=== PATIENT | male | born 1965 | race Caucasian/White ===

== ENCOUNTER 2017-03-03 14:12 | Emergency (ER) | payer OTHER, MEDICAID ==
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
[2017-03-03 14:23] VITALS: O2SAT 94
[2017-03-03 15:09] VITALS: BP 113/72; PULSE 71; RESP 20; TEMP 97.9
== END 2017-03-03 15:09 | disposition home or self-care (01) ==
LOC: EDUNIT#
DX: S29.9XXA Unspecified injury of thorax, initial encounter (principal); E11.9 Type 2 diabetes mellitus without complications; Z87.891 Personal history of nicotine dependence; V43.62XA Car passenger injured in collision with other type car in traffic accident, initial encounter; Y92.410 Unspecified street and highway as the place of occurrence of the external cause; Y99.8 Other external cause status

== ENCOUNTER 2017-04-28 11:49 | Emergency (ER) | payer OTHER, MEDICAID ==
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
[2017-04-28 14:33] VITALS: BP 100/75; PULSE 75; RESP 14; TEMP 97.9; O2SAT 90
== END 2017-04-28 14:25 | disposition home or self-care (01) ==
DX: S29.9XXA Unspecified injury of thorax, initial encounter (principal); E11.9 Type 2 diabetes mellitus without complications; Z87.891 Personal history of nicotine dependence; W22.8XXA Striking against or struck by other objects, initial encounter

== ENCOUNTER → 2017-06-22 | Outpatient (CLI) | payer OTHER, MEDICAID | DX: R13.10 Dysphagia, unspecified (principal); J18.9 Pneumonia, unspecified organism | CPT/HCPCS: 74230; 92611; G8996; G8997; G8998 ==

== ENCOUNTER 2017-08-08 12:32 | Inpatient (IN) | payer OTHER, MEDICAID ==
[2017-08-08] MEDS ORDERED: NS 500 ML IV ONE (13:00)
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
[2017-08-08 13:10] LABS: % IMMATURE GRANULYOCYTES 0.4 % (0.0-1.1); ABSOLUTE IMMATURE GRANULOCYTES 0.06 10^3/uL (0.00-0.10); ADD DIFF? NO; ADD MORPH? NO; ADD SCAN? NO; ATYPICAL LYMPHOCYTE FLAG 0 (0-99); FRAGMENT RBC FLAG 0 (0-99); HEMATOCRIT 42.7 % (40.0-51.0); LEFT SHIFT FLG 20 (0-99); LIPEMIA HEMOLYSIS FLAG 80 (0-99); MEAN CELL HEMOGLOBIN 32.9 pg (27.9-34.1); MEAN CELL HEMOGLOBIN CONCENTR. 32.8 g/dL (32.4-36.7); MEAN CELL VOLUME 100.5 fL (81.5-99.8); PLATELET CLUMPS FLAG 0 (0-99); PLATELET COUNT 88 10^3/uL (150-400); RED BLOOD CELL COUNT 4.25 10^6/uL (4.40-6.38); RED CELL DISTRIBUTION WIDTH 13.8 % (11.5-15.2)
[2017-08-08 13:23] LABS: ANION GAP 7 mEq/L (8-16); CALCIUM 9.3 mg/dL (8.5-10.4); CARBON DIOXIDE 37 mEq/l (22-31); CHLORIDE 101 mEq/L (97-110); CREATININE 0.8 mg/dL (0.7-1.3); GLOMERULAR FILTRATION RATE > 60; GLUCOSE 113 mg/dL (70-100); SODIUM 145 mEq/L (134-144)
[2017-08-08] MEDS ORDERED: ONDANSETRON 4 MG/2 ML VIAL IVP PRN (15:34)
[2017-08-08] MEDS ORDERED: ONDANSETRON DISINTEGRATING 4 MG TAB PO PRN (15:34)
[2017-08-08] MEDS ORDERED: D5W 1/2 NS 1,000 ML IV SCH (15:45)
[2017-08-08] MEDS: AMPICILLIN/SULBACTAM 3 GM in NS 100 ML IV SCH ×3 (17:01→23:20)
[2017-08-08] MEDS: methylPREDNISolone SOD SUCC 125 MG/2 ML VIAL IVP SCH ×3 (17:15→23:21)
[2017-08-08] MEDS: IPRATROPIUM/ALBUTEROL 3 ML DEYVIAL IH SCH ×3 (17:19→23:30)
[2017-08-08] MEDS ORDERED: FUROSEMIDE 40 MG/4 ML VIAL IVP ONE (17:45)
[2017-08-08] MEDS ORDERED: SULFAMETHOX/TMP 800/160 MG 1 TAB PO ONE (17:47)
[2017-08-08] MEDS ORDERED: IOPAMIDOL (ISOVUE 370) 100 ML BTL IV ONE (17:59)
--- NOTE | 2017-08-08 18:01 | PDGENHP ---
History and Physical - Chief Complaint Acute coughing - History of Present Illness 52-year-old male presenting with acute cough characterized as nonproductive, with associated shortness of breath, subjective fever, disorientation with onset of symptoms on the date of presentation and duration persistent thereafter. The patient reports he had otherwise been feeling well prior to his onset of symptoms and had been completing his normal activities of daily living. His caregiver reports that his diet was recently adjusted from thick liquids to thin liquids, but without any apparent aspiration. His shortness of breath is reportedly exacerbated by attempts at physical activity and movement, slightly alleviated by rest. History Information - Allergies/Home Medication List Allergies/Adverse Reactions: No Known Allergies Allergy (Verified 04/28/17 11:50) Home Medications: Albuterol [Proventil Neb] 3 ml IH BID 08/08/17 [Last Taken 08/08/17] Divalproex ER [Depakote ER 500 MG (*)] 1,000 mg PO HS 08/08/17 [Last Taken 08/07] Divalproex ER [Depakote ER 500 MG (*)] 500 mg PO DAILY 08/08/17 [Last Taken ] carBAMazepine [TEGretol (*)] 200 mg PO TID 08/08/17 [Last Taken 08/08/17] I have personally reviewed and updated: family history, medical history, social history, surgical history - Past Medical History Additional medical history: Cerebral palsy with resultant developmental delay, history of 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 PTSD. Seizure disorder. Aspiration pneumonia. Interstitial lung disease with chronic hypoxic respiratory failure, normally on 2 L nasal cannula. Hemorrhoids. Urinary incontinence. Major depressive disorder - Surgical History Reports: no pertinent surgical hx - Family History Additional family history: No venous thromboembolism, no congestive heart failure, a staff member at [facility] recently had the flu and several housemates have also recently been ill - Social History Smoking Status: Former smoker Alcohol Use: None Drug Use: None Additional social history: Lives at [facility], has caretakers, resides in wheelchair most of the time Review of Systems Review of Systems: ROS: 10pt was reviewed & negative except for what was stated in HPI & below Constitutional: Reports: chills, fever, weakness Respiratory: Reports: cough, shortness of breath Neurological: Reports: other (Disorientation) Physical Exam Physical Exam: Temp Pulse Resp BP Pulse Ox 37.5 C 70 21 H 120/73 93 08/08/17 16:35 08/08/17 17:23 08/08/17 16:35 08/08/17 16:35 08/08/17 17:23 O2 (L/minute) 2 Constitutional: not in pain, chronically ill appearing, uncomfortable (With visible tachypnea), other (Sweaty appearing) Eyes: PERRL, anicteric sclera, EOMI Ears, Nose, Mouth, Throat: moist mucous membranes, hearing normal, ears appear normal, no oral mucosal ulcers Cardiovascular: edema (1+ bilateral lower extremities), No systolic murmur, No irregularly irregular, No tachycardia Respiratory: reduced air movement (On expiration bilaterally), expiratory wheeze , inspiratory crackles, respiratory distress (Visible tachypnea and difficulty completing full sentences), No bronchial breath sounds Gastrointestinal: normoactive bowel sounds, soft, non-tender abdomen, no palpable masses, No distension Genitourinary: no bladder fullness, no bladder tenderness Neurologic: AAOx3, sensation intact bilaterally, weakness (4/5 motor strength left lower extremity) Psychiatric: interacting appropriately, not anxious, not encephalopathic, thought process linear, other (Concentration 2/7) Lab Data & Imaging Review 08/08/17 13:00 08/08/17 13:00 WBC 14.36 10^3/uL (3.80-9.50) H 08/08/17 13:00 RBC 4.25 10^6/uL (4.40-6.38) L 08/08/17 13:00 Hgb 14.0 g/dL (13.7-17.5) 08/08/17 13:00 Hct 42.7 % (40.0-51.0) 08/08/17 13:00 MCV 100.5 fL (81.5-99.8) H 08/08/17 13:00 MCH 32.9 pg (27.9-34.1) 08/08/17 13:00 MCHC 32.8 g/dL (32.4-36.7) 08/08/17 13:00 RDW 13.8 % (11.5-15.2) 08/08/17 13:00 Plt Count 88 10^3/uL (150-400) L 08/08/17 13:00 MPV 13.0 fL (8.7-11.7) H 08/08/17 13:00 Neut % (Auto) 74.3 % (39.3-74.2) H 08/08/17 13:00 Lymph % (Auto) 11.6 % (15.0-45.0) L 08/08/17 13:00 Gonzales % (Auto) 13.2 % (4.5-13.0) H 08/08/17 13:00 Eos % (Auto) 0.3 % (0.6-7.6) L 08/08/17 13:00 Baso % (Auto) 0.2 % (0.3-1.7) L 08/08/17 13:00 Nucleat RBC Rel Count 0.0 % (0.0-0.2) 08/08/17 13:00 Absolute Neuts (auto) 10.67 10^3/uL (1.70-6.50) H 08/08/17 13:00 Absolute Lymphs (auto) 1.66 10^3/uL (1.00-3.00) 08/08/17 13:00 Absolute Monos (auto) 1.89 10^3/uL (0.30-0.80) H 08/08/17 13:00 Absolute Eos (auto) 0.05 10^3/uL (0.03-0.40) 08/08/17 13:00 Absolute Basos (auto) 0.03 10^3/uL (0.02-0.10) 08/08/17 13:00 Absolute Nucleated RBC 0.00 10^3/uL (0-0.01) 08/08/17 13:00 Immature Gran % 0.4 % (0.0-1.1) 08/08/17 13:00 Immature Gran # 0.06 10^3/uL (0.00-0.10) 08/08/17 13:00 Sodium 145 mEq/L (134-144) H 08/08/17 13:00 Potassium 4.0 mEq/L (3.5-5.2) 08/08/17 13:00 Chloride 101 mEq/L (97-110) 08/08/17 13:00 Carbon Dioxide 37 mEq/l (22-31) H 08/08/17 13:00 Anion Gap 7 mEq/L (8-16) L 08/08/17 13:00 BUN 17 mg/dL (7-23) 08/08/17 13:00 Creatinine 0.8 mg/dL (0.7-1.3) 08/08/17 13:00 Estimated GFR > 60 08/08/17 13:00 Glucose 113 mg/dL (70-100) H 08/08/17 13:00 Calcium 9.3 mg/dL (8.5-10.4) 08/08/17 13:00 NT-Pro-B Natriuret Pep 1080 pg/mL (0-125) H 08/08/17 13:00 Procalcitonin 0.12 ng/mL (0.02-0.10) H 08/08/17 13:45 TSH 2.080 uIU/mL (0.465-4.680) 08/08/17 13:00 Visualized and Interpreted Chest x-ray results: Yes Chest X-Ray results: other (Diffuse interstitial markings, difficult to determine whether there is a focal infiltrate) Assessment & Plan Assessment: 52-year-old male presents with acute reactive airway exacerbation in the setting of suspected pneumonia and new onset lower extremity edema Plan: 1. Acute reactive airway exacerbation. New problem, further workup indicated. Evidenced by diffuse expiratory wheezes with reduced expiratory air movement and visible tachypnea, requiring up titration of supplemental oxygen to 4 L nasal cannula -unclear whether the patient has had viral precipitant, bacterial pneumonia, pulmonary embolism, CHF -will get CT angiogram to evaluate further -respiratory viral panel unremarkable -get sputum culture -placed on scheduled duo nebs, scheduled IV steroids, antibiotics -currently does not require ABG or BiPAP, but monitor respiratory status closely tonight 2. Suspected pneumonia. Acute, reviewed outside records including 06/03/2017 CBC demonstrating a normal white blood cell count 4900, currently has a white blood cell count of 14,400 with mild left shift as well as symptomatic cough and subjective fever -recent adjustment in liquids from thick to thin, get CHILD PSYCHIATRIST eval for further recommendations -getting advanced CT imaging of chest, if he does have a focal pneumonia, continue bacterial pneumonia coverage and strongly consider this to be an aspiration pneumonia -continue to monitor white blood cell count -placed on Unasyn 3 g q.6 hours -reviewed outside records including 02/12/[address] Marquita Wyatt, she reports the patient had aspiration pneumonia, required intubation, grew out bacteria requiring Bactrim, was discharged on 3 L nasal cannula at discharge -given patient's severity of illness, will give him empirically 1 dose of Bactrim, monitor culture resulting forward 3. Chronic hypoxic respiratory failure. Secondary to interstitial lung disease , getting advanced chest imaging as above, continue supplemental oxygen and monitor for signs of acute on chronic hypoxic respiratory failure if oxygen needs increase and the patient requires greater than his regular supplemental oxygen flow to maintain a sat greater than 90% 4. Lower extremity edema. Unclear whether the patient has a component of congestive heart failure exacerbation, BNP is elevated, his website programmer reports that his lower extremity edema is the for she has seen -get echocardiogram in a.m. -increase from home dosage of Lasix to IV, give 1 dose of 40 at this time, then continue 20 mg IV daily supplemental potassium 5. Cerebral palsy. Chronic, continue on all home medications for seizure and depression Diet. Regular with CHILD PSYCHIATRIST mahnaz in a.m. Prophylaxis. High risk patient, Lovenox 40 Code. Full, his uncle GM is his medical contact, telephone [phone] or [phone] Disposition. Anticipated discharge uncertain this time, anticipated length stay is greater than 48 hours for reasonable medical necessity including acute reactive airway exacerbation and high severity of illness for conditions outlined above. Discussed patient's presentation Dr. Luis Eduardo Pope, we both agree the patient should be monitored closely from a respiratory standpoint.
[2017-08-08] MEDS ORDERED: ALBUTEROL 3 ML DEYVIAL IH PRN (18:30)
--- NOTE | 2017-08-08 19:18 | PDMN ---
Medical Necessity Medical necessity: C/M review: est. > 2 MN LOS for eval and TX of acute reactive airway exacerbation, suspected pneumonia, new onset lower extremity edema requiring planned echocardiogram, ongoing IV Unasyn, Duonebs, IV Lasix, IV steroids, pulse oximetry, supplemental O2 up to 4L/min., acute inpt PT/OT/ST , comorbid chronic hypoxic respiratory failure secondary to interstitial lung disease with baseline chronic o2 2L/min., cerebral palsy with resultant developmental delay, hx traumatic brain injury with resultant left sided hemiparesis with dysphagia, PTSD, seizure disorder, urinary incontinence, major depressive disorder, hx aspiration pneumonia per H/P.
[2017-08-08] MEDS: SENNOSIDES 1 TAB PO SCH (21:01)
[2017-08-08] MEDS: GABAPENTIN 300 MG CAP PO SCH (21:01)
[2017-08-08] MEDS: guaiFENesin 600 MG TAB.ER PO SCH (21:01)
[2017-08-08] MEDS: TAMSULOSIN HCL 0.4 MG CAP PO SCH (21:01)
[2017-08-08] MEDS: carBAMazepine 200 MG TAB PO SCH (21:01)
[2017-08-08] MEDS: ALOE VERA TP SCH (21:02)
[2017-08-08] MEDS: CALCIUM CITRATE PO SCH (21:02)
[2017-08-08] MEDS: VIT D PO SCH (21:02)
[2017-08-08] MEDS: DIVALPROEX ER 500 MG TAB PO SCH (21:02)
[2017-08-08] MEDS: TROLAMINE SALICYLATE TP SCH (21:02)
[2017-08-08] MEDS ORDERED: CARBAMAZEPINE 100 MG CHEWABLE TAB PO SCH (22:00)
[2017-08-09 04:37] LABS: % IMMATURE GRANULYOCYTES 0.5 % (0.0-1.1); ABSOLUTE IMMATURE GRANULOCYTES 0.05 10^3/uL (0.00-0.10); ADD DIFF? NO; ADD MORPH? NO; ADD SCAN? NO; ATYPICAL LYMPHOCYTE FLAG 0 (0-99); FRAGMENT RBC FLAG 0 (0-99); HEMATOCRIT 38.6 % (40.0-51.0); HEMOGLOBIN 12.6 g/dL (13.7-17.5); LEFT SHIFT FLG 0 (0-99); LIPEMIA HEMOLYSIS FLAG 80 (0-99); MEAN CELL HEMOGLOBIN 32.6 pg (27.9-34.1); MEAN CELL HEMOGLOBIN CONCENTR. 32.6 g/dL (32.4-36.7); MEAN PLATELET VOLUME 12.3 fL (8.7-11.7); PLATELET CLUMPS FLAG 0 (0-99); PLATELET COUNT 73 10^3/uL (150-400); RED BLOOD CELL COUNT 3.86 10^6/uL (4.40-6.38); RED CELL DISTRIBUTION WIDTH 13.5 % (11.5-15.2)
[2017-08-09 04:51] LABS: ALANINE AMINOTRANSFERASE 24 IU/L (21-72); ALKALINE PHOSPHATASE 49 IU/L (38-126); ANION GAP 6 mEq/L (8-16); ASPARTATE AMINOTRANSFERASE 14 IU/L (17-59); BILIRUBIN,TOTAL 0.4 mg/dL (0.1-1.4); CALCIUM 8.6 mg/dL (8.5-10.4); CARBON DIOXIDE 40 mEq/l (22-31); CHLORIDE 98 mEq/L (97-110); CREATININE 0.6 mg/dL (0.7-1.3); GLOMERULAR FILTRATION RATE > 60; GLUCOSE 138 mg/dL (70-100); MAGNESIUM 1.8 mg/dL (1.6-2.3); POTASSIUM 4.1 mEq/L (3.5-5.2); SODIUM 144 mEq/L (134-144)
[2017-08-09] MEDS: AMPICILLIN/SULBACTAM 3 GM in NS 100 ML IV SCH ×2 (05:27→12:33)
[2017-08-09] MEDS: methylPREDNISolone SOD SUCC 125 MG/2 ML VIAL IVP SCH ×4 (06:09→23:03)
[2017-08-09] MEDS: GABAPENTIN 300 MG CAP PO SCH ×4 (06:09→20:07)
[2017-08-09] MEDS: IPRATROPIUM/ALBUTEROL 3 ML DEYVIAL IH SCH ×4 (06:11→22:50)
[2017-08-09] MEDS ORDERED: NON-FORMULARY NEW DRUG (Citalopram Hydrobromide [Celexa] 40 MG) PO SCH (09:00)
--- NOTE | 2017-08-09 09:59 | ECHO ---
[email or web address] [address] [address] Main: [phone] Fax: Transthoracic Echocardiogram Name: JODI DONAHUE MR#: [id number] Study Date: 08/09/2017 Study Time: 09:08 AM Date of : 1965 Age: 52 year(s) Height: 182.9 cm (72 in.) Weight: 91.17 kg (201 lb.) BSA: 2.13 m2 Gender: Male Examination: Echo Indication: Possibly new CHF Image Quality: Contrast: Requested by: Navarro Brown BP: 112 mmHg/66 mmHg Heart Rate: Rhythm: Indication: Possibly new CHF Procedure Staff City Maintenance Manager: Sun Menjivar Reading Physician: Kana Coon Requesting Provider: Conclusions: Normal global systolic LV function. The ejection fraction is estimated to be 60-65 %. Mild tricuspid regurgitation is present. Mild pulmonic valve regurgitation is noted. Measurements: Chambers Valvular Assessment AV/MV Valvular Assessment TV/PV Normal Normal Normal Name Value Range Name Value Range Name Value Range Ao Alyson (MM): 3.4 cm (2.2 cm-3.7 AV meanP mmHg ( - ) cm) MV E Vmax: 0.65 m/s ( - ) IVSd (2D): 0.7 cm (0.6 cm-1.1 MV A Vmax: 0.57 m/s ( - ) cm) MV E/A: 1.14 ( - ) LVDd (2D): 4.6 cm (4.2 cm-5.9 cm) LVDs (2D): 2.6 cm (2.1 cm-4 cm) LVPWd (2D): 0.6 cm (0.6 cm-1 cm) LVEF (2D): 75 (>=54 %) EF Range: 60-65 % Continued Measurements: Chambers Valvular Assessment AV/MV Name Value Name Value LADs: 3.3 cm MV E' Septal: 0.07 m/s MV E/E' Septal: 9.10 MV E/E' Lateral: 5.50 Patient: JODI DONAHUE Study Date: 08/09/2017 Page 1 of 2 09:08 AM Findings: Left Ventricle: Normal size left ventricle. No LV hypertrophy. Normal global systolic LV function. The ejection fraction is estimated to be 60-65 %. No regional wall motion abnormality. Right Ventricle: Normal size right ventricle. Left Atrium: The left atrium is normal in size. Right Atrium: The right atrium is normal in size. Mitral Valve: The mitral valve is normal in appearance and function. Aortic Valve: The aortic valve is normal in appearance and function. Tricuspid Valve: The tricuspid valve is normal in appearance and function. Mild tricuspid regurgitation is present. Pulmonic Valve: The pulmonic valve is normal in appearance and function. Mild pulmonic valve regurgitation is noted. Aorta: The aorta is normal. Pericardium: No pericardial effusion. There is pericardial fat. (No Signature Object) Patient: JODI DONAHUE Study Date: 08/09/2017 Page 2 of 2 09:08 AM [id number]
[2017-08-09] MEDS: POTASSIUM CL 20 MEQ TAB PO SCH (10:28)
[2017-08-09] MEDS: guaiFENesin 600 MG TAB.ER PO SCH ×2 (10:28→20:08)
[2017-08-09] MEDS: carBAMazepine 200 MG TAB PO SCH ×3 (10:28→23:03)
[2017-08-09] MEDS: DIVALPROEX ER 500 MG TAB PO SCH ×2 (10:29→20:08)
[2017-08-09] MEDS: SENNOSIDES 1 TAB PO SCH ×2 (10:29→20:08)
[2017-08-09] MEDS: FUROSEMIDE 20 MG/2 ML VIAL IVP SCH (10:30)
[2017-08-09] MEDS: CITALOPRAM 20 MG TAB PO SCH (10:30)
[2017-08-09] MEDS: ENOXAPARIN 40 MG/0.4 ML SYR SC SCH (10:31)
[2017-08-09] MEDS: CALCIUM CITRATE PO SCH (10:41)
[2017-08-09] MEDS: ALOE VERA TP SCH ×2 (10:41→20:08)
[2017-08-09] MEDS: VIT D PO SCH (10:41)
[2017-08-09] MEDS: TROLAMINE SALICYLATE TP SCH ×2 (10:41→20:08)
--- NOTE | 2017-08-09 12:15 | HOSPPROG ---
Hospitalist Progress Note Assessment/Plan: 52-year-old male presents with acute reactive airway exacerbation in the setting of suspected pneumonia and new onset lower extremity edema. First encounter, chart reviewed. Plan: 1. Acute reactive airway exacerbation. -likely the patient has had viral precipitant -CT angiogram no PE, RAD -respiratory viral panel unremarkable -sputum culture pending -placed on scheduled duo nebs, scheduled IV steroids, antibiotics -change abx to azithro 2. Suspected pneumonia. -not likely given CTA -hx of aspiration -procalcitonin .12 -recent adjustment in liquids from thick to thin, get DREDGE PIPEMAN eval for further recommendations -continue to monitor white blood cell count, improved -placed on Unasyn 3 g q.6 hours, will DC. CTA no signs of PNA -follow closely 3. Chronic hypoxic respiratory failure. Secondary to interstitial lung disease, continue supplemental oxygen 4. Lower extremity edema. better BNP is 1080 echocardiogram stable, no signs CHF gave one dose Lasix to IV, give 1 dose of 40 at this time, then continue 20 mg IV daily supplemental potassium 5. Cerebral palsy. Chronic, continue on all home medications for seizure and depression Diet. Regular with DREDGE PIPEMAN eval in a.m. Prophylaxis. High risk patient, Lovenox 40 Code. Full, his uncle GM is his medical contact, telephone [phone] or [phone] Disposition. Anticipated discharge uncertain this time, anticipated length stay is greater than 48 hours for reasonable medical necessity including acute reactive airway exacerbation and high severity of illness for conditions outlined above. Subjective: Feeling better then yesterday. Still coughing. No pain. Objective: Vital Signs Temp Pulse Resp BP Pulse Ox 36.2 C 62 20 112/66 93 08/09/17 08:00 08/09/17 08:00 08/09/17 08:00 08/09/17 08:00 08/09/17 08:00 Laboratory Results 08/09/17 04:25 08/09/17 04:25 08/08/17 08/09/17 08/10/17 05:59 05:59 05:59 Output Total 350 Balance -350 - Physical Exam Constitutional: appears nourished, not in pain, chronically ill appearing Eyes: PERRL, anicteric sclera, EOMI Ears, Nose, Mouth, Throat: moist mucous membranes, hearing normal, ears appear normal Cardiovascular: regular rate and rhythym, edema, No JVD Respiratory: no respiratory distress, no rales or rhonchi, reduced air movement Gastrointestinal: normoactive bowel sounds, No tenderness, No ascites Skin: warm, normal color, No mottled Musculoskeletal: normal joint ROM, no joint effusions, generalized weakness Psychiatric: not anxious, not encephalopathic, poor judgement, poor memory ICD10 Worksheet Patient Problems: Problems Problem Status Onset Acute and chronic respiratory failure with hypoxia Acute Hypoxemia Acute Cough Acute
--- NOTE | 2017-08-09 14:54 | ASMTCMCOM ---
CM Note CM Note Notes: Chart reviewed. Patient here with hypoxia and exacerbation of reactive airway disease. [facility] has caregivers [facility]. CXR stable. Needs TBD at this time.CM to follow. Date Signed: 08/09/2017 02:54 PM Electronically Signed By:Ebony Marquis RN
[2017-08-09] MEDS: CALCIUM CARB W/VIT D 500 MG TAB PO SCH (20:07)
[2017-08-09] MEDS: TAMSULOSIN HCL 0.4 MG CAP PO SCH (20:08)
[2017-08-10] MEDS: methylPREDNISolone SOD SUCC 125 MG/2 ML VIAL IVP SCH (05:21)
[2017-08-10] MEDS: GABAPENTIN 300 MG CAP PO SCH ×4 (05:21→21:29)
[2017-08-10] MEDS: IPRATROPIUM/ALBUTEROL 3 ML DEYVIAL IH SCH ×3 (05:24→16:40)
--- NOTE | 2017-08-10 09:02 | HOSPPROG ---
Hospitalist Progress Note Assessment/Plan: 52-year-old male presents with acute reactive airway exacerbation in the setting of suspected pneumonia and new onset lower extremity edema. First encounter, chart reviewed. * acute reactive airway disease exacerbation -CTA shows no pulmonary emboli -respiratory viral panel negative -on IV steroids as well as azithromycin -will discontinue IV steroids and start him on prednisone * questionable pneumonia -has a history of aspiration, speech therapy to see -procalcitonin level is 0.12 -initially treated with Unasyn -patient states he was febrile on admission * chronic hypoxemic respiratory failure -secondary to interstitial lung disease -has seen pulmonology in the past -CTA shows pulmonary artery hypertension -at baseline patient is on 2 L of oxygen, is currently on 4 L * lower extremity edema -echocardiogram shows an EF of 60-65% with no regional wall abnormalities -on IV lasix/will dc after this morning's dose * thrombocytopenia -will follow * macrocytosis * cerebral palsy -patient lives at [facility] * DVT Prophylaxis. Lovenox was initiated but will hold due to low platelet count -nursing staff to place athrombic pumps Code. Full, his uncle AMOS is his medical contact, telephone [phone] or Subjective: Jason is feeling better today. Says everyone has been sick at [facility]. Objective: Vital Signs Temp Pulse Resp BP Pulse Ox 36.5 C 58 L 12 101/57 L 96 08/10/17 07:37 08/10/17 07:37 08/10/17 07:37 08/10/17 07:37 08/10/17 07:37 Laboratory Results 08/09/17 04:25 08/09/17 04:25 08/09/17 08/10/17 08/11/17 05:59 05:59 05:59 Intake Total 454 Output Total 350 975 Balance -350 -521 - Physical Exam Constitutional: not in pain, chronically ill appearing Eyes: PERRL Ears, Nose, Mouth, Throat: hearing normal Cardiovascular: regular rate and rhythym, edema (1+ bilateral lower ext) Respiratory: no respiratory distress, reduced air movement (mainly in left lower lobe) Gastrointestinal: normoactive bowel sounds Skin: warm Musculoskeletal: generalized weakness Neurologic: other (alert and oriented to person, place/ at times difficult to understand) Psychiatric: interacting appropriately, not anxious ICD10 Worksheet Patient Problems: Problems Problem Status Onset Cough Acute Hypoxemia Acute Acute and chronic respiratory failure with hypoxia Acute
[2017-08-10] MEDS: ENOXAPARIN 40 MG/0.4 ML SYR SC SCH (09:16)
[2017-08-10] MEDS: TROLAMINE SALICYLATE TP SCH ×2 (09:17→21:34)
[2017-08-10] MEDS: ALOE VERA TP SCH ×2 (09:17→21:34)
[2017-08-10] MEDS: CALCIUM CARB W/VIT D 500 MG TAB PO SCH ×2 (09:33→21:29)
[2017-08-10] MEDS: AZITHROMYCIN 250 MG TAB PO SCH (09:34)
[2017-08-10] MEDS: guaiFENesin 600 MG TAB.ER PO SCH ×2 (09:34→21:29)
[2017-08-10] MEDS: CITALOPRAM 20 MG TAB PO SCH (09:35)
[2017-08-10] MEDS: SENNOSIDES 1 TAB PO SCH ×2 (09:35→21:29)
[2017-08-10] MEDS: POTASSIUM CL 20 MEQ TAB PO SCH ×2 (09:35→09:43)
[2017-08-10] MEDS: carBAMazepine 200 MG TAB PO SCH ×3 (09:36→21:29)
[2017-08-10] MEDS: DIVALPROEX ER 500 MG TAB PO SCH ×2 (09:36→21:29)
[2017-08-10] MEDS: predniSONE 20 MG TAB PO SCH (09:39)
[2017-08-10] MEDS: FUROSEMIDE 20 MG/2 ML VIAL IVP SCH (09:43)
[2017-08-10] MEDS ORDERED: FLU VACC QS 2017-18 (3YR+)/PF 0.5 ML SYR (FLUARIX QUAD) IM ONE (09:46)
--- NOTE | 2017-08-10 14:02 | ASMTCMCOM ---
CM Note CM Note Notes: Met with patient who is improving. He lives in [facility] with caretakers. Patient most likely will be able to d/c back to [facility]. He already has O2 at home. CM available if d/c needs arise. Date Signed: 08/10/2017 02:01 PM Electronically Signed By:Macey Soler LCSW
[2017-08-10] MEDS: TAMSULOSIN HCL 0.4 MG CAP PO SCH (21:29)
[2017-08-11] MEDS: IPRATROPIUM/ALBUTEROL 3 ML DEYVIAL IH SCH ×5 (00:03→22:45)
[2017-08-11] MEDS: ACETAMINOPHEN 325 MG TAB PO PRN ×2 (00:15→05:17)
[2017-08-11] MEDS: GABAPENTIN 300 MG CAP PO SCH ×4 (05:17→22:41)
[2017-08-11 05:51] LABS: % IMMATURE GRANULYOCYTES 0.6 % (0.0-1.1); ABSOLUTE IMMATURE GRANULOCYTES 0.05 10^3/uL (0.00-0.10); ADD DIFF? NO; ADD MORPH? NO; ADD SCAN? NO; ATYPICAL LYMPHOCYTE FLAG 20 (0-99); FRAGMENT RBC FLAG 0 (0-99); HEMATOCRIT 37.3 % (40.0-51.0); HEMOGLOBIN 12.1 g/dL (13.7-17.5); LEFT SHIFT FLG 0 (0-99); LIPEMIA HEMOLYSIS FLAG 80 (0-99); MEAN CELL HEMOGLOBIN 32.1 pg (27.9-34.1); MEAN CELL HEMOGLOBIN CONCENTR. 32.4 g/dL (32.4-36.7); MEAN CELL VOLUME 98.9 fL (81.5-99.8); MEAN PLATELET VOLUME 12.8 fL (8.7-11.7); PLATELET CLUMPS FLAG 0 (0-99); PLATELET COUNT 93 10^3/uL (150-400); RED BLOOD CELL COUNT 3.77 10^6/uL (4.40-6.38); RED CELL DISTRIBUTION WIDTH 13.8 % (11.5-15.2)
[2017-08-11] MEDS: DIVALPROEX ER 500 MG TAB PO SCH ×2 (10:02→22:40)
[2017-08-11] MEDS: CITALOPRAM 20 MG TAB PO SCH (10:02)
[2017-08-11] MEDS: SENNOSIDES 1 TAB PO SCH ×2 (10:03→22:41)
[2017-08-11] MEDS: carBAMazepine 200 MG TAB PO SCH ×3 (10:03→22:41)
[2017-08-11] MEDS: predniSONE 20 MG TAB PO SCH (10:03)
[2017-08-11] MEDS: CALCIUM CARB W/VIT D 500 MG TAB PO SCH ×2 (10:03→22:40)
[2017-08-11] MEDS: AZITHROMYCIN 250 MG TAB PO SCH (10:03)
[2017-08-11] MEDS: guaiFENesin 600 MG TAB.ER PO SCH ×2 (10:03→22:41)
--- NOTE | 2017-08-11 10:03 | HOSPPROG ---
Hospitalist Progress Note Assessment/Plan: 52-year-old male presents with acute reactive airway exacerbation in the setting of suspected pneumonia and new onset lower extremity edema. * acute reactive airway disease exacerbation -CTA shows no pulmonary emboli -respiratory viral panel negative -oral steroids and azithro * questionable pneumonia -has a history of aspiration, speech therapy to see -procalcitonin level is 0.12 -initially treated with Unasyn -patient states he was febrile on admission * chronic hypoxemic respiratory failure -secondary to interstitial lung disease -has seen pulmonology in the past -CTA shows pulmonary artery hypertension -he is at his baseline -suspect he is aspirating frequently/ spoke w ST who recommended a video * lower extremity edema -echocardiogram shows an EF of 60-65% with no regional wall abnormalities -was treated w iv lasix * thrombocytopenia -platelet count 93 * macrocytosis * cerebral palsy -patient lives at [facility] * DVT Prophylaxis. Lovenox was initiated but will hold due to low platelet count -nursing staff to place athrombic pumps Code. Full, his uncle AMOS is his medical contact, telephone [phone] or *Plan: will get video today. If stable, he could return to [facility]. Subjective: Jason is feeling better today. Eating and drinking well. Objective: Vital Signs Temp Pulse Resp BP Pulse Ox 37.0 C 63 14 95/60 L 92 08/11/17 07:23 08/11/17 07:23 08/11/17 07:23 08/11/17 07:23 08/11/17 07:23 Laboratory Results 08/11/17 04:56 08/09/17 04:25 08/10/17 08/11/17 08/12/17 05:59 05:59 05:59 Intake Total 454 772 Output Total 975 300 Balance -521 472 - Physical Exam Constitutional: no apparent distress, chronically ill appearing Eyes: PERRL Ears, Nose, Mouth, Throat: hearing normal Respiratory: no respiratory distress Skin: warm Musculoskeletal: generalized weakness Neurologic: AAOx3 Psychiatric: interacting appropriately, not anxious, not encephalopathic ICD10 Worksheet Patient Problems: Problems Problem Status Onset Cough Acute Hypoxemia Acute Acute and chronic respiratory failure with hypoxia Acute
[2017-08-11] MEDS: ALOE VERA TP SCH ×2 (10:12→22:42)
[2017-08-11] MEDS: TROLAMINE SALICYLATE TP SCH ×2 (10:12→22:42)
--- NOTE | 2017-08-11 16:15 | ASMTCMCOM ---
CM Note CM Note Notes: Nayana from [facility] called for an update. Patient had a swallow eval today and has been placed on a Dysphagia 2 diet. Faxed the information to Nayana with [facility] at [phone]. Deb Alcala NP plans to d/c patient tomorrow 08/11/2017 after 10:00 AM. Kalpana states they can send their van to transport patient back home. CM will need to call her tomorrow to agree upon a time and the d/c packet needs to be faxed to [phone]. (they do not have [employer]) CM will follow. Date Signed: 08/11/2017 04:15 PM Electronically Signed By:Macey Soler LCSW
[2017-08-11] MEDS: TAMSULOSIN HCL 0.4 MG CAP PO SCH (22:40)
[2017-08-12] MEDS: IPRATROPIUM/ALBUTEROL 3 ML DEYVIAL IH SCH (05:33)
[2017-08-12] MEDS: GABAPENTIN 300 MG CAP PO SCH (05:37)
[2017-08-12] MEDS: CITALOPRAM 20 MG TAB PO SCH (08:49)
[2017-08-12] MEDS: guaiFENesin 600 MG TAB.ER PO SCH (08:49)
[2017-08-12] MEDS: AZITHROMYCIN 250 MG TAB PO SCH (08:49)
[2017-08-12] MEDS: predniSONE 20 MG TAB PO SCH (08:50)
[2017-08-12] MEDS: CALCIUM CARB W/VIT D 500 MG TAB PO SCH (08:50)
[2017-08-12] MEDS: DIVALPROEX ER 500 MG TAB PO SCH (08:50)
[2017-08-12] MEDS: carBAMazepine 200 MG TAB PO SCH (08:50)
[2017-08-12] MEDS: SENNOSIDES 1 TAB PO SCH (08:50)
[2017-08-12] MEDS: TROLAMINE SALICYLATE TP SCH (08:51)
[2017-08-12] MEDS: ALOE VERA TP SCH (08:51)
--- NOTE | 2017-08-12 08:53 | HOSPPROG ---
Hospitalist Progress Note Assessment/Plan: 52-year-old male presents with acute reactive airway exacerbation in the setting of suspected pneumonia and new onset lower extremity edema. * acute reactive airway disease exacerbation -CTA shows no pulmonary emboli -respiratory viral panel negative -oral steroids and azithro -much improved * questionable pneumonia -video study doesn't show overt aspiration -procalcitonin level is 0.12 -initially treated with Unasyn -patient states he was febrile on admission * chronic hypoxemic respiratory failure -secondary to interstitial lung disease -has seen pulmonology in the past -CTA shows pulmonary artery hypertension -he is at his baseline * lower extremity edema -echocardiogram shows an EF of 60-65% with no regional wall abnormalities -was treated w iv lasix -better today * thrombocytopenia -platelet count 93 * macrocytosis * cerebral palsy -patient lives at [facility] * DVT Prophylaxis. Lovenox was initiated but will hold due to low platelet count -nursing staff to place athrombic pumps Code. Full, his uncle GM is his medical contact, telephone [phone] or *Plan: dc today Subjective: Jason has no complaints/ sleepy this morning. Objective: Vital Signs Temp Pulse Resp BP Pulse Ox 36.9 C 63 16 101/63 92 08/11/17 23:29 08/11/17 23:29 08/11/17 23:29 08/11/17 23:29 08/11/17 23:29 Laboratory Results 08/11/17 04:56 08/09/17 04:25 08/11/17 08/12/17 08/13/17 05:59 05:59 05:59 Intake Total 772 200 Output Total 300 600 Balance 472 -400 - Physical Exam Constitutional: no apparent distress, not in pain Ears, Nose, Mouth, Throat: hearing normal Cardiovascular: regular rate and rhythym Respiratory: no respiratory distress Skin: warm Musculoskeletal: generalized weakness Neurologic: AAOx3 Psychiatric: interacting appropriately ICD10 Worksheet Patient Problems: Problems Problem Status Onset Cough Acute Hypoxemia Acute Acute and chronic respiratory failure with hypoxia Acute
--- NOTE | 2017-08-12 08:58 | PDIAF ---
- Diagnosis Diagnosis: acute reactive airway disease Code Status: Full Code - Medication Management Discharge Medications: Medications to Continue on Transfer Tamsulosin HCl [Flomax 0.4 MG (*)] 0.4 mg PO HS #0 cap 02/12/15 [Last Taken ] Calcium Citrate W/Vit D [Citracal + D] 2 each PO BID #60 tab 03/06/15 [Last Taken 08/08/17] Citalopram Hydrobromide [Celexa] 40 mg PO DAILY #30 tablet 03/06/15 [Last Taken 08/08/17] Furosemide [Lasix 20 MG (*)] 10 mg PO DAILY #14 tab 03/06/15 [Last Taken ] Gabapentin [Neurontin 300 MG (*)] 300 mg PO QID #120 cap 03/06/15 [Last Taken ] Sennosides [Senokot] 1 tab PO BID #60 tab 03/06/15 [Last Taken 08/08/17] Trolamine Salicylate/Aloe Vera [Aspercreme 10% Cream] 1 anil TP BID #30 cream.gm. 03/06/15 [Last Taken 08/08/17] guaiFENesin [Mucinex 600 MG (*)] 600 mg PO BID #60 tab.er 03/06/15 [Last Taken 08/08/17] Albuterol [Proventil Neb] 3 ml IH BID 08/08/17 [Last Taken 08/08/17] Divalproex ER [Depakote ER 500 MG (*)] 1,000 mg PO HS 08/08/17 [Last Taken 08/07] Divalproex ER [Depakote ER 500 MG (*)] 500 mg PO DAILY 08/08/17 [Last Taken ] carBAMazepine [TEGretol (*)] 200 mg PO TID 08/08/17 [Last Taken 08/08/17] predniSONE 20 mg PO DAILY #6 tablet 08/12/17 [Last Taken Unknown] Discharge Medications: Refer to the Discharge Home Medication list for PRN reason. - Orders Services needed: Home Care, Speech Language Pathologist Home Care Face to Face: I certify that this patient was under my care and that I had the required [id number] encounter meeting the encounter requirements on the discharge day. My findings support the fact that the patient is homebound as defined in Home Care Face to Face Continued: CMS Chapter 7 Medicare Benefits Manual 30.1.1 , The condition of the patient is such that there exists a normal inability to leave home and consequently, leaving home would require a considerable and taxing effort. Isolation Type: None Diet Recommendation: no restrictions on diet Diet Texture: Dysphagia 2 - Mechanically Altered - Chopped, Ground, Thin Liquids , Meds Whole w/Liquids Additional: PREDNSIONE 20 MG X 3 DAYS, THEN 10 MG X 3 DAYS, the stop. Take w food in the morning. - Follow Up Care Current Providers and Referrals: TAMMY WEINER [Other] - As per Instructions
[2017-08-12 09:06] VITALS: BP 131/68; PULSE 69; RESP 18; TEMP 97.9; O2SAT 89
--- NOTE | 2017-08-12 09:29 | GDS ---
[f rep st] DISCHARGE SUMMARY DISCHARGE DIAGNOSES: 1. Acute reactive airway disease exacerbation. 2. Concern for pneumonia on admission. 3. Chronic hypoxemic respiratory failure. 4. Lower extremity edema. 5. Thrombocytopenia. 6. Macrocytosis. 7. Cerebral palsy. HISTORY: Briefly, the patient is a 52-year-old male who presented with acute reactive airway disease exacerbation. There was concern that he had pneumonia and new onset lower extremity edema. During his stay, he had a CTA that was performed that showed no visible pulmonary embolus. It shows that he has grossly stable interstitial lung disease with probable superimposed airway disease. He had pulmonary artery hypertension. An echocardiogram was performed. This showed an EF of 60% to 65%, without any regional wall abnormalities. He was treated with IV Lasix for his lower extremity swelling. This improved. Also, there was concern that he was aspirating. He had a video esophagram swallow study performed, which showed no aspiration observed. He had trace penetration that was intermittently seen with thin liquids. He will be discharged home on a detailed diet, instructions per Speech Therapy. HOSPITAL COURSE: 1. Acute reactive airway disease exacerbation. His respiratory viral panel is negative. He was treated with oral steroids and azithromycin. He is much improved. Will continue a few more days of the prednisone. 2. Questionable pneumonia. There is a concern he might be aspirating. The video study did not show this. He also had a low procalcitonin level at 0.12. 3. Chronic hypoxemic respiratory failure. He is at his baseline. 4. Lower extremity edema. He is on low-dose Lasix chronically. This improved with a few doses of IV Lasix. 5. Thrombocytopenia. Further followup with his PCP. 6. Macrocytosis. Further followup with PCP through palsy. He lives at [facility] and gets good care there. DISCHARGE CONDITION: Stable. Blood pressure is 101/63. Heart rate is 63. Respiratory rate is 16. O2 saturation on 2 L is 92%. Temperature is 36.9 Celsius. DISCHARGE MEDICATIONS: Please see the EMR. DISCHARGE INSTRUCTIONS: 1. To continue recommendations per Speech Therapy. 2. If he develops a fever, chills, chest pain, or shortness of breath, return to the ER. Greater than 30 minutes discharging and coordinating patient's care. /[id number]/MODL MTDD
--- NOTE | 2017-08-12 15:57 | ASDISCHSUM ---
Discharge Information Plan Status:Intermediate Medically Cleared to Leave:08/11/2017 Discharge Date:08/12/2017 12:31 PM CM D/C Disposition: ADT D/C Disposition:Long-Term Facility Projected Discharge Date:08/12/2017 12:00 AM Transportation at D/C: Discharge Delay Reason: Follow-Up Date:08/12/2017 12:00 AM Discharge Slot: Final Diagnosis: Placement Information Patient Contact Information Contact Name:ENZO Relationship: Address: City: [facility] Phone: State/Zip Code: Email: Financial Information Financial Class: Primary Plan Desc:MEDICARE INPATIENT Primary Plan Number:[id number] Secondary Plan Desc:MED[place] Secondary Plan Number:[id number] Assessment Information LACE LACE Acuity / Level of Care Answers: Was the patient admitted to hospital via the emergency department? Yes: Comorbidities - select Answers: Chronic pulmonary disease all that apply Emergency dept visits in Answers: 1 last 6 months Score: 6 Date Signed: 08/09/2017 02:52 PM Electronically Signed By:Ebony Marquis RN [facility] Progress Note CM Note CM Note Notes: Chart reviewed. Patient here with hypoxia and exacerbation of reactive airway disease. He has caregivers and lives in a fdc. CXR stable. Needs TBD at this time.CM to follow. Date Signed: 08/09/2017 02:54 PM Electronically Signed By:Ebony Marquis RN [facility] Progress Note CM Note CM Note Notes: Met with patient who is improving. He lives in [facility] with caretakers. Patient most likely will be able to d/c back to [facility]. He already has O2 at home. CM available if d/c needs arise. Date Signed: 08/10/2017 02:01 PM Electronically Signed By:Macey Soler LCSW [facility] Progress Note CM Note CM Note Notes: Nayana from [facility] called for an update. Patient had a swallow eval today and has been placed on a Dysphagia 2 diet. Faxed the information to Nayana with [facility] at [phone]. Deb Alcala NP plans to d/c patient tomorrow 08/11/2017 after 10:00 AM. Kalpana states they can send their van to transport patient back home. CM will need to call her tomorrow to agree upon a time and the d/c packet needs to be faxed to [phone]. (they do not have [employer]) CM will follow. Date Signed: 08/11/2017 04:15 PM Electronically Signed By:Macey Soler LCSW Intervention Information Intervention Type:*GARCIA-Signed Date of Service:08/12/2017 09:53 AM Patient Type:Inpatient Staff Member:Rosangela Flynn Hours: Discipline: Severity: Comment:
== END 2017-08-12 12:31 | DRG 202 ==
LOC: F3E 16:18 → OBSVTOIN 18:11
PROVIDERS: ADMIT Internal Medicine; ATTEND Internal Medicine
DX: J45.901 Unspecified asthma with (acute) exacerbation (principal); J84.10 Pulmonary fibrosis, unspecified; J96.11 Chronic respiratory failure with hypoxia; I27.21 Secondary pulmonary arterial hypertension; D69.6 Thrombocytopenia, unspecified; D75.89 Other specified diseases of blood and blood-forming organs; G80.9 Cerebral palsy, unspecified; F81.9 Developmental disorder of scholastic skills, unspecified; G40.909 Epilepsy, unspecified, not intractable, without status epilepticus; Z87.820 Personal history of traumatic brain injury; G81.94 Hemiplegia, unspecified affecting left nondominant side; F32.9 Major depressive disorder, single episode, unspecified; Z23 Encounter for immunization
CPT/HCPCS: 92526-GN; 92610-GN; 92611-GN; 97162-GP; 97166-GO; 97530-GP; 97535-GO; G0008; G8978-GP-CL; G8979-GP-CK; G8987-GO-CL; G8988-GO-CL; G8996-GN-CJ; G8997-GN-CI; G8998-GN-CI; J0295; J1650; J1940; J2930; Q9967

== ENCOUNTER 2018-01-18 11:00 | Emergency (ER) | payer OTHER, MEDICAID ==
[2018-01-18] MEDS ORDERED: IPRATROPIUM/ALBUTEROL 3 ML DEYVIAL ONE (12:17)
[2018-01-18] MEDS ORDERED: IPRATROPIUM/ALBUTEROL 3 ML DEYVIAL IH ONE (12:17)
--- NOTE | 2018-01-18 12:17 | EDPHY ---
H & P Stated Complaint: Cough for several days, low oxygen at home. Time Seen by Provider: 01/18/18 11:55 HPI/ROS: CHIEF COMPLAINT: Acute cough HISTORY OF PRESENT ILLNESS: The patient presents to the ED with a 1 day history of acute cough and reported hypoxemia. The patient has a history of chronic interstitial lung disease. He is typically on 2-3 L a minute of oxygen. The patient receives a nebulizer twice a day. The patient is wheelchair-bound. The patient has not been recently hospitalized. No recent antibiotics according to caregiver. The patient denies fever. He denies any acute painful complaints. REVIEW OF SYSTEMS: A comprehensive 10 point review of systems is otherwise negative aside from elements mentioned in the history of present illness. Source: Patient - Personal History Current Tetanus Diphtheria and Acellular Pertussis (TDAP): Yes Tetanus Vaccine Date: 2008 - Medical/Surgical History Hx Asthma: No Hx Chronic Respiratory Disease: Yes Hx Diabetes: Yes Hx Cardiac Disease: No Hx Renal Disease: No Hx Cirrhosis: No Hx Alcoholism: No Hx HIV/AIDS: No Hx Splenectomy or Spleen Trauma: No Other PMH: CP, DYSPHAGIA, FATIGUE, SZ, HEMOROIDS, ARDS, PULMONARY FIBROSIS, INTERSTITIAL LUNG DX, DEPRESSION,Mental Retardation, PTSTD, brain injury - Social History Smoking Status: Former smoker - Physical Exam Exam: General Appearance: Alert, no distress Eyes: Pupils equal and round no pallor or injection ENT, Mouth: Mucous membranes moist Respiratory: Crackles bilaterally Cardiovascular: Regular rate and rhythm Gastrointestinal: Abdomen is soft and nontender, no masses, bowel sounds normal Neurological: Lower extremity weakness secondary to chronic neurologic disease Skin: Warm and dry, no rashes Musculoskeletal: Neck is supple nontender Extremities: symmetrical, full range of motion Constitutional: Initial Vital Signs Temperature (C) 37.1 C 01/18/18 11:03 Heart Rate 74 01/18/18 11:03 Respiratory Rate 20 01/18/18 11:03 Blood Pressure 107/64 01/18/18 11:03 O2 Sat (%) 96 01/18/18 11:03 O2 Delivery Mode Nasal Cannula O2 (L/minute) 3 Allergies/Adverse Reactions: No Known Allergies Allergy (Verified 04/28/17 11:50) Home Medications: Medication Instructions Recorded Tamsulosin HCl [Flomax 0.4 MG (*)] 0.4 mg PO HS #0 cap 02/12/15 Calcium Citrate W/Vit D [Citracal 2 each PO BID #60 tab 03/06/15 + D] Citalopram Hydrobromide [Celexa] 40 mg PO DAILY #30 tablet 03/06/15 Furosemide [Lasix 20 MG (*)] 10 mg PO DAILY #14 tab 03/06/15 Gabapentin [Neurontin 300 MG (*)] 300 mg PO QID #120 cap 03/06/15 Sennosides [Senokot] 1 tab PO BID #60 tab 03/06/15 Trolamine Salicylate/Aloe Vera 1 anil TP BID #30 cream.gm. 03/06/15 [Aspercreme 10% Cream] guaiFENesin [Mucinex 600 MG (*)] 600 mg PO BID #60 tab.er 03/06/15 Albuterol [Proventil Neb] 3 ml IH BID 08/08/17 Divalproex ER [Depakote ER 500 MG 1,000 mg PO HS 08/08/17 (*)] Divalproex ER [Depakote ER 500 MG 500 mg PO DAILY 08/08/17 (*)] carBAMazepine [TEGretol (*)] 200 mg PO TID 08/08/17 predniSONE 20 mg PO DAILY #6 tablet 08/12/17 Medical Decision Making - Diagnostics Imaging Results: Imaging Impressions Chest X-Ray 01/18/18 11:55 Impression: Suspect recurrent aspiration in the right mid lung superimposed on underlying interstitial lung disease. ED Course/Re-evaluation: The patient presents to the ED with complaints of an acute cough. The patient was noted to be at his baseline oxygen saturation. The patient did have some rhonchorous breath sounds. The patient was taken for a chest x-ray which suggested the possibility of a recurrent aspiration. The patient is afebrile. He has no hypotension or tachycardia. The patient was given a DuoNeb treatment in the emergency department. The patient will be treated with antibiotics for possible aspiration. Differential Diagnosis: Differential diagnosis considered includes asthma, bronchitis, pneumonia, heart failure - Data Points Medications Given: Discontinued Medications Albuterol/Ipratropium (Duoneb) 3 ml IH EDNOW ONE Stop: 01/18/18 12:18 Last Admin: 01/18/18 12:18 Dose: 3 ml Departure - Departure Disposition: Home, Routine, Self-Care Clinical Impression: Acute and chronic respiratory failure with hypoxia Condition: Good Instructions: Chronic Cough (ED) Additional Instructions: 1. Take antibiotics as prescribed for next 10 days. 2. Return to the ED for markedly worsening symptoms or other concerns. 3. Please continue to use albuterol up to every 6 hr as needed for cough. Referrals: ROBERT COLVIN [Other] - As per Instructions
[2018-01-18 13:10] VITALS: BP 111/71
== END 2018-01-18 13:24 | disposition home or self-care (01) ==
DX: J96.20 Acute and chronic respiratory failure, unspecified whether with hypoxia or hypercapnia (principal); E11.9 Type 2 diabetes mellitus without complications; Z87.891 Personal history of nicotine dependence

== ENCOUNTER 2018-01-18 22:52 | Inpatient (IN) | payer OTHER, MEDICAID ==
[2018-01-18] MEDS ORDERED: ALBUTEROL 3 ML DEYVIAL IH ONE ×2 (22:58→23:12)
[2018-01-18] MEDS ORDERED: MAGNESIUM SULF 2 GM/WATER 50 ML IV ONE ×2 (22:58)
[2018-01-18] MEDS ORDERED: methylPREDNISolone SOD SUCC 40 MG/ML VIAL ONE (22:59)
[2018-01-18] MEDS ORDERED: MAGNESIUM SULF 2 GM/WATER 50 ML BAG IV ONE (22:59)
--- NOTE | 2018-01-18 23:04 | CPEKG ---
Heart Rate: 99 RR Interval: 606 P-R Interval: 144 QRSD Interval: 84 QT Interval: 336 QTC Interval: 432 P Denton: 80 QRS [place]enton: 96 T Wave Denton: 55 EKG Severity - OTHERWISE NORMAL ECG - EKG Impression: SINUS RHYTHM EKG Impression: BORDERLINE RIGHT AXIS DEVIATION Electronically Signed By: Zaira Quevedo 19-Jan-2018 22:43:23
[2018-01-18] MEDS: methylPREDNISolone SOD SUCC 125 MG/2 ML VIAL IVP ONE ×2 (23:05→23:06)
[2018-01-18] MEDS ORDERED: PIPERACILLIN/TAZO 3.375 GM/DEX 50 ML IV ONE (23:07)
[2018-01-18] MEDS ORDERED: IPRATROPIUM/ALBUTEROL 3 ML DEYVIAL IH ONE (23:12)
[2018-01-18 23:29] LABS: PLATELET COUNT 103 10^3/uL (150-400)
[2018-01-19] MEDS ORDERED: ONDANSETRON 4 MG/2 ML VIAL IVP PRN (00:56)
[2018-01-19] MEDS ORDERED: ONDANSETRON DISINTEGRATING 4 MG TAB PO PRN (00:56)
[2018-01-19] MEDS ORDERED: ALBUTEROL 3 ML DEYVIAL IH PRN ×2 (00:56→10:14)
[2018-01-19] MEDS ORDERED: ACETAMINOPHEN 325 MG TAB PO PRN (00:56)
--- NOTE | 2018-01-19 03:51 | PDGENHP ---
History and Physical - Chief Complaint SOB - History of Present Illness 52 yo M w/ hx of CP, ILD, CHRF, and prior aspiration pneumonia presents with shortness of breath. Patient seen in ED earlier today with cough and hypoxemia. CXR showed possible aspiration but patient was on stable O2 and afebrile so he was discharged with oral antibiotics. Upon returning to his facility, however, he continued to worsen and display increasing respiratory distress. He returned to ED in severe respiratory distress initially requiring BIPAP. By the time of my evaluation patient is stable on 6 L/min O2. He is very fatigued on my evaluation and not providing additional history. History Information - Allergies/Home Medication List Allergies/Adverse Reactions: No Known Allergies Allergy (Verified 01/18/18 23:21) Home Medications: Albuterol [Proventil Neb] 3 ml IH BID 08/08/17 [Last Taken 08/08/17] Divalproex ER [Depakote ER 500 MG (*)] 1,000 mg PO HS 08/08/17 [Last Taken 08/07] Divalproex ER [Depakote ER 500 MG (*)] 500 mg PO DAILY 08/08/17 [Last Taken ] carBAMazepine [TEGretol (*)] 200 mg PO TID 08/08/17 [Last Taken 08/08/17] I have personally reviewed and updated: family history, medical history - Past Medical History Additional medical history: Cerebral palsy with resultant developmental delay, history of 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 PTSD. Seizure disorder. Aspiration pneumonia. Interstitial lung disease with chronic hypoxic respiratory failure, normally on 2 L nasal cannula. Hemorrhoids. Urinary incontinence. Major depressive disorder - Surgical History Reports: no pertinent surgical hx - Family History Additional family history: No venous thromboembolism, no congestive heart failure, a staff member at [facility] recently had the flu and several housemates have also recently been ill - Social History Smoking Status: Former smoker Additional social history: Lives at [facility], has caretakers, resides in wheelchair most of the time Review of Systems Review of Systems: ROS: 10pt was reviewed & negative except for what was stated in HPI & below Physical Exam Physical Exam: Temp Pulse Resp BP Pulse Ox 37.3 C 94 32 H 130/93 H 95 01/19/18 01:31 01/19/18 01:31 01/19/18 01:31 01/19/18 01:31 01/19/18 01:31 O2 (L/minute) 6 Constitutional: uncomfortable, other (Fatigued) Ears, Nose, Mouth, Throat: moist mucous membranes, no oral mucosal ulcers Cardiovascular: regular rate and rhythym, no murmur, rub, or gallop Respiratory: respiratory distress (Mild to moderate), rhonchi (Diffuse) Gastrointestinal: normoactive bowel sounds, soft, non-tender abdomen Skin: warm, normal color Musculoskeletal: other (L sided weakness, contractures) Neurologic: sensation intact bilaterally, weakness (L side) Psychiatric: other (Fatigued, decreased interaction) Lab Data & Imaging Review 01/18/18 20:15 01/18/18 20:15 WBC 13.31 10^3/uL (3.80-9.50) H 01/18/18 20:15 RBC 4.71 10^6/uL (4.40-6.38) 01/18/18 20:15 Hgb 14.9 g/dL (13.7-17.5) 01/18/18 20:15 POC Hgb 16.0 gm/dL (13.7-17.5) 01/18/18 23:08 Hct 47.4 % (40.0-51.0) 01/18/18 20:15 POC Hct 47 % (40-51) 01/18/18 23:08 MCV 100.6 fL (81.5-99.8) H 01/18/18 20:15 MCH 31.6 pg (27.9-34.1) 01/18/18 20:15 MCHC 31.4 g/dL (32.4-36.7) L 01/18/18 20:15 RDW 13.6 % (11.5-15.2) 01/18/18 20:15 Plt Count 103 10^3/uL (150-400) L 01/18/18 20:15 MPV 12.4 fL (8.7-11.7) H 01/18/18 20:15 Neut % (Auto) Not Reported 01/18/18 20:15 Lymph % (Auto) Not Reported 01/18/18 20:15 [place] % (Auto) Not Reported 01/18/18 20:15 Eos % (Auto) Not Reported 01/18/18 20:15 Baso % (Auto) Not Reported 01/18/18 20:15 Nucleat RBC Rel Count Not Reported 01/18/18 20:15 Absolute Neuts (auto) Not Reported 01/18/18 20:15 Absolute Lymphs (auto) Not Reported 01/18/18 20:15 Absolute Monos (auto) Not Reported 01/18/18 20:15 Absolute Eos (auto) Not Reported 01/18/18 20:15 Absolute Basos (auto) Not Reported 01/18/18 20:15 Absolute Nucleated RBC Not Reported 01/18/18 20:15 Immature Gran % Not Reported 01/18/18 20:15 Seg Neutrophils % 66.0 % 01/18/18 20:15 Band Neutrophils % 0 % 01/18/18 20:15 Lymphocytes % 21.0 % 01/18/18 20:15 Monocytes % 13.0 % 01/18/18 20:15 Eosinophils % 0 % 01/18/18 20:15 Basophils % 0 % 01/18/18 20:15 Metamyelocytes % 0 % 01/18/18 20:15 Myelocytes % 0 % 01/18/18 20:15 Promyelocytes % 0 % 01/18/18 20:15 Blast Cells % 0 % 01/18/18 20:15 Immature Gran # Not Reported 01/18/18 20:15 Absolute Seg Neuts 8.78 10^/uL (1.70-6.50) H 01/18/18 20:15 Absolute Band Neuts 0.00 10^3/uL (0.00-0.70) 01/18/18 20:15 Absolute Lymphocytes 2.80 10^3/uL (1.00-3.00) 01/18/18 20:15 Absolute Monocytes 1.73 10^3/uL (0.30-0.80) H 01/18/18 20:15 Absolute Eosinophils 0.00 10^3/uL (0.03-0.40) L 01/18/18 20:15 Absolute Basophils 0.00 10^3/uL (0.02-0.10) L 01/18/18 20:15 Absolute Metamyelocyte 0.00 10^3/mL (0.00-0.00) 01/18/18 20:15 Absolute Myelocytes 0.00 10^3/mL (0.00-0.00) 01/18/18 20:15 Absolute Promyelocytes 0.00 10^3/uL (0.00-0.00) 01/18/18 20:15 Absolute Plasma Cells 0.00 10^3/uL (0.00-0.00) 01/18/18 20:15 Absolute Blast Cells 0.00 10^3/uL (0.00-0.00) 01/18/18 20:15 Plasma Cells % 0 % 01/18/18 20:15 Platelet Estimate DECREASED (ADEQ) L 01/18/18 20:15 Basophilic Stippling 1+ H 01/18/18 20:15 Oval Macrocytes 2+ H 01/18/18 20:15 D-Dimer 0.65 ug/mLFEU (0.00-0.50) H 01/18/18 20:15 Puncture Site NONE GIVEN 01/18/18 23:05 Patient Temperature 37.0 DEGREES 01/18/18 23:05 pCO2 70 mmHg (34-38) H 01/18/18 23:05 pO2 209 mmHg (65-75) H 01/18/18 23:05 Total CO2 36 mEq/L (23-27) H 01/18/18 23:05 ABG pH 7.31 (7.35-7.45) L 01/18/18 23:05 ABG HCO3 34 mEq/L (22-26) H 01/18/18 23:05 ABG O2 Saturation 99 % (92-95) H 01/18/18 23:05 ABG Base Excess 5.2 mEq/L (-2.5-2.5) H 01/18/18 23:05 ABG Lactic Acid 0.7 mmol/L (0.5-1.6) 01/18/18 23:05 VBG Lactic Acid 1.3 mmol/L (0.7-2.1) 01/18/18 23:05 POC Sodium 145 mEq/L (135-145) 01/18/18 23:08 Sodium 145 mEq/L (135-145) 01/18/18 20:15 POC Potassium 4.2 mEq/L (3.3-5.0) 01/18/18 23:08 Potassium 4.3 mEq/L (3.5-5.2) 05/07/18 20:15 POC Chloride 99 mEq/L (97-110) 01/18/18 23:08 Chloride 98 mEq/L (97-110) 01/18/18 20:15 Carbon Dioxide 40 mEq/l (22-31) H 01/18/18 20:15 Anion Gap 7 mEq/L (8-16) L 01/18/18 20:15 POC BUN 20 mg/dL (7-23) 01/18/18 23:08 BUN 21 mg/dL (7-23) 01/18/18 20:15 Creatinine 0.7 mg/dL (0.7-1.3) 01/18/18 20:15 POC Creatinine 0.9 mg/dL (0.7-1.3) 01/18/18 23:08 Estimated GFR > 60 01/18/18 20:15 Glucose 103 mg/dL (70-100) H 01/18/18 20:15 POC Glucose 110 mg/dL (70-100) H 01/18/18 23:08 Calcium 9.3 mg/dL (8.5-10.4) 01/18/18 20:15 Troponin I 0.017 ng/mL (0.000-0.034) 01/18/18 20:15 Imaging Review: Imaging Impressions Chest X-Ray 01/18/18 22:55 Impression: 1. Lines/tubes: None 2. Stable right mid and upper lung consolidation suggesting aspiration. 3. Stable severe interstitial lung disease. 4. Cardiomediastinal silhouette, bones and soft tissues are not significantly changed. Visualized and Interpreted EKG results: Yes EKG Interpretation: Positive for: normal sinsus rhythm, other (Tachycardia) Assessment & Plan Assessment: 52 yo M w/ CP, ILD, CHRF, and chronic aspiration p/w aspiration pneumonia. Plan: 1. Sepsis 2/2 aspiration pneumonia - 4/4 SIRS criteria present on admission; source likely aspiration PNA seen on CXR. Patient failed outpatient treatment and returned with severe respiratory distress. - Admit to SDU for close monitoring - Maintain NPO, COMPUTER NETWORKING INSTRUCTOR eval in the morning - Unasyn for aspiration pneumonia, blood cultures obtained 2. Acute on chronic HRF - Required BIPAP in the ED, now stable on 6 L/min O2 via face mask. Chronically on 2-3 L/min O2 due to ILD. - Acute infectious treatment as above - Methylprednisone 60 mg q6h + scheduled albuterol QID until respiratory status improves noting significant baseline respiratory disease 3. ILD, reactive airway disease - Severe, stable ILD seen on admission CXR. Will treat aggressively initially noting minimal reserve. 4. Hx CP, TBI, seizure d/o - Wheelchair bound with L-sided deficits. Continue home medications. Diet - NPO pending COMPUTER NETWORKING INSTRUCTOR eval Code - Full Ppx - LMWH Dispo - Admit to SDU under inpatient status noting sepsis and severe respiratory distress
[2018-01-19] MEDS: AMPICILLIN/SULBACTAM 3 GM in NS 100 ML IV SCH ×3 (05:02→17:45)
[2018-01-19] MEDS: methylPREDNISolone SOD SUCC 125 MG/2 ML VIAL IVP SCH ×3 (05:05→17:46)
[2018-01-19] MEDS ORDERED: ALBUTEROL 3 ML DEYVIAL IH SCH (06:00)
--- NOTE | 2018-01-19 07:21 | EDPHY ---
H & P Stated Complaint: resp distress Time Seen by Provider: 01/18/18 23:10 HPI/ROS: HPI The patient presents with shortness of breath and hypoxia, he is brought in by ambulance from his assisted living facility. He was seen earlier today and diagnosed with aspiration pneumonia, started on antibiotics and r was discharged and was not in any respiratory distress. Since he has been home he has been more tachypneic than usual. He wears 2 L of nasal cannula at baseline, however when paramedics found him his oxygenation was about 60%. He was started on CPAP and brought in for evaluation. He has been coughing significantly though has not had a fever. REVIEW OF SYSTEMS Constitutional: No fever, no chills. Eyes: No discharge. ENT: No sore throat. Cardiovascular: No chest pain, no palpitations. Respiratory: See HPI Gastrointestinal: No abdominal pain, no vomiting. Genitourinary: No hematuria. Musculoskeletal: No back pain. Skin: No rashes. Neurological: No headache. 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 PHYSICAL General Appearance: Alert, in obvious respiratory distress Eyes: Pupils equal and round no pallor or injection ENT, Mouth: Mucous membranes moist Respiratory: There is tachypnea, retractions, patient currently on CPAP, decreased breath sounds on the right Cardiovascular: Regular rate and rhythm Gastrointestinal: Abdomen is soft and non-tender, no masses, bowel sounds normal Neurological: A&O, moves all extremities Skin: Warm and dry, no rashes Musculoskeletal: Neck is supple non tender Extremities: symmetrical, full range of motion Psychiatric: Patient is oriented X 3, there is no agitation Source: Patient, EMS Exam Limitations: Clinical condition - Personal History Current Tetanus/Diphtheria Vaccine: Yes Tetanus Vaccine Date: 2008 - Medical/Surgical History Hx Asthma: No Hx Chronic Respiratory Disease: Yes Hx Diabetes: Yes Hx Cardiac Disease: No Hx Renal Disease: No Hx Cirrhosis: No Hx Alcoholism: No Hx HIV/AIDS: No Hx Splenectomy or Spleen Trauma: No Other PMH: CP, DYSPHAGIA, FATIGUE, SZ, HEMOROIDS, ARDS, PULMONARY FIBROSIS, INTERSTITIAL LUNG DX, DEPRESSION,Mental Retardation, PTSTD, brain injury - Social History Smoking Status: Former smoker Constitutional: Initial Vital Signs Temperature (C) 38.3 C 01/18/18 23:10 Heart Rate 104 H 01/18/18 23:10 Respiratory Rate 38 H 01/18/18 23:10 Blood Pressure 110/83 H 01/18/18 23:10 O2 Sat (%) 104 H 01/18/18 23:10 O2 Delivery Mode Oxymask O2 (L/minute) 6 Allergies/Adverse Reactions: No Known Allergies Allergy (Verified 01/18/18 23:21) Home Medications: Medication Instructions Recorded Tamsulosin HCl [Flomax 0.4 MG (*)] 0.4 mg PO HS #0 cap 02/12/15 Calcium Citrate W/Vit D [Citracal 2 each PO BID #60 tab 03/06/15 + D] Citalopram Hydrobromide [Celexa] 40 mg PO DAILY #30 tablet 03/06/15 Furosemide [Lasix 20 MG (*)] 10 mg PO DAILY #14 tab 03/06/15 Gabapentin [Neurontin 300 MG (*)] 300 mg PO QID #120 cap 03/06/15 Trolamine Salicylate/Aloe Vera 1 anil TP BID #30 cream.gm. 03/06/15 [Aspercreme 10% Cream] guaiFENesin [Mucinex 600 MG (*)] 600 mg PO BID #60 tab.er 03/06/15 Albuterol [Proventil Neb] 3 ml IH BID 08/08/17 Divalproex ER [Depakote ER 500 MG 1,000 mg PO HS 08/08/17 (*)] Divalproex ER [Depakote ER 500 MG 500 mg PO DAILY 08/08/17 (*)] carBAMazepine [TEGretol (*)] 200 mg PO TID 08/08/17 Amoxicillin/Clavulanate Pot 875 mg PO BID #20 tab 01/18/18 [Augmentin 875 mg tablet] Herbals/Supplements -Info Only 1 ea PO DAILY 01/19/18 Medical Decision Making - Diagnostics EKG Interpretation: EKG: Complete interpretation has been separately recorded in the [facility] archive. Summary impression: Normal sinus rhythm Imaging Results: Chest x-ray single view demonstrates persistent right upper and middle lobe infiltrates with interstitial lung disease, discussed with the radiologist Dr. Ross. Imaging: Discussed imaging studies w/ call or contact centre manager Radiologist, I viewed and interpreted images myself Differential Diagnosis: 52-year-old man brought in by ambulance from assisted living in respiratory distress. Seen earlier today in the emergency department and diagnosed with an aspiration pneumonia, started on antibiotics. Has declined since he has been at home. Initial sats in the 60s according to EMS, started on CPAP with improvement in his symptoms. Here, he is satting in the 80s on CPAP. I met the paramedics at the bedside and obtained their report. The patient was continued on CPAP and started with nebulized albuterol in-line. IV line was established, patient was given Solu-Medrol, magnesium. Basic labs were obtained. Chest x-ray demonstrated right-sided likely aspiration pneumonia. He was given Zosyn. After several hours we were able to transfer him to a face mask. He still is slightly tachypneic though seems to have improved. We plan to admit him to the hospitalist. I have discussed the case with Dr. Corrigan. D-dimer was slightly elevated, however just mildly. Given his x-ray results and current presentation, I feel his symptoms are likely related to his aspiration pneumonia. However, if he does not improve within the next few days , CT scan of the chest could be obtained. Critical Care Time: CRITICAL CARE Critical care time spent by me, Dr. Quevedo, exclusively with this patient was 45 minutes, exclusive of PA time and exclusive of procedures. The organ system at risk was respiratory and I gave BiPAP, continuous nebs, steroids, transfer the patient to the step-down unit to prevent worsening of the patients condition. - Data Points Laboratory Results: Laboratory Results 01/18/18 20:15 01/18/18 20:15 Medications Given: Albuterol (Proventil Neb) 3 ml IH QID KELLEY Stop: 07/18/18 11:59 Last Admin: 01/20/18 05:14 Dose: 3 ml Calcium/Vitamin D (Calcium Carb W/Vit D) 1,000 mg PO BID KELLEY Stop: 07/18/18 20:59 Last Admin: 01/19/18 21:49 Dose: 1,000 mg Carbamazepine (Tegretol) 200 mg PO TID KELLEY Stop: 07/18/18 08:59 Last Admin: 01/19/18 21:50 Dose: 200 mg Divalproex Sodium (Depakote Er) 500 mg PO DAILY KELLEY Stop: 07/18/18 08:59 Last Admin: 01/19/18 09:59 Dose: 500 mg Divalproex Sodium (Depakote Er) 1,000 mg PO HS KELLEY Stop: 07/18/18 20:59 Last Admin: 01/19/18 21:50 Dose: 1,000 mg Enoxaparin Sodium (Lovenox) 40 mg SC DAILY KELLEY Stop: 07/18/18 08:59 Last Admin: 01/19/18 10:00 Dose: 40 mg Gabapentin (Neurontin) 300 mg PO QID KELLEY Stop: 07/18/18 11:59 Last Admin: 01/20/18 06:08 Dose: 300 mg Guaifenesin (Mucinex) 1,200 mg PO BID KELLEY Stop: 07/18/18 08:59 Last Admin: 01/19/18 21:50 Dose: 1,200 mg Ampicillin Sodium/Sulbactam (Sodium 3 gm/ Sodium Chloride) 100 mls @ 200 mls/ hr IV Q6HRS KELLEY PRN Reason: Protocol Stop: 02/18/18 05:59 Last Admin: 01/20/18 06:05 Dose: 100 mls Dextrose/Sodium Chloride (D5w 1/2 Ns) 1,000 mls @ 100 mls/hr IV CONT KELLEY Stop: 07/18/18 11:14 Last Admin: 01/20/18 06:15 Dose: 1,000 mls Methylprednisolone Sodium Succinate (Solu-Medrol) 60 mg IVP Q6HRS KELLEY Stop: 07/18/18 05:59 Last Admin: 01/20/18 06:08 Dose: 60 mg Senna (Senokot) 1 tab PO BID KELLEY Stop: 07/18/18 08:59 Last Admin: 01/19/18 21:49 Dose: 1 tab Tamsulosin HCl (Flomax) 0.4 mg PO HS KELLEY Stop: 07/18/18 20:59 Last Admin: 01/19/18 21:49 Dose: 0.4 mg Trolamine Salicylate (Aspercreme) 1 anil TP BID KELLEY Stop: 07/18/18 20:59 Last Admin: 01/19/18 21:50 Dose: 1 anil Discontinued Medications Albuterol (Proventil Neb) 10 ml IH CONT ONE Stop: 01/18/18 22:59 Last Admin: 01/18/18 23:26 Dose: 10 ml Albuterol (Proventil Neb) 15 ml IH EDNOW ONE Stop: 01/18/18 23:13 Last Admin: 01/18/18 23:23 Dose: 15 ml Albuterol (Proventil Neb) 3 ml IH QID KELLEY Stop: 07/18/18 05:59 Last Admin: 01/19/18 05:48 Dose: 3 ml Albuterol/Ipratropium (Duoneb) 3 ml IH EDNOW ONE Stop: 01/18/18 23:13 Last Admin: 01/18/18 23:26 Dose: 3 ml Magnesium Sulfate (Magnesium Sulf 2 Gm (Premix)) 50 mls @ 50 mls/hr IV EDNOW ONE Stop: 01/18/18 23:57 Last Admin: 01/18/18 23:04 Dose: 50 mls Magnesium Sulfate (Magnesium Sulf 2 Gm (Premix)) 50 mls @ 50 mls/hr IV EDNOW ONE Stop: 01/18/18 23:57 Last Admin: 01/18/18 23:50 Dose: Not Given Piperacillin/Tazobactam/Dextrose (Zosyn 3.375 Gm (Premix)) 50 mls @ 100 mls/hr IV EDNOW ONE PRN Reason: Protocol Stop: 01/18/18 23:36 Last Admin: 01/18/18 23:50 Dose: 50 mls Methylprednisolone Sodium Succinate (Solu-Medrol) 125 mg IVP EDNOW ONE Stop: 01/18/18 22:59 Last Admin: 01/18/18 23:06 Dose: 125 mg Departure - Departure Disposition: [facility] Clinical Impression: Hypoxemia, Cough, Interstitial lung disease Aspiration pneumonia Qualifiers: Aspiration pneumonia type: unspecified Laterality: right Lung location: unspecified part of lung Qualified Code(s): J69.0 - Pneumonitis due to inhalation of food and vomit Condition: Critical
[2018-01-19 07:42] LABS: PLATELET COUNT 88 10^3/uL (150-400)
[2018-01-19] MEDS ORDERED: TROLAMINE SALICYLATE TP SCH (09:00)
[2018-01-19] MEDS ORDERED: NON-FORMULARY NEW DRUG (Citalopram Hydrobromide [Celexa] 40 MG) PO SCH (09:00)
[2018-01-19] MEDS ORDERED: CALCIUM CITRATE PO SCH (09:00)
[2018-01-19] MEDS ORDERED: VIT D PO SCH (09:00)
[2018-01-19] MEDS ORDERED: ALOE VERA TP SCH (09:00)
--- NOTE | 2018-01-19 09:04 | GCON ---
[f rep st] CONSULTATION PLAN EXAMINER CONSULTATION REASON FOR ADMISSION: Acute hypercarbic respiratory failure. HISTORY: The patient is a 52-year-old white male with extensive past medical history including cereb ral palsy, traumatic brain injury, seizure disorder, aspiration pneumonia, with interstiti al lung disease. He is on chronic supplemental oxygen. He presents to the emergency room with cough and decreased oxygen levels. He was initially seen in the emergency room and then subsequently disc harged. He returned in severe respiratory distress, this requiring BiPAP, and he was subsequently ad mitted to the step-down unit. Currently, patient is somewhat somnolent, but appears to be resting co mfortably on CPAP. All history is gleaned from the medical record. PAST MEDICAL HISTORY: Again, significant for cerebral palsy, depression, urinary incontinence, hemor rhoids, traumatic brain injury, left-sided hemiparesis, PTSD, seizure disorder, aspiration, pneumonia , interstitial lung disease, and chronic respiratory failure. ALLERGIES: No known allergies to medications. FAMILY HISTORY: Noncontributory. SOCIAL HISTORY: Former smoker. He currently resides at the [facility]. REVIEW OF SYSTEMS: A 10-point review of systems was performed, was negative except for what is state d in the HPI. PHYSICAL EXAM: VITAL SIGNS: Blood pressure is 113/66, pulse 75, respirations 22, temperature is 36. 9, oxygen saturation 92% on 40% BiPAP. GENERAL: He is a well-developed 52-year-old male, who is elana nolent on BiPAP. HEENT: Eyes are PERRLA, EOMI. Throat exam is deferred. NECK: Supple. No cervic al adenopathy. He has a scar from previous tracheostomy. HEART: Regular rate and rhythm with a 2/6 systolic murmur at the left sternal border without radiation. LUNGS: Diminished breath sounds. A few bibasilar crackles, right greater the left. ABDOMEN: Soft, nontender. Bowel sounds are present . EXTREMITIES: No clubbing, cyanosis, or edema. LABORATORIES: White count is 9.8, hemoglobin 12, hematocrit 41, platelet count is 88. Sodium 148, p otassium 4.5, chloride 102, CO2 is 37, BUN 21, creatinine 0.6, glucose is 146. Arterial blood gas, p H 7.32, pCO2 is 72, PO2 of 61, bicarb 30, oxygen saturation is 88%. Chest x-ray shows severe initial lung disease. There is some evidence of increased consolidation on the right. IMPRESSION: 1. Probable aspiration pneumonia. 2. Hypercarbic respiratory failure. 3. History of chronic respiratory failure. 4. Cerebral palsy. 5. Post-traumatic stress disorder. 6. Depression. RECOMMENDATIONS: 1. Agree with BiPAP. 2. Recheck ABG to assess efficacy. 3. Agree with current antibiotic coverage. 4. Agree with current steroids consisting of Solu-Medrol 60 mg q.6 hours. 5. DVT and PE prophylaxis. 6. Stress ulcer prophylaxis. 7. Physical Therapy and Occupational Therapy. /[id number]/MODL
--- NOTE | 2018-01-19 09:38 | ASMTCMCOM ---
CM Note CM Note Notes: 52yr old male admitted for Respiratory distress-sepsis; Hypoxia, PNA. He has a Hx of Interstitial lung dis, CP-DD, ILD, CHRF, TBI-L sided weakness, Dysphasia, Sz diso, urinary incontinence, PTSD, Major Depressive Diso. Patient has [employer] caregivers, primarily wheelchair bound. His uncle Govind is his medical decision maker, . CM to follow for discharge needs. Date Signed: 01/19/2018 09:38 AM Electronically Signed By:Leigh Ann Aguilar LCSW
[2018-01-19] MEDS: guaiFENesin 600 MG TAB.ER PO SCH ×2 (09:59→21:50)
[2018-01-19] MEDS: DIVALPROEX ER 500 MG TAB PO SCH ×2 (09:59→21:50)
[2018-01-19] MEDS: SENNOSIDES 1 TAB PO SCH ×2 (09:59→21:49)
[2018-01-19] MEDS: ENOXAPARIN 40 MG/0.4 ML SYR SC SCH (10:00)
[2018-01-19] MEDS: CARBAMAZEPINE 100 MG CHEWABLE TAB PO SCH ×3 (10:00→21:50)
[2018-01-19] MEDS: D5W 1/2 NS 1,000 ML IV SCH (11:29)
[2018-01-19] MEDS: ALBUTEROL 3 ML DEYVIAL IH SCH ×3 (11:37→21:33)
[2018-01-19] MEDS: GABAPENTIN 300 MG CAP PO SCH ×3 (12:44→21:50)
[2018-01-19] MEDS ORDERED: guaiFENesin/CODEINE PHOS 10 ML UDCUP PO PRN (18:54)
[2018-01-19] MEDS ORDERED: BENZONATATE 100 MG CAP PO PRN (18:54)
--- NOTE | 2018-01-19 18:54 | HOSPPROG ---
Hospitalist Progress Note Assessment/Plan: 35 min of critical care time spent with this patient at bedside, coordinating with Dr. Shelby on team rounds, specifically addressing his acute on chronic hypercapnic respiratory failure secondary to acute recurrent aspiration pneumonia and acute reactive airway exacerbation, rendering him critically ill with high risk of worsening morbidity and/or mortality, addressing the following issues: -acute on chronic hypercapnic respiratory failure as evidenced by PaO2 of 72 with notable respiratory acidosis and pH 7.31 with objective tachypnea and respiratory rate greater than 30, visible respiratory distress, most likely secondary to aspiration pneumonia and acute reactive airway exacerbation in the setting of underlying interstitial lung disease which chronically requires 2-3 L nasal cannula, and he required BiPAP therapy this morning -patient has been weaned from BiPAP therapy and is currently on high-flow face mask oxygen -his acute reactive airway exacerbation as evidenced by bilateral bronchial breath sounds with faint expiratory wheeze, patient has no smoking history or history of COPD, likely triggered by aspiration pneumonia, continue scheduled IV steroids, continue scheduled albuterol nebulizers q.6 hours, discussed with respiratory therapy -sepsis evidenced by autonomic dysregulation in the setting of infection and end -organ failure notably respiratory failure, status post IV fluids and empiric IV antibiotics, continue to monitor white blood cell count, fever curve, respiratory failure -acute aspiration pneumonia present on admission, evidenced by right middle lobe and right upper lobe airspace disease on chest x-ray, personally interpreted with fever and leukocytosis, requiring ongoing use in therapy -physical exam demonstrates inspiratory crackles bilaterally with more pronounced inspiratory rhonchi on the right, expiratory bronchial breath sounds bilaterally with faint expiratory wheeze, alert awake oriented x3, with regular heart rhythm, somewhat diaphoretic appearance, no lower extremity edema -adjusted IV fluids to D5 half normal saline, continue while speech works to optimize his oral intake -continue Unasyn, continue scheduled steroids, continue scheduled nebs -engaged in goals of care discussions and discussed the patient's recurrent aspiration with him and encouraged him to engage in palliative conversations -palliative consultation ordered, patient has informed me that he would want to continue being hospitalized for this recurrent issue, but he does demonstrate evidence of limited understanding and cognitive capacity secondary to his cerebral palsy and previous traumatic brain injury, recommend our palliative services work with the patient and his support network so that he is better able to understand his anticipated trajectory which is recurrent aspiration events -speech therapy will continue working with the patient to optimize his dietary recommendations Objective: Vital Signs Temp Pulse Resp BP Pulse Ox 36.7 C 78 24 H 116/75 96 01/19/18 11:37 01/19/18 15:33 01/19/18 15:33 01/19/18 15:33 01/19/18 15:33 Laboratory Results 01/19/18 05:35 01/19/18 05:35 01/18/18 01/19/18 01/20/18 05:59 05:59 05:59 Intake Total 125 812 Output Total 225 Balance 125 587 ICD10 Worksheet Patient Problems: Problems Problem Status Onset Hypoxemia Acute Cough Acute Aspiration pneumonia Acute Interstitial lung disease Acute
[2018-01-19] MEDS: TAMSULOSIN HCL 0.4 MG CAP PO SCH (21:49)
[2018-01-19] MEDS: CALCIUM CARB W/VIT D 500 MG TAB PO SCH (21:49)
[2018-01-19] MEDS: TROLAMINE SALICYLATE 85 GM CRTUBE TP SCH (21:50)
[2018-01-20] MEDS: AMPICILLIN/SULBACTAM 3 GM in NS 100 ML IV SCH ×5 (01:00→23:12)
[2018-01-20] MEDS: methylPREDNISolone SOD SUCC 125 MG/2 ML VIAL IVP SCH ×5 (01:00→23:11)
[2018-01-20] MEDS: ALBUTEROL 3 ML DEYVIAL IH SCH ×4 (05:14→21:28)
[2018-01-20] MEDS: GABAPENTIN 300 MG CAP PO SCH ×4 (06:08→20:44)
[2018-01-20] MEDS: D5W 1/2 NS 1,000 ML IV SCH ×2 (06:15→15:59)
--- NOTE | 2018-01-20 08:58 | PDINTPN ---
Transcription Coordinator Progress Note Assessment/Plan: Assessment/plan: * Acute respiratory failure-on BiPAP last night but off this morning. Markedly improved this morning -will wean FiO2 as tolerated * Aspiration pneumonia- -will continue current antibiotics * Cerebral palsy * History of traumatic brain injury * Severe interstitial lung disease-unclear etiology. Apparently no workup has been performed. * Seizure disorder-stable * Left-sided asad paresis * Nutrition-adequate * PT/OT * Stress ulcer prophylaxis * VTE prophylaxis * Disposition-may be stable for the floor soon Subjective: Resting comfortably in bed. Feels better this morning. Breathing easier. Objective: Vital Signs Temp Pulse Resp BP Pulse Ox 36.8 C 61 16 119/61 98 01/20/18 04:00 01/20/18 05:14 01/20/18 05:14 01/20/18 04:00 01/20/18 05:14 Laboratory Results 01/20/18 08:05 01/20/18 06:00 01/19/18 01/20/18 01/21/18 05:59 05:59 05:59 Intake Total 125 2019.8 Output Total 425 Balance 125 1594.8 - Time Spent With Patient Time Spent With Patient: 35 min of time spent with patient, over 1/2 involved with coordination of care or counseling. Physical Exam - Physical Exam General Appearance: alert, no apparent distress EENT: PERRL/EOMI, normal ENT inspection Respiratory: crackles (Bibasilar), rhonchi (Scattered), No respiratory distress , No accessory muscle use Cardiac/Chest: normal peripheral pulses, regular rate, rhythm Peripheral Pulses: 2+: carotid (R), carotid (L), femoral (R), femoral (L), dorsalis-pedis (R), dorsalis-pedis (L) Abdomen: normal bowel sounds, non-tender, soft Male Genitalia: deferred Rectal: deferred Skin: normal color, warm/dry Extremities: other (Left asad paresis) Neuro/Psych: alert, No oriented x 3 ICD10 Worksheet Patient Problems: Problems Problem Status Onset Aspiration pneumonia Acute Cough Acute Hypoxemia Acute Interstitial lung disease Acute
[2018-01-20] MEDS ORDERED: Herbals/Supplements -Info Only PO SCH (09:00)
[2018-01-20] MEDS: CARBAMAZEPINE 100 MG CHEWABLE TAB PO SCH ×3 (09:28→21:09)
[2018-01-20] MEDS: CITALOPRAM 20 MG TAB PO SCH (09:28)
[2018-01-20] MEDS: DIVALPROEX ER 500 MG TAB PO SCH ×2 (09:29→20:42)
[2018-01-20] MEDS: SENNOSIDES 1 TAB PO SCH ×2 (09:29→20:44)
[2018-01-20] MEDS: CALCIUM CARB W/VIT D 500 MG TAB PO SCH ×2 (09:29→20:38)
[2018-01-20] MEDS: guaiFENesin 600 MG TAB.ER PO SCH ×2 (09:29→20:43)
--- NOTE | 2018-01-20 09:31 | HOSPPROG ---
Hospitalist Progress Note Assessment/Plan: Acute on chronic hypoxic and hypercapnic respiratory failure - H/O ILD, on 2-3 LPM baseline. PaO2 of 72-->65. Initially required bipap, now on 4 LPM. Acute component secondary to aspiration pneumonia and acute RAD exacerbation. -cont IV steroids, nebs, atbx -cont to wean O2 as able -speech eval Sepsis 2/2 aspiration pna -cont Unasyn -send sputum Cx, BCx's pending -follow Cx data Hypernatremia - change to D5 1/2 NS, follow Thrombocytopenia - possibly 2/2 sepsis Cerebral palsy with DD H/O TBI with left hemiparesis and dysphagia -speech / swallow eval, on modified diet Seizure disorder - cont depakote, tegretol -check levels Dispo - cont inpt, palliative care consult planned Subjective: Pt feels a bit better this am, breathing is improved. Still wheezing a bit. Denies CP. No fevers. Weak cough. Taking dysphagia diet. Objective: Vital Signs Temp Pulse Resp BP Pulse Ox 36.9 C 62 22 H 115/73 98 01/20/18 08:00 01/20/18 08:00 01/20/18 08:00 01/20/18 08:00 01/20/18 08:00 Laboratory Results 01/20/18 08:05 01/20/18 06:00 01/19/18 01/20/18 01/21/18 05:59 05:59 05:59 Intake Total 125 2019.8 Output Total 425 Balance 125 1594.8 - Physical Exam Constitutional: no apparent distress Eyes: PERRL Ears, Nose, Mouth, Throat: moist mucous membranes Cardiovascular: regular rate and rhythym Respiratory: no respiratory distress, reduced air movement, expiratory wheeze, bronchial breath sounds Gastrointestinal: normoactive bowel sounds, soft, non-tender abdomen Skin: warm Musculoskeletal: full muscle strength Neurologic: AAOx3 Psychiatric: interacting appropriately ICD10 Worksheet Patient Problems: Problems Problem Status Onset Aspiration pneumonia Acute Cough Acute Hypoxemia Acute Interstitial lung disease Acute
[2018-01-20] MEDS: TROLAMINE SALICYLATE 85 GM CRTUBE TP SCH ×2 (10:45→20:44)
[2018-01-20] MEDS ORDERED: LORazepam 2 MG/ML INJ IVP PRN ×2 (11:00→11:03)
--- NOTE | 2018-01-20 12:17 | PDMN ---
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
[2018-01-20] MEDS: TAMSULOSIN HCL 0.4 MG CAP PO SCH (20:43)
[2018-01-21] MEDS: ALBUTEROL 3 ML DEYVIAL IH SCH ×4 (05:04→21:02)
[2018-01-21] MEDS: AMPICILLIN/SULBACTAM 3 GM in NS 100 ML IV SCH ×3 (05:06→17:54)
[2018-01-21] MEDS: methylPREDNISolone SOD SUCC 125 MG/2 ML VIAL IVP SCH ×3 (05:06→17:54)
[2018-01-21] MEDS: GABAPENTIN 300 MG CAP PO SCH ×4 (05:07→21:38)
[2018-01-21] MEDS: D5W 1/2 NS 1,000 ML IV SCH (06:47)
--- NOTE | 2018-01-21 08:52 | PDINTPN ---
Pack Train Driver Progress Note Assessment/Plan: Assessment/plan: * Acute respiratory failure-markedly improved. Now on 3 L. -will wean FiO2 as tolerated * Aspiration pneumonia- -will continue current antibiotics * Cerebral palsy * History of traumatic brain injury * Severe interstitial lung disease-unclear etiology. Apparently no workup has been performed. * Seizure disorder-stable * Left-sided asad paresis * Hypernatremia-mild * Nutrition-adequate * PT/OT * Stress ulcer prophylaxis * VTE prophylaxis * Disposition-transfer to medical surgical floor today Subjective: Sitting up in working with physical therapy. Breathing easily. No current complaints. Objective: Vital Signs Temp Pulse Resp BP Pulse Ox 36.9 C 64 22 H 96/51 L 94 01/21/18 08:00 01/21/18 08:00 01/21/18 08:00 01/21/18 08:00 01/21/18 08:00 Microbiology 01/21/18 05:15 - Final Sputum, Expectorated Sputum Culture - Final Laboratory Results 01/21/18 05:50 01/21/18 05:50 01/20/18 01/21/18 01/22/18 05:59 05:59 05:59 Intake Total 2019.8 2343 Output Total 425 530 Balance 1594.8 1813 - Time Spent With Patient Time Spent With Patient: 25 min of time spent with patient, over 1/2 involved with coordination of care or counseling Physical Exam - Physical Exam General Appearance: alert, no apparent distress EENT: PERRL/EOMI Neck: non-tender, full range of motion, supple, normal inspection Respiratory: crackles (Bibasilar), No respiratory distress, No wheezing Cardiac/Chest: normal peripheral pulses, regular rate, rhythm, systolic murmur Peripheral Pulses: 2+: carotid (R), carotid (L), femoral (R), femoral (L), dorsalis-pedis (R), dorsalis-pedis (L) Abdomen: normal bowel sounds, non-tender, soft Male Genitalia: deferred Rectal: deferred Skin: normal color, warm/dry Extremities: normal range of motion, non-tender, normal inspection, normal capillary refill Neuro/Psych: no motor/sensory deficits, alert, normal mood/affect, oriented x 3 ICD10 Worksheet Patient Problems: Problems Problem Status Onset Aspiration pneumonia Acute Cough Acute Hypoxemia Acute Interstitial lung disease Acute
--- NOTE | 2018-01-21 09:07 | GCON ---
[f rep st] CONSULTATION NEUROLOGIC CONSULTATION HISTORY: The patient is a 52-year-old gentleman who I am asked to see in neurologic consultation by Dr. Karis Pineda for history of seizure disorder. He came to the emergency department 2 days ago. He was presenting with a complaint of shortness of breath and came in from assisted living by ambulan susi. He was diagnosed with aspiration pneumonia and put on antibiotics and was discharged in not any acute distress but then got acutely worse and came back and was put on CPAP. No clinical seizures we re being described at that point. He was admitted to the ICU and was seen by Dr. Shelby 2 days ago f or initial consultation. He was noted to be somnolent at that point and was comfortable on CPAP. He was noted to have hypercarbic respiratory failure on top of chronic respiratory failure and was bein g treated with BiPAP. He was seen yesterday by Dr. Karis Pineda for hospitalist followup. There have been questions of wh ether he might have had a partial seizure phenomenon, but no generalized convulsion. The patient is followed by Dr. Luis Del Angel in our clinic and has a known focal seizure disorder, on anticonvulsant th era and generally stable. His last office visit with Dr. Del Angel was August 03. At that point, he w as on Depakote 500 and 1000 mg daily with carbamazepine 200 mg 3 times a day and gabapentin 300 mg 4 times daily. It was decided not to push anticonvulsant therapy at that point any higher because thes e are partial seizures without altered awareness that mainly involve stiffening of his left arm. 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 FAMILY HISTORY: Noncontributory. SOCIAL HISTORY: Former smoker. He resides with [facility] and has caregivers and is usually in his whe elchair. MEDICATIONS: He is on antibiotic now, albuterol, Tegretol 200 mg 3 times a day, Celexa 40 mg daily, valproic acid extended release a total of 1500 mg per day, gabapentin 300 mg 4 times a day. ALLERGIES: No known drug allergies. PHYSICAL EXAM: VITAL SIGNS: Blood pressure is 96/51, pulse 64, respirations 22 on a face mask, temp erature 36.9. GENERAL: He is well developed, lying in the bed in no acute distress. EYES: Clear. NECK: Supple with no bruits or masses. CARDIAC: Regular rate and rhythm. NEUROLOGIC: He is leth argic, but arousable and opens his eyes and can answer basic questions, is not fully oriented and vazquez s not know all the details of exactly what happened, but says he does not have any pain. No awarenes s of new numbness or weakness. He has a spastic left hemiparesis with mild dysarthria. Reflexes hyp eractive. LABORATORY STUDIES: Currently, white count 9000. His blood levels of anticonvulsant: Valproic acid 68.7, carbamazepine 7.1. Electrolytes: He has elevated bicarbonate consistent with his known chron ic hypercarbic respiratory insufficiency. His most recent blood gas on the was pH 7.35, CO2 of 6 5, bicarbonate 35. IMPRESSION: The total unit time of 50 minutes, with greater than 50% counseling and coordination of care. This gentleman has no evidence of ongoing seizure activity currently. He has a history of sim ple partial seizure phenomena, which occur intermittently and would not warrant any change in medicin e at this time. He seems to be getting back to his baseline as he is recovering from this respirator y infection. I would continue the current dosing of medicine, and he should follow up with Dr. Bean allen his usual schedule after he is discharged from the hospital. /[id number]/MODL
[2018-01-21] MEDS: CARBAMAZEPINE 100 MG CHEWABLE TAB PO SCH ×3 (09:18→21:37)
[2018-01-21] MEDS: DIVALPROEX ER 500 MG TAB PO SCH ×2 (09:19→21:38)
[2018-01-21] MEDS: CALCIUM CARB W/VIT D 500 MG TAB PO SCH ×2 (09:19→21:38)
[2018-01-21] MEDS: SENNOSIDES 1 TAB PO SCH ×2 (09:19→21:39)
[2018-01-21] MEDS: CITALOPRAM 20 MG TAB PO SCH (09:19)
[2018-01-21] MEDS: guaiFENesin 600 MG TAB.ER PO SCH ×2 (09:19→21:37)
[2018-01-21] MEDS: TROLAMINE SALICYLATE 85 GM CRTUBE TP SCH ×2 (09:20→21:00)
--- NOTE | 2018-01-21 09:32 | HOSPPROG ---
Hospitalist Progress Note Assessment/Plan: Acute on chronic hypoxic and hypercapnic respiratory failure - H/O ILD, on 2-3 LPM baseline. PaO2 of 72-->65. Initially required bipap, now on 4 LPM. Acute component secondary to aspiration pneumonia and acute RAD exacerbation. -cont IV steroids, nebs, atbx -cont to wean O2 as able -cont speech eval -send resp viral panel Sepsis 10/16 aspiration pna -cont Unasyn -send sputum Cx, BCx's pending -follow Cx data Hypernatremia - Na still elevated on 09/15 NS, he is developing a free water deficit, unable to take thin liquids -change to D5W at 100/hr and repeat BMP this afternoon Thrombocytopenia - chronic, stable, follow Cerebral palsy with DD H/O TBI with left hemiparesis and dysphagia -speech / swallow eval, on modified diet Seizure disorder - had small focal seizure yesterday. Discussed with neurology -cont depakote, tegretol -prn ativan for seizure Dispo - cont inpt, transfer to med/surg palliative care consult planned Subjective: Pt doing ok, still a bit SOB, coughing and wheezing. No fevers. No CP. Unable to take thin liquids due to aspiration risk. Objective: Vital Signs Temp Pulse Resp BP Pulse Ox 36.9 C 64 22 H 96/51 L 94 01/21/18 08:00 01/21/18 08:00 01/21/18 08:00 01/21/18 08:00 01/21/18 08:00 Microbiology 01/21/18 05:15 - Final Sputum, Expectorated Sputum Culture - Final Laboratory Results 01/21/18 05:50 01/21/18 05:50 01/20/18 01/21/18 01/22/18 05:59 05:59 05:59 Intake Total 2019.8 2343 Output Total 425 530 Balance 1594.8 1813 - Physical Exam Constitutional: no apparent distress Eyes: PERRL Ears, Nose, Mouth, Throat: moist mucous membranes Cardiovascular: regular rate and rhythym Respiratory: no respiratory distress, reduced air movement, expiratory wheeze Gastrointestinal: normoactive bowel sounds, soft, non-tender abdomen Skin: warm Musculoskeletal: full muscle strength Neurologic: AAOx3 Psychiatric: interacting appropriately ICD10 Worksheet Patient Problems: Problems Problem Status Onset Aspiration pneumonia Acute Cough Acute Hypoxemia Acute Interstitial lung disease Acute
[2018-01-21] MEDS: D5W 1,000 ML IV SCH ×2 (09:51→23:00)
--- NOTE | 2018-01-21 12:52 | ASMTCMCOM ---
CM Note CM Note Notes: Spoke with Roland regarding the Palliative Care consult he had with patient and family. Patient's MDPOA, Uncle Govind has been managing patient's care for some time. Roland states patient expressed he is happy with his life and wants to have all measures taken to preserve it. Patient will most likely return to [facility]. Nestor will manage the palliative care coordination.CM will continue to follow for any other needs that may arise. Date Signed: 01/21/2018 12:52 PM Electronically Signed By:Macey Soler LCSW
[2018-01-21] MEDS: TAMSULOSIN HCL 0.4 MG CAP PO SCH (21:38)
[2018-01-22] MEDS: methylPREDNISolone SOD SUCC 125 MG/2 ML VIAL IVP SCH ×4 (05:08→20:59)
[2018-01-22] MEDS: AMPICILLIN/SULBACTAM 3 GM in NS 100 ML IV SCH ×5 (05:09→23:16)
[2018-01-22] MEDS: ALBUTEROL 3 ML DEYVIAL IH SCH ×4 (05:15→20:39)
[2018-01-22] MEDS: GABAPENTIN 300 MG CAP PO SCH ×4 (07:14→20:59)
[2018-01-22] MEDS: CALCIUM CARB W/VIT D 500 MG TAB PO SCH ×2 (08:28→20:59)
[2018-01-22] MEDS: CARBAMAZEPINE 100 MG CHEWABLE TAB PO SCH ×3 (08:28→21:00)
[2018-01-22] MEDS: guaiFENesin 600 MG TAB.ER PO SCH ×2 (08:28→20:59)
[2018-01-22] MEDS: SENNOSIDES 1 TAB PO SCH ×2 (08:28→20:59)
[2018-01-22] MEDS: DIVALPROEX ER 500 MG TAB PO SCH ×2 (08:28→21:00)
[2018-01-22] MEDS: CITALOPRAM 20 MG TAB PO SCH (08:28)
[2018-01-22] MEDS: TROLAMINE SALICYLATE 85 GM CRTUBE TP SCH ×2 (08:29→21:00)
--- NOTE | 2018-01-22 09:07 | HOSPPROG ---
Hospitalist Progress Note Assessment/Plan: Acute on chronic hypoxic and hypercapnic respiratory failure - H/O ILD, on 2-3 LPM baseline. PaO2 of 72-->65. Initially required bipap, now on 4 LPM. Acute component secondary to aspiration pneumonia, viral URI (+rhinovirus) and acute RAD exacerbation. -repeat ABG now, assess pCO2 given decreased mentation -cont steroids, nebs, atbx -cont to wean O2 as able Sepsis 2/2 aspiration pna - sputum Cx, BCx's ngtd. Concern for ongoing aspiration -cont Unasyn, likely transition to Unasyn at d/c -cont speech / swallow eval Acute encephalopathy - query if related to CO2 retention -check ABG H/O TBI with left hemiparesis and dysphagia -speech / swallow eval, on modified diet, no thin liquids which makes hydration a challenge Hypernatremia - Na normalized with replacing FWD with D5W -change to 1/2 NS Thrombocytopenia - chronic, stable, follow Cerebral palsy with DD Seizure disorder - had small focal seizure yesterday. Discussed with neurology -cont depakote, tegretol -prn ativan for seizure Dispo - cont inpt, palliative care consult for ongoing consideration of care goals Subjective: PT doing ok. He has a wet cough. Still SOB. No CP. No fevers. He is tolerating modified diet, but can't drink thin liquids due to aspiration risk. Says he feels "crummy" Objective: Vital Signs Temp Pulse Resp BP Pulse Ox 36.8 C 61 19 109/54 L 94 01/22/18 08:00 01/22/18 08:00 01/22/18 08:00 01/22/18 08:00 01/22/18 08:00 Microbiology 01/21/18 13:50 Respiratory Panel (PCR) - Final Nasal, Sinus - Swab Human Rhinovirus/Enterovirus 01/21/18 05:15 - Final Sputum, Expectorated Sputum Culture - Final Laboratory Results 01/22/18 05:23 01/22/18 05:23 01/21/18 01/22/18 01/23/18 05:59 05:59 05:59 Intake Total 2416 7272 Output Total 530 375 Balance 1813 2417 - Physical Exam Constitutional: no apparent distress Eyes: PERRL Ears, Nose, Mouth, Throat: moist mucous membranes Cardiovascular: regular rate and rhythym Respiratory: no respiratory distress, expiratory wheeze, inspiratory crackles, bronchial breath sounds Gastrointestinal: normoactive bowel sounds, soft, non-tender abdomen Skin: warm Musculoskeletal: full muscle strength Neurologic: AAOx3 Psychiatric: interacting appropriately ICD10 Worksheet Patient Problems: Problems Problem Status Onset Aspiration pneumonia Acute Cough Acute Hypoxemia Acute Interstitial lung disease Acute
--- NOTE | 2018-01-22 12:39 | ASMTCMCOM ---
ASHLEY Note CM Note Notes: Received call from [facility], she needs a referral for palliative consult. ASHLEY faxed referral. Date Signed: 01/22/2018 12:38 PM Electronically Signed By:Emelia Lacy RN
[2018-01-22] MEDS: 1/2 NS 1,000 ML IV SCH (16:39)
[2018-01-22] MEDS: TAMSULOSIN HCL 0.4 MG CAP PO SCH (20:59)
[2018-01-23] MEDS: ALBUTEROL 3 ML DEYVIAL IH SCH ×4 (05:16→20:52)
[2018-01-23] MEDS: GABAPENTIN 300 MG CAP PO SCH ×4 (05:40→21:24)
[2018-01-23] MEDS: AMPICILLIN/SULBACTAM 3 GM in NS 100 ML IV SCH ×3 (05:40→18:02)
[2018-01-23] MEDS: guaiFENesin 600 MG TAB.ER PO SCH ×2 (09:22→21:25)
[2018-01-23] MEDS: CARBAMAZEPINE 100 MG CHEWABLE TAB PO SCH ×3 (09:23→21:25)
[2018-01-23] MEDS: CITALOPRAM 20 MG TAB PO SCH (09:24)
[2018-01-23] MEDS: DIVALPROEX ER 500 MG TAB PO SCH ×2 (09:26→21:24)
[2018-01-23] MEDS: CALCIUM CARB W/VIT D 500 MG TAB PO SCH ×2 (09:27→21:24)
[2018-01-23] MEDS: methylPREDNISolone SOD SUCC 125 MG/2 ML VIAL IVP SCH ×2 (09:28→21:51)
[2018-01-23] MEDS: SENNOSIDES 1 TAB PO SCH ×2 (09:31→21:25)
[2018-01-23] MEDS: ENOXAPARIN 40 MG/0.4 ML SYR SC SCH (09:31)
[2018-01-23] MEDS: TROLAMINE SALICYLATE 85 GM CRTUBE TP SCH ×2 (09:33→22:17)
[2018-01-23] MEDS: 1/2 NS 1,000 ML IV SCH (14:26)
--- NOTE | 2018-01-23 15:41 | HOSPPROG ---
Hospitalist Progress Note Assessment/Plan: Acute on chronic hypoxic and hypercapnic respiratory failure - H/O ILD, on 2-3 LPM baseline. PaO2 of 72 --> 65 --> 76. Initially required bipap, now on 3 LPM. Acute component secondary to aspiration pneumonia, viral URI (+rhinovirus ) and acute RAD exacerbation. -repeat ABG now, assess pCO2 given decreased mentation, if pCO2 on the rise, will transfer to SDU for bipap (unable to do bipap on med/surg) -cont steroids, nebs, atbx (day 5/) -cont to wean O2 as able Sepsis 2/2 aspiration pna - sputum Cx, BCx's ngtd. Concern for ongoing aspiration -cont Unasyn, likely transition to Unasyn at d/c -cont speech / swallow eval Acute encephalopathy - query worsening CO2 retention -check ABG to trend pCO2, may need bipap H/O TBI with left hemiparesis and dysphagia -speech / swallow eval, on modified diet, no thin liquids which makes hydration a challenge Hypernatremia - Na normalized with replacing FWD with D5W -cont 1/2 NS until taking better po Thrombocytopenia - chronic, stable, follow Cerebral palsy with DD Seizure disorder - has had a few small, very brief, breakthrough focal seizures. Discussed with neurology. -cont depakote, tegretol -prn ativan for tonic/clonic seizure activity Dispo - cont inpt, palliative care consult for ongoing consideration of care goals Subjective: Pt received 2 mg IV ativan last night, somnolent all day today. No reported tonic clonic seizure activity. He awakens to verbal stimuli, but quickly drifts back to sleep. He is protecting his airway. No fevers. Still coughing a bit. Objective: Vital Signs Temp Pulse Resp BP Pulse Ox 36.9 C 62 20 122/77 H 96 01/23/18 11:23 01/23/18 12:25 01/23/18 12:25 01/23/18 11:23 01/23/18 12:25 Laboratory Results 01/22/18 05:23 01/23/18 05:05 01/22/18 01/23/18 01/24/18 05:59 05:59 05:59 Intake Total 2792 Output Total 375 Balance 2417 - Physical Exam Constitutional: no apparent distress Eyes: PERRL Ears, Nose, Mouth, Throat: moist mucous membranes Cardiovascular: regular rate and rhythym Respiratory: no respiratory distress, reduced air movement, expiratory wheeze Gastrointestinal: normoactive bowel sounds, soft, non-tender abdomen Skin: warm Musculoskeletal: full muscle strength Neurologic: AAOx3 Psychiatric: encephalopathic ICD10 Worksheet Patient Problems: Problems Problem Status Onset Aspiration pneumonia Acute Cough Acute Hypoxemia Acute Interstitial lung disease Acute
[2018-01-23] MEDS: TAMSULOSIN HCL 0.4 MG CAP PO SCH (21:25)
[2018-01-24] MEDS: AMPICILLIN/SULBACTAM 3 GM in NS 100 ML IV SCH ×4 (00:26→17:46)
[2018-01-24] MEDS: 1/2 NS 1,000 ML IV SCH ×2 (02:52→16:00)
[2018-01-24] MEDS: ALBUTEROL 3 ML DEYVIAL IH SCH ×4 (05:08→21:19)
[2018-01-24] MEDS: GABAPENTIN 300 MG CAP PO SCH ×4 (05:55→22:51)
--- NOTE | 2018-01-24 08:44 | HOSPPROG ---
Hospitalist Progress Note Assessment/Plan: Acute on chronic hypoxic and hypercapneic respiratory failure - H/O ILD, on 2-3 LPM baseline. Suspect chronic aspiration. PaO2 of 72 --> 65 --> 76. Acute component secondary to aspiration pneumonia, viral URI (+rhinovirus) and acute RAD exacerbation. -pCO2 chronically elevated, did not respond to bipap overnight -readdressed goals of care with uncle / medical proxy, see below -cont steroids, nebs, atbx (day 6/7 of Unasyn) -cont to wean O2 as able Sepsis 2/2 aspiration pna - sputum Cx, BCx's ngtd. Concern for ongoing aspiration. -cont Unasyn as above -cont speech / swallow eval Acute encephalopathy - query hypercarbia playing a role H/O TBI with left hemiparesis and dysphagia -speech / swallow eval, on modified diet, no thin liquids which makes hydration a challenge Hypernatremia - Na normalized with replacing FWD with D5W -cont 1/2 NS until taking better po Thrombocytopenia - chronic, stable, platelets now >100 Cerebral palsy with DD Seizure disorder - has had a few small, very brief, breakthrough focal seizures. Discussed with neurology, no change to medications. -cont depakote, tegretol -prn ativan for tonic/clonic seizure activity DVT PPLX - resume lovenox as plts now >100 Dispo - cont inpt, [facility] palliative is involved and will follow pt as outpt. He lives at [facility]. Discussed goals of care with Govind Pollard, pt's uncle / medical proxy. He believes that Jason would not want to be intubated and he believes that we should change him to DNR/DNI. I agree and have made this change today. Transfer back to med/surg Subjective: Pt a bit more alert this am. No fevers/chills. Coughing a bit. Denies CP or SOB. Objective: Vital Signs Temp Pulse Resp BP Pulse Ox 36.7 C 56 L 17 115/61 94 01/24/18 07:40 01/24/18 07:40 01/24/18 07:40 01/24/18 07:40 01/24/18 07:40 Laboratory Results 01/24/18 03:45 01/24/18 03:45 01/23/18 01/24/18 01/25/18 05:59 05:59 05:59 Intake Total 900 Output Total 400 Balance 500 - Physical Exam Constitutional: no apparent distress Eyes: PERRL Ears, Nose, Mouth, Throat: moist mucous membranes Cardiovascular: regular rate and rhythym Respiratory: no respiratory distress, reduced air movement, inspiratory crackles , bronchial breath sounds Skin: warm Musculoskeletal: full muscle strength Psychiatric: encephalopathic ICD10 Worksheet Patient Problems: Problems Problem Status Onset Aspiration pneumonia Acute Cough Acute Hypoxemia Acute Interstitial lung disease Acute
[2018-01-24] MEDS: CITALOPRAM 20 MG TAB PO SCH (08:46)
[2018-01-24] MEDS: CALCIUM CARB W/VIT D 500 MG TAB PO SCH ×2 (08:46→22:49)
[2018-01-24] MEDS: ENOXAPARIN 40 MG/0.4 ML SYR SC SCH (08:47)
[2018-01-24] MEDS: guaiFENesin 600 MG TAB.ER PO SCH ×2 (08:47→22:49)
[2018-01-24] MEDS: methylPREDNISolone SOD SUCC 125 MG/2 ML VIAL IVP SCH ×2 (08:47→22:51)
[2018-01-24] MEDS: SENNOSIDES 1 TAB PO SCH ×2 (08:47→22:49)
[2018-01-24] MEDS: DIVALPROEX ER 500 MG TAB PO SCH ×2 (09:55→22:50)
[2018-01-24] MEDS: CARBAMAZEPINE 100 MG CHEWABLE TAB PO SCH ×3 (09:55→22:50)
[2018-01-24] MEDS: TROLAMINE SALICYLATE 85 GM CRTUBE TP SCH ×2 (10:03→22:52)
[2018-01-24] MEDS: TAMSULOSIN HCL 0.4 MG CAP PO SCH (22:50)
[2018-01-25] MEDS: AMPICILLIN/SULBACTAM 3 GM in NS 100 ML IV SCH ×4 (00:46→17:00)
[2018-01-25] MEDS: 1/2 NS 1,000 ML IV SCH (05:10)
[2018-01-25] MEDS: GABAPENTIN 300 MG CAP PO SCH ×4 (05:10→22:30)
[2018-01-25] MEDS: ALBUTEROL 3 ML DEYVIAL IH SCH ×4 (06:31→21:56)
[2018-01-25] MEDS: SENNOSIDES 1 TAB PO SCH ×2 (09:46→22:30)
[2018-01-25] MEDS: CALCIUM CARB W/VIT D 500 MG TAB PO SCH ×2 (09:46→22:30)
[2018-01-25] MEDS: CITALOPRAM 20 MG TAB PO SCH (09:46)
[2018-01-25] MEDS: CARBAMAZEPINE 100 MG CHEWABLE TAB PO SCH ×3 (09:47→22:31)
[2018-01-25] MEDS: DIVALPROEX ER 500 MG TAB PO SCH ×2 (09:47→22:30)
[2018-01-25] MEDS: guaiFENesin 600 MG TAB.ER PO SCH ×2 (09:47→22:30)
[2018-01-25] MEDS: TROLAMINE SALICYLATE 85 GM CRTUBE TP SCH ×2 (10:03→22:50)
[2018-01-25] MEDS: ENOXAPARIN 40 MG/0.4 ML SYR SC SCH (10:03)
[2018-01-25] MEDS: methylPREDNISolone SOD SUCC 125 MG/2 ML VIAL IVP SCH (10:03)
--- NOTE | 2018-01-25 15:21 | HOSPPROG ---
Hospitalist Progress Note Assessment/Plan: #Acute on chronic hypercapnic/hypoxemic resp failure (BL 2-3L oxygen) -multifactorial with ILD, aspiration PNA, viral infection -CO2 chronically elevated; did not respond to Bipap #Aspiration PNA: complete 7 days Unasyn today #RAD exacerbation: Nebs, change to PO pred and will need taper #Sepsis: 2/2 PNA. Resolved #h/o TBI with left hemiparesis and dysphagia: no thin liquids #Hypernatremia: resolved with D5 #Chronic thrombocytopenia: stable #Cerebral palsy/DD: lives in correction #Seizure d/o: cont home meds #Goals: Dr. Pineda spoke with Jason's uncle (KODI) who stated that he would not want intubation, thus was changed to DNR #Disp: likely DC tomorrow if clinically improved Subjective: coughing less, tired and sleepng more. No N/V/D Objective: Vital Signs Temp Pulse Resp BP Pulse Ox 36.8 C 60 18 102/64 93 01/25/18 08:00 01/25/18 11:35 01/25/18 11:35 01/25/18 08:00 01/25/18 11:35 Laboratory Results 01/24/18 03:45 01/25/18 04:34 01/24/18 01/25/18 01/26/18 05:59 05:59 05:59 Intake Total 900 1844 Output Total 400 2750 600 Balance 500 -906 -600 - Physical Exam Constitutional: no apparent distress Eyes: PERRL Ears, Nose, Mouth, Throat: moist mucous membranes Cardiovascular: regular rate and rhythym Respiratory: rhonchi, No expiratory wheeze Gastrointestinal: normoactive bowel sounds, soft, non-tender abdomen Genitourinary: no bladder fullness Skin: warm Musculoskeletal: other (contractures) Neurologic: CN II-XII Intact Psychiatric: interacting appropriately ICD10 Worksheet Patient Problems: Problems Problem Status Onset Hypoxemia Acute Cough Acute Aspiration pneumonia Acute Interstitial lung disease Acute
--- NOTE | 2018-01-25 15:49 | ASMTCMCOM ---
CM Note CM Note Notes: CM spoke wKamilah Toney RN regarding d/c POC. CM called NATHALIE and they are in the process of scheduling a meeting w/ Angella, the director at [employer] [facility] and uncle Faust ([facility]). CM to follow. Plan: [employer] [facility] Date Signed: 01/25/2018 03:48 PM Electronically Signed By:ELSA Lugo
[2018-01-25] MEDS: TAMSULOSIN HCL 0.4 MG CAP PO SCH (22:31)
[2018-01-26] MEDS: ALBUTEROL 3 ML DEYVIAL IH SCH ×2 (05:30→11:21)
[2018-01-26] MEDS: GABAPENTIN 300 MG CAP PO SCH ×3 (06:00→15:27)
[2018-01-26 07:56] VITALS: BP 107/65
[2018-01-26] MEDS ORDERED: predniSONE 20 MG TAB PO SCH (09:00)
[2018-01-26] MEDS: SENNOSIDES 1 TAB PO SCH (09:20)
[2018-01-26] MEDS: CARBAMAZEPINE 100 MG CHEWABLE TAB PO SCH ×2 (09:20→15:26)
[2018-01-26] MEDS: DIVALPROEX ER 500 MG TAB PO SCH (09:20)
[2018-01-26] MEDS: ENOXAPARIN 40 MG/0.4 ML SYR SC SCH (09:21)
[2018-01-26] MEDS: CITALOPRAM 20 MG TAB PO SCH (09:21)
[2018-01-26] MEDS: guaiFENesin 600 MG TAB.ER PO SCH (09:21)
[2018-01-26] MEDS ORDERED: PNEUMOCOCCAL 0.5ML VACCINE VIAL IM ONE (09:50)
[2018-01-26] MEDS: CALCIUM CARB W/VIT D 500 MG TAB PO SCH (11:00)
[2018-01-26] MEDS: TROLAMINE SALICYLATE 85 GM CRTUBE TP SCH (11:02)
--- NOTE | 2018-01-26 16:10 | GDS ---
[f rep st] DISCHARGE SUMMARY DISCHARGE DIAGNOSIS: 1. Acute on chronic hypercapnic/hypoxemic respiratory failure. 2. Aspiration pneumonia. 3. Reactive airways exacerbation. 4. Sepsis. 5. History of traumatic brain injury with left hemiparesis. 6. Dysphagia. 7. Hyponatremia. 8. Chronic thrombocytopenia. 9. Cerebral palsy/developmental delay. 10. Seizure disorder. 11. Interstitial lung disease. 12. Posttraumatic stress disorder. 13. Urinary incontinence. 14. Major depressive disorder. HISTORY OF PRESENT ILLNESS: 52-year-old male with history of TBI, cerebral palsy/developmental delay, and history of aspiration pneumonia, presenting with shortness of breath. He was seen in the ED earlier the day of admission with cough and hypoxemia. However, was on stable oxygen and afebrile, so he was discharged with Augmentin. When he returned to [facility], he worsened and showed signs of respiratory distress. He initially required BiPAP. HOSPITAL COURSE: 1. Acute on chronic hypercapnic/hypoxemic respiratory failure: His baseline is 2 to 3 L. He presented here with an acute aspiration pneumonia along with rhinovirus/enterovirus. He was treated with 7 days of Unasyn. He was initially in the ICU and was on BiPAP. After a conversation with uncle who is his MPOA, it was decided to have a more palliative comfort approach, thus will not resume BiPAP or CPAP at home. 2. Aspiration pneumonia: Again, has had this in the past after his diet had been liberated from thick liquids. He had a video swallow here that was positive. Thus, uncle is in agreement to going back to a pureed thickened diet. 3. Reactive airway disease exacerbation: This was treated with nebulizers, IV steroids. He was transitioned to prednisone which I will continue for a couple more days. 4. Sepsis secondary to pneumonia: This is resolved. 5. History of traumatic brain injury left hemiparesis. 6. Dysphagia: Again, positive on video swallow here. No thin liquids. 7. Chronic thrombocytopenia: This is stable. No evidence of bleeding. 8. Hyponatremia: Resolved with D5. 9. Seizure disorder: There was concern that he was having possible partial seizures. Dr. Thurston spoke with Neurology and said to continue medications as already prescribed. 10. Goals: Again, Dr. Pineda and I both spoke with Jason's uncle who is his MPOA who stated he would not want intubation. Plan for comfort and quality of care approach. There will be a meeting with Palliative Care and [facility] and his uncle to determine further cares from here. 11. Disposition: Patient is stable for discharge back to [facility] on 3 L. NEW MEDICATIONS: Prednisone 20 mg for 2 days. PHYSICAL EXAMINATION: VITAL SIGNS: Today, temperature 36.8, blood pressure 107 /65, heart rate 60s, respirations 16. He has ranged from 89% to 94% on 3 L. GENERAL: He is sitting up. He is smiling. He appears brighter today. HEENT: PERRLA. Moist mucous membranes. CV: Regular rate and rhythm. Lungs: Bronchial breath sounds. No wheezing or crackles. ABDOMEN: Soft, nontender, nondistended. Positive bowel sounds. : No suprapubic tenderness. MUSCULOSKELETAL: Moving all 4 extremities. NEUROLOGIC: No focal deficits. PSYCHIATRIC: He is answering questions appropriately. TIME SPENT ON DISCHARGE: 40 minutes coordinating transfer to [facility] and medications, also discussing palliative care and further treatment with his uncle. /[id number]/MODL MTDD
--- NOTE | 2018-01-27 13:42 | ASDISCHSUM ---
Discharge Information Plan Status:[facility] Med[facility] Cleared to Leave:01/26/2018 Discharge Date:01/26/2018 04:54 PM D/C Disposition: [facility] D/C Disposition:[id number] Projected Discharge Date:01/26/2018 11:00 AM Transportation at D/C: Discharge Delay Reason: Follow-Up Date:01/26/2018 11:00 AM Discharge Slot: Final Diagnosis:Respiratory distress-sepsis; Hypoxia, PNA Placement Information Referral Type:Palliative Care Referral ID:[id number] Provider Name:[facility] Address 1:[address] [place] Address 2: City:[place] Selection Factors: State:[place] Patient Contact Information Contact Name:ENZO Relationship:Uncle Address: City: [place] [facility] Phone: State/Zip Code: Email: Financial Information Financial Class:Medicare Primary Plan Desc:MEDICARE INPATIENT Primary Plan Number:[id number] Secondary Plan Desc:MED[place] Secondary Plan Number:[id number] Assessment Information [facility] CM Progress Note CM Note CM Note Notes: 52yr old male admitted for Respiratory distress-sepsis; Hypoxia, PNA. He has a Hx of Interstitial lung dis, CP-DD, ILD, CHRF, TBI-L sided weakness, Dysphasia, Sz diso, urinary incontinence, PTSD, Major Depressive Diso. Patient has [facility], primarily wheelchair bound. His uncle Govind is his medical decision maker, . CM to follow for discharge needs. Date Signed: 01/19/2018 09:38 AM Electronically Signed By:Leigh Ann Aguilar LCSW [facility] CM Progress Note CM Note CM Note Notes: Spoke with Roland regarding the Palliative Care consult he had with patient and family. Patient's MDPOA, Uncle Govind has been managing patient's care for some time. Roland states patient expressed he is happy with his life and wants to have all measures taken to preserve it. Patient will most likely return to [facility]. Nathalie will manage the palliative care coordination.CM will continue to follow for any other needs that may arise. Date Signed: 01/21/2018 12:52 PM Electronically Signed By:Macey Soler LCSW [facility] Progress Note CM Note CM Note Notes: Received call from [facility], she needs a referral for palliative consult. CM faxed referral. Date Signed: 01/22/2018 12:38 PM Electronically Signed By:Emelia Lacy RN [facility] Progress Note CM Note CM Note Notes: CM spoke w/ OLIVE Toney regarding d/c POC. CM called NATHALIE and they are in the process of scheduling a meeting w/ Angella, the director at [facility] and uncle Faust ([facility]). CM to follow. Plan: [facility] Date Signed: 01/25/2018 03:48 PM Electronically Signed By:ELSA Lugo Case Management Discharge Plan Note Case Management Discharge Discharge Order Complete? Answers: Yes Patient to Obtain Answers: Other Notes: [facility] Medications Transportation Arranged Answers: Other Notes: [facility] Transport will Pick (Date 01/26/2018 05:00 PM & Time) EMTALA Complete Answers: No Case Management Transport Answers: Yes Form Complete Faxed Final Orders Answers: Yes Agency/Facility Transfer Answers: Yes Report Printed & Faxed to Receiving Agency Family Notified Answers: No Discharge Comments Notes: CM spoke w/ Dr. De La Torre and OLIVE Gilmore regarding d/c POC. CM spoke w/ Kalpana at [facility]. Kalpana reports that they will need a physical prescription for any medications that he is on. CM called NATHALIE and they are in the process of scheduling a consult w/ Uncle Elsy, Director of [facility] for a palliative. CM faxed d/c paperwork to [facility]. CM available for changes. Plan: [facility] Date Signed: 01/26/2018 04:18 PM Electronically Signed By:ELSA Lugo Intervention Information
== END 2018-01-26 16:54 | disposition home health service (06) | DRG 871 ==
LOC: EDUNIT# → F2N 01-19 01:28 → F3E 01-22 09:08 → F2N 01-23 19:09 → F3E 01-24 17:44
PROVIDERS: ADMIT Student in an Organized Health Care Education/Training Program; ATTEND Student in an Organized Health Care Education/Training Program
DX: A41.9 Sepsis, unspecified organism (principal); J96.21 Acute and chronic respiratory failure with hypoxia; J69.0 Pneumonitis due to inhalation of food and vomit; J96.22 Acute and chronic respiratory failure with hypercapnia; J45.901 Unspecified asthma with (acute) exacerbation; E87.1 Hypo-osmolality and hyponatremia; J84.9 Interstitial pulmonary disease, unspecified; R13.10 Dysphagia, unspecified; D69.6 Thrombocytopenia, unspecified; G80.9 Cerebral palsy, unspecified; R32 Unspecified urinary incontinence; F43.10 Post-traumatic stress disorder, unspecified; F32.9 Major depressive disorder, single episode, unspecified; Z87.820 Personal history of traumatic brain injury; Z87.891 Personal history of nicotine dependence; Z23 Encounter for immunization; Z66 Do not resuscitate
CPT/HCPCS: 82947-QW; 92526-GN; 92610-GN; 92611-GN; 96365; 97163-GP; 97166-GO; 97530-GO; 97530-GP; 97535-GO; G0009; G8978-GP-CL; G8979-GP-CK; G8987-GO-CL; G8988-GO-CL; G8996-GN-CJ; G8996-GN-CK; G8997-GN-CJ; G8997-GN-CK; G8998-GN-CK; J0295; J1650; J2060; J2543; J2920; J2930; J3475; J7512; J7613

== ENCOUNTER 2018-02-06 15:45 | Emergency (ER) | payer OTHER, MEDICAID ==
[2018-02-06] MEDS ORDERED: IPRATROPIUM/ALBUTEROL 3 ML DEYVIAL IH ONE (16:46)
--- NOTE | 2018-02-06 16:46 | EDPHY ---
H & P Time Seen by Provider: 02/06/18 16:14 HPI/ROS: Chief complaint. Lethargy, low oxygen saturation HPI. Patient is a 52-year-old male with recent admission about 2 weeks ago for pneumonia. The patient has acute on chronic respiratory failure and is oxygen dependent at 2-2.5 L of oxygen. He has a history of aspiration pneumonia reactive airway disease. He was feeling short of breath and lethargic this morning. His pulse ox this morning was found to be 73% on room air. No chest discomfort. He has had a cough. Unsure about fever. No abdominal pain vomiting or diarrhea ROS Constitutional. Lethargy Eyes. no problems with vision ENT. no sore throat, no nasal drainage Cardiovascular. no chest pain Respiratory. Cough and shortness of breath Abdominal. no abdominal pain, no nausea/vomiting, no diarrhea . no problems urinating MS. no calf pain/swelling, no neck/back pain, no joint pain Skin. no rash Lymph. no swollen glands Neuro. no headache, no dizziness, no difficulty walking or with speech Past Medical/Surgical History: Past medical history aspiration pneumonia, reactive airways disease, sepsis, dysphagia, cerebral palsy, seizure disorder, pulmonary fibrosis, brain injury Social History: Single, nonsmoker, no alcohol Smoking Status: Former smoker Physical Exam: General Appearance: Alert well-developed male mild distress vital signs are stable. Eyes: Pupils equal and round no pallor or injection. ENT, Mouth: Mucous membranes are moist. Respiratory: No retractions but inspiratory expiratory rhonchi Cardiovascular: Regular rate and rhythm. Gastrointestinal: Abdomen is soft and nontender, no masses, bowel sounds normal. Neurological: Awake and alert, sensory and motor exams grossly normal. Skin: Warm and dry, no rashes. Musculoskeletal: Neck is supple nontender. Extremities symmetrical, full range of motion. Psychiatric: Patient is oriented X 3, there is no agitation. Constitutional: Initial Vital Signs Temperature (C) 36.7 C 02/06/18 15:52 Heart Rate 72 02/06/18 15:52 Respiratory Rate 18 02/06/18 15:52 Blood Pressure 101/74 02/06/18 15:52 O2 Sat (%) 96 02/06/18 15:52 O2 Delivery Mode Nasal Cannula O2 (L/minute) 4 Allergies/Adverse Reactions: No Known Allergies Allergy (Verified 01/18/18 23:21) Home Medications: Medication Instructions Recorded Tamsulosin HCl [Flomax 0.4 MG (*)] 0.4 mg PO HS #0 cap 02/12/15 Calcium Citrate W/Vit D [Citracal 2 each PO BID #60 tab 03/06/15 + D] Citalopram Hydrobromide [Celexa] 40 mg PO DAILY #30 tablet 03/06/15 Furosemide [Lasix 20 MG (*)] 10 mg PO DAILY #14 tab 03/06/15 Gabapentin [Neurontin 300 MG (*)] 300 mg PO QID #120 cap 03/06/15 Trolamine Salicylate/Aloe Vera 1 anil TP BID #30 cream.gm. 03/06/15 [Aspercreme 10% Cream] guaiFENesin [Mucinex 600 MG (*)] 600 mg PO BID #60 tab.er 03/06/15 Albuterol [Proventil Neb] 3 ml IH BID 08/08/17 Divalproex ER [Depakote ER 500 MG 1,000 mg PO HS 08/08/17 (*)] Divalproex ER [Depakote ER 500 MG 500 mg PO DAILY 08/08/17 (*)] carBAMazepine [TEGretol (*)] 200 mg PO TID 08/08/17 Herbals/Supplements -Info Only 1 ea PO DAILY 01/19/18 predniSONE 20 mg PO DAILY #2 tab 01/26/18 Medical Decision Making - Diagnostics Imaging Results: Imaging Impressions Chest X-Ray 02/06/18 16:22 Impression: 1. Diffuse interstitial opacities consistent with chronic interstitial fibrosis. 2. Query pulmonary arterial hypertension. 3. See above report for additional findings. Chest x-ray reviewed by me shows diffuse interstitial opacities right-sided worse than left. No change from previous chest x-rays. No evidence for pneumonia Procedures: A septic workup. Bhakti martell ED Course/Re-evaluation: Re-evaluation 5:30 p.m.--patient is stable Re-evaluation 6:20 p.m.. Patient is stable. The patient, his caregiver and I discussed imaging and lab results. We discussed treatment plan including criteria for return importance of follow-up and further evaluation. They expressed understanding and agreement Differential Diagnosis: Patient appears to have chronic interstitial fibrotic disease. There is no evidence for pneumonia. He is oxygen dependent and saturating well on his normal oxygen level. No evidence for sepsis. I think the patient can be safely treated as an outpatient - Data Points Laboratory Results: Laboratory Results 02/06/18 17:05 02/06/18 17:05 02/06/18 02/06/18 02/06/18 17:05 17:05 17:05 WBC 5.36 10^3/uL 10^3/uL (3.80-9.50) RBC 4.20 10^6/uL L 10^6/uL (4.40-6.38) Hgb 13.3 g/dL L g/dL (13.7-17.5) Hct 41.8 % % (40.0-51.0) MCV 99.5 fL fL (81.5-99.8) MCH 31.7 pg pg (27.9-34.1) MCHC 31.8 g/dL L g/dL (32.4-36.7) RDW 14.0 % % (11.5-15.2) Plt Count 97 10^3/uL L 10^3/uL (150-400) MPV 12.8 fL H fL (8.7-11.7) Neut % (Auto) 41.3 % % (39.3-74.2) Lymph % (Auto) 41.0 % % (15.0-45.0) [place] % (Auto) 16.2 % H % (4.5-13.0) Eos % (Auto) 0.4 % L % (0.6-7.6) Baso % (Auto) 0.7 % % (0.3-1.7) Nucleat RBC Rel Count 0.0 % % (0.0-0.2) Absolute Neuts (auto) 2.21 10^3/uL 10^3/uL (1.70-6.50) Absolute Lymphs (auto) 2.20 10^3/uL 10^3/uL (1.00-3.00) Absolute Monos (auto) 0.87 10^3/uL H 10^3/uL (0.30-0.80) Absolute Eos (auto) 0.02 10^3/uL L 10^3/uL (0.03-0.40) Absolute Basos (auto) 0.04 10^3/uL 10^3/uL (0.02-0.10) Absolute Nucleated RBC 0.00 10^3/uL 10^3/uL (0-0.01) Immature Gran % 0.4 % % (0.0-1.1) Immature Gran # 0.02 10^3/uL 10^3/uL (0.00-0.10) PT Pending INR Pending APTT Pending VBG Lactic Acid Sodium 146 mEq/L H mEq/L (135-145) Potassium 4.2 mEq/L mEq/L (3.3-5.0) Chloride 97 mEq/L mEq/L (97-110) Carbon Dioxide 38 mEq/l H mEq/l (22-31) Anion Gap 11 mEq/L mEq/L (8-16) BUN 13 mg/dL mg/dL (7-23) Creatinine 0.6 mg/dL L mg/dL (0.7-1.3) Estimated GFR > 60 Glucose 79 mg/dL mg/dL (70-100) Calcium 9.2 mg/dL mg/dL (8.5-10.4) Total Bilirubin 0.5 mg/dL mg/dL (0.1-1.4) 02/06/18 17:05 WBC RBC Hgb Hct MCV MCH MCHC RDW Plt Count MPV Neut % (Auto) Lymph % (Auto) [place] % (Auto) Eos % (Auto) Baso % (Auto) Nucleat RBC Rel Count Absolute Neuts (auto) Absolute Lymphs (auto) Absolute Monos (auto) Absolute Eos (auto) Absolute Basos (auto) Absolute Nucleated RBC Immature Gran % Immature Gran # PT INR APTT VBG Lactic Acid 1.4 mmol/L mmol/L (0.7-2.1) Sodium Potassium Chloride Carbon Dioxide Anion Gap BUN Creatinine Estimated GFR Glucose Calcium Total Bilirubin Medications Given: Discontinued Medications Albuterol/Ipratropium (Duoneb) 3 ml IH EDNOW ONE Stop: 02/06/18 16:47 Last Admin: 02/06/18 17:07 Dose: 3 ml Departure - Departure Disposition: Home, Routine, Self-Care Clinical Impression: Hypoxemia, Interstitial lung disease Condition: Good Instructions: Chronic Lung Disease and Infection Prevention (ED) Additional Instructions: Continue regular medications. Continue oxygen at 2-2.5 L. May increase albuterol nebulizers to every 8 hr. Return for worsening symptoms. Recheck in 2 days for continuing symptoms Referrals: [facility] WEINER [Other] - 2-3 days, if not improved
[2018-02-06 17:21] LABS: PLATELET COUNT 97 10^3/uL (150-400)
[2018-02-06 18:04] VITALS: BP 112/80
[2018-02-06 18:51] LABS: INR 1.03 (0.83-1.16); PROTIME(PATIENT) 13.7 SEC (12.0-15.0)
== END 2018-02-06 18:40 | disposition home or self-care (01) ==
DX: R09.02 Hypoxemia (principal); J84.9 Interstitial pulmonary disease, unspecified; J45.909 Unspecified asthma, uncomplicated; Z87.891 Personal history of nicotine dependence

== ENCOUNTER 2018-04-07 20:07 | Emergency (ER) | payer OTHER, MEDICAID ==
--- NOTE | 2018-04-07 20:38 | EDPHY ---
H & P Stated Complaint: Blood in stool Time Seen by Provider: 04/07/18 20:29 HPI/ROS: CHIEF COMPLAINT: Blood in stool HISTORY OF PRESENT ILLNESS: 53-year-old male with cerebral palsy presents with blood in stool. Small amount of bright red blood in toilet water, normal appearing stool x 2 today. No abdominal pain, vomiting, diarrhea or constipation. No dizziness or weakness. History of prior rectal bleeding, without clear etiology. REVIEW OF SYSTEMS: complete 10 point ROS negative except at noted in the HPI - Personal History Current Tetanus/Diphtheria Vaccine: Yes Current Tetanus Diphtheria and Acellular Pertussis (TDAP): Yes Tetanus Vaccine Date: 2008 - Medical/Surgical History Hx Asthma: No Hx Chronic Respiratory Disease: Yes Hx Diabetes: No Hx Cardiac Disease: No Hx Renal Disease: No Hx Cirrhosis: No Hx Alcoholism: No Hx HIV/AIDS: No Hx Splenectomy or Spleen Trauma: No Other PMH: Cerebral palsy, thrombocytopenia, dysphagia, seizure disorder, interstitial lung disease, on home oxygen, depression, traumatic brain injury - Social History Smoking Status: Former smoker - Physical Exam Exam: General Appearance: Alert, pleasant Eyes: Pupils equal and round, no conjunctival pallor ENT, Mouth: Mucous membranes moist Neck: Normal inspection Respiratory: Lungs are clear to auscultation Cardiovascular: Regular rate and rhythm Gastrointestinal: Abdomen is soft and nontender Rectal: brown stool mainly, with tiny speck of red blood, hemorrhoids present, no active bleeding Neurological: alert, left weakness Skin: Warm and dry Extremities: Normal inspection Psychiatric: Mood and affect normal Constitutional: Initial Vital Signs Temperature (C) 36.8 C 04/07/18 20:13 Heart Rate 71 04/07/18 20:13 Respiratory Rate 16 04/07/18 20:13 Blood Pressure 109/79 04/07/18 20:13 O2 Sat (%) 96 04/07/18 20:13 O2 Delivery Mode Nasal Cannula O2 (L/minute) 2 Allergies/Adverse Reactions: No Known Allergies Allergy (Verified 01/18/18 23:21) Home Medications: Medication Instructions Recorded Tamsulosin HCl [Flomax 0.4 MG (*)] 0.4 mg PO HS #0 cap 02/12/15 Calcium Citrate W/Vit D [Citracal 2 each PO BID #60 tab 03/06/15 + D] Citalopram Hydrobromide [Celexa] 40 mg PO DAILY #30 tablet 03/06/15 Furosemide [Lasix 20 MG (*)] 10 mg PO DAILY #14 tab 03/06/15 Gabapentin [Neurontin 300 MG (*)] 300 mg PO QID #120 cap 03/06/15 Trolamine Salicylate/Aloe Vera 1 anil TP BID #30 cream.gm. 03/06/15 [Aspercreme 10% Cream] guaiFENesin [Mucinex 600 MG (*)] 600 mg PO BID #60 tab.er 03/06/15 Albuterol [Proventil Neb] 3 ml IH BID 08/08/17 Divalproex ER [Depakote ER 500 MG 1,000 mg PO HS 08/08/17 (*)] Divalproex ER [Depakote ER 500 MG 500 mg PO DAILY 08/08/17 (*)] carBAMazepine [TEGretol (*)] 200 mg PO TID 08/08/17 Herbals/Supplements -Info Only 1 ea PO DAILY 01/19/18 predniSONE 20 mg PO DAILY #2 tab 01/26/18 Medical Decision Making - Diagnostics EKG Interpretation: EKG interpreted by me reveals normal sinus rhythm, rate 72, nonspecific T-wave changes in the anterior leads ED Course/Re-evaluation: This patient presents with bright red blood per rectum. Normal stool with blood in the toilet suggests a distal area of hemorrhage such as a hemorrhoid. Hemorrhoid present without active bleeding. Hematocrit is normal. I feel that he is safe and stable for discharge home. He will follow up with his PCP in the office. Differential Diagnosis: includes though not limited to hemorrhoid, anal fissure, AVM, tumor, diverticular bleed - Data Points Laboratory Results: Laboratory Results 04/07/18 20:58 04/07/18 20:58 Departure - Departure Disposition: Home, Routine, Self-Care Clinical Impression: Rectal bleeding Hemorrhoid Qualifiers: Hemorrhoid type: other Qualified Code(s): K64.8 - Other hemorrhoids Condition: Good Instructions: Hemorrhoids (ED), Rectal Bleeding (ED) Additional Instructions: Return for worsening symptoms or any concerns. Referrals: [facility] WEINER [Other] - As per Instructions (Call to make an appointment.)
--- NOTE | 2018-04-07 20:47 | CPEKG ---
Heart Rate: 72 RR Interval: 833 P-R Interval: 140 QRSD Interval: 80 QT Interval: 388 QTC Interval: 425 P [place]: 46 QRS [place]: 88 T Wave [place]: 7 EKG Severity - ABNORMAL ECG - EKG Impression: SINUS RHYTHM EKG Impression: NONSPECIFIC T ABNORMALITIES, ANTERIOR LEADS Electronically Signed By: Beatriz Rachel 07-Apr-2018 20:47:42
[2018-04-07 21:25] LABS: PLATELET COUNT 99 10^3/uL (150-400)
[2018-04-07 22:49] VITALS: BP 132/84
== END 2018-04-07 22:46 | disposition home or self-care (01) ==
DX: K64.8 Other hemorrhoids (principal); Z87.891 Personal history of nicotine dependence

== ENCOUNTER 2018-07-07 19:18 | Emergency (ER) | payer OTHER, MEDICAID ==
[2018-07-07] MEDS ORDERED: NS 2,800 ML IV ONE (19:56)
--- NOTE | 2018-07-07 20:03 | EDPHY ---
H & P Stated Complaint: genral weakness/fatigue Time Seen by Provider: 07/07/18 19:40 HPI/ROS: CHIEF COMPLAINT: Lethargy HISTORY OF PRESENT ILLNESS: The patient is a 53-year-old man with a history of cerebral palsy, traumatic brain injury, dysphagia, seizure disorder, fibrotic lung disease on 2.5 L home O2 who comes to the emergency department with his home health nurse complaining of lethargy throughout the day today. They also noticed that he his oxygen dropped down into the 70s at 1 point but bumped back into the mid 90s when the turn his oxygen up to 3 L. Patient denies cough or shortness of breath. No nausea vomiting or GI symptoms. No diarrhea. No rashes or bedsores. He states that he has had burning with urination for the last month or 2. No headache. No sinus congestion. He does take Pulmicort daily as well as 3 doses of albuterol each day however recently was changed from a neb to an inhaler. He has not had a fever or chills. Home health nurse states they checked his temperature several time and has been normal. Severity: Moderate Modifying factors: None REVIEW OF SYSTEMS: Constitutional: Generalized fatigue denies: chills, fever, recent illness, recent injury EENTM: denies: blurred vision, double vision, nose congestion Respiratory: See HPI denies cough shortness of breath or aspiration Cardiac: denies: chest pain, irregular heart rate, lightheadedness, palpitations Gastrointestinal/Abdominal: denies: abdominal pain, diarrhea, nausea, vomiting, blood streaked stools Genitourinary: See HPI Musculoskeletal: denies: joint pain, muscle pain Skin: denies: lesions, rash, jaundice, bruising Neurological: denies: headache, numbness, paresthesia, tingling, dizziness, weakness Hematologic/Lymphatic: denies: blood clots, easy bleeding, easy bruising Immunologic/allergic: denies: HIV/AIDS, transplant 10 systems reviewed and negative except as noted EXAM: GENERAL: Wheelchair bound, weakness in all extremities left worse than right HEAD: Atraumatic, normocephalic. EYES: Pupils equal round and reactive to light, extraocular movements intact, sclera anicteric, conjunctiva are normal. ENT: TMs normal, nares patent, oropharynx clear without exudates. Moist mucous membranes. NECK: Normal range of motion, supple without lymphadenopathy or JVD. LUNGS: Breath sounds clear to auscultation bilaterally and equal. No wheezing or rhonchi HEART: Regular rate and rhythm without murmurs, rubs or gallops. ABDOMEN: Soft, nontender, normoactive bowel sounds. No guarding, no rebound. No masses appreciated. BACK: No CVA tenderness, no spinal tenderness, step-offs or deformities EXTREMITIES: Weakness in all extremities left worse than right. Some contractures in left arm. NEUROLOGICAL: Cranial nerves II through XII grossly intact. Some difficulty with speech baseline, wheelchair bound. Weakness on the left arm and leg worse than right which is baseline, baseline movement in all extremities, baseline sensation PSYCH: Normal mood, normal affect. SKIN: Warm, dry, normal turgor, no visible rashes or lesions. Source: Patient, RN/MD, Old records Exam Limitations: Clinical condition - Personal History Current Tetanus/Diphtheria Vaccine: Yes Current Tetanus Diphtheria and Acellular Pertussis (TDAP): Yes Tetanus Vaccine Date: 2012 - Medical/Surgical History Hx Asthma: No Hx Chronic Respiratory Disease: Yes Hx Diabetes: No Hx Cardiac Disease: No Hx Renal Disease: No Hx Cirrhosis: No Hx Alcoholism: No Hx HIV/AIDS: No Hx Splenectomy or Spleen Trauma: No Other PMH: Cerebral palsy, thrombocytopenia, dysphagia, seizure disorder, interstitial lung disease, on home oxygen, depression, traumatic brain injury - Family History Significant Family History: No pertinent family hx - Social History Smoking Status: Former smoker Alcohol Use: Sober Drug Use: None Constitutional: Initial Vital Signs Temperature (C) 36.7 C 07/07/18 19:22 Heart Rate 65 07/07/18 19:22 Respiratory Rate 20 07/07/18 19:22 Blood Pressure 107/71 07/07/18 19:22 O2 Sat (%) 95 07/07/18 19:22 O2 Delivery Mode Nasal Cannula O2 (L/minute) 2 Allergies/Adverse Reactions: No Known Allergies Allergy (Verified 07/07/18 19:21) Home Medications: Medication Instructions Recorded Tamsulosin HCl [Flomax 0.4 MG (*)] 0.4 mg PO HS #0 cap 02/12/15 Calcium Citrate W/Vit D [Citracal 2 each PO BID #60 tab 03/06/15 + D] Citalopram Hydrobromide [Celexa] 40 mg PO DAILY #30 tablet 03/06/15 Furosemide [Lasix 20 MG (*)] 10 mg PO DAILY #14 tab 03/06/15 Gabapentin [Neurontin 300 MG (*)] 300 mg PO QID #120 cap 03/06/15 Trolamine Salicylate/Aloe Vera 1 anil TP BID #30 cream.gm. 03/06/15 [Aspercreme 10% Cream] guaiFENesin [Mucinex 600 MG (*)] 600 mg PO BID #60 tab.er 03/06/15 Albuterol [Proventil Neb] 3 ml IH BID 08/08/17 Divalproex ER [Depakote ER 500 MG 1,000 mg PO HS 08/08/17 (*)] Divalproex ER [Depakote ER 500 MG 500 mg PO DAILY 08/08/17 (*)] carBAMazepine [TEGretol (*)] 200 mg PO TID 08/08/17 Herbals/Supplements -Info Only 1 ea PO DAILY 01/19/18 predniSONE 20 mg PO DAILY #2 tab 01/26/18 Aspercreme 07/07/18 Medical Decision Making - Diagnostics EKG Interpretation: An EKG obtained and was read and documented in trace view. Please see trace view for full reading and report. The sinus rhythm, borderline T-wave abnormalities, unchanged from previous EKG Imaging: I viewed and interpreted images myself (Fibrosis, similar to previous) ED Course/Re-evaluation: The patient is saturating 98% on room air. His lab work is reassuring. He is feeling more alert after hydration. He is receiving his evening medications and albuterol. I discussed options with him. I gave him the option of staying in the hospital versus going home and re-evaluation tomorrow. He would prefer to go home. I believe that this is reasonable. Home nurse agrees with this plan and will pass along the information. Differential Diagnosis: Partial list of the Differential diagnosis considered include but were not limited to; pneumonia, COPD exacerbation, urinary tract infection, sepsis and although unlikely based on the history and physical exam, I also considered rash wound infection, seizure. I discussed these differential diagnoses and the plan with the patient as well as the usual and expected course. The patient understands that the diagnosis is provisional and that in medicine we are not always correct and that further workup is often warranted. Usual and customary warnings were given. All of the patient's questions were answered. The patient was instructed to return to the emergency department should the symptoms at all worsen or return, otherwise to followup with the physician as we discussed. - Data Points Laboratory Results: Laboratory Results 07/07/18 20:20 07/07/18 20:20 Microbiology Results: MICROBIOLOGY 07/07/18 21:10 Nasal, Sinus - Swab Respiratory Panel (PCR) - Final No Organism Detected Medications Given: Discontinued Medications Albuterol/Ipratropium (Duoneb) 3 ml IH EDNOW ONE Stop: 07/07/18 21:06 Last Admin: 07/07/18 21:17 Dose: 3 ml Sodium Chloride (Ns) 2,800 mls @ 5,600 mls/hr 30 ml/kg infuse over 30 min ( 2800 ml) IV EDNOW ONE PRN Reason: Protocol Stop: 07/07/18 20:25 Last Admin: 07/07/18 20:30 Dose: 2,800 mls Departure - Departure Disposition: Home, Routine, Self-Care Clinical Impression: Generalized weakness, Dehydration Condition: Fair Instructions: Dehydration (ED), Weakness (ED) Referrals: NONE *PRIMARY CARE P,. [Primary Care Provider] - 1 day, if not improved
[2018-07-07 20:41] LABS: PLATELET COUNT 113 10^3/uL (150-400)
[2018-07-07 20:49] LABS: INR 0.99 (0.83-1.16); PROTIME(PATIENT) 13.3 SEC (12.0-15.0)
[2018-07-07] MEDS ORDERED: IPRATROPIUM/ALBUTEROL 3 ML DEYVIAL IH ONE (21:05)
--- NOTE | 2018-07-07 21:19 | CPEKG ---
Test Reason : OPEN Blood Pressure : / mmHG Vent. Rate : 070 BPM Atrial Rate : 070 BPM P-R Int : 138 ms QRS Dur : 090 ms QT Int : 417 ms P-R-T Axes : 051 093 006 degrees QTc Int : 450 ms Sinus rhythm Borderline right axis deviation Borderline T abnormalities, anterior leads Confirmed by Damion Pitt ([id number]) on 07/07/2018 9:18:54 PM Referred By: Confirmed By:Damion Pitt
[2018-07-07 22:03] VITALS: BP 123/68
== END 2018-07-07 22:03 | disposition home or self-care (01) ==
DX: M62.81 Muscle weakness (generalized) (principal); E86.0 Dehydration; J84.10 Pulmonary fibrosis, unspecified; G40.909 Epilepsy, unspecified, not intractable, without status epilepticus; G80.9 Cerebral palsy, unspecified; Z87.820 Personal history of traumatic brain injury; Z99.81 Dependence on supplemental oxygen; Z99.3 Dependence on wheelchair; Z87.891 Personal history of nicotine dependence

== ENCOUNTER → 2018-07-28 | Outpatient (CLI) | payer OTHER, MEDICAID | LOC: BMCIMAGING 12:21 | PROVIDERS: ATTEND Family Medicine | DX: M79.89 Other specified soft tissue disorders (principal) ==

== ENCOUNTER 2018-09-06 13:03 | Emergency (ER) | payer OTHER, MEDICAID ==
[2018-09-06 13:22] VITALS: BP 92/64
--- NOTE | 2018-09-06 13:40 | EDPHY ---
H & P Stated Complaint: Hx pulm fibrosis, low sats on incrsed O2 today. No pain. Time Seen by Provider: 09/06/18 13:26 HPI/ROS: CHIEF COMPLAINT: Increased oxygen requirement HISTORY OF PRESENT ILLNESS: 53-year-old male with cerebral palsy and pulmonary fibrosis, on 2 L by nasal cannula presents with an increased oxygen requirement. His caretakers today noticed that his oxygen level was in the mid 80s on his usual oxygen. He does not feel short of breath. Also has a mild pain in the right lower chest wall. Pain increases with palpation. The pain does not increase with deep inspiration or with movement. No cough, fever or recent URI symptoms. REVIEW OF SYSTEMS: complete 10 point ROS reviewed and is negative except for the noted elements in the HPI - Personal History Current Tetanus/Diphtheria Vaccine: Yes Tetanus Vaccine Date: 2012 - Medical/Surgical History Hx Asthma: No Hx Chronic Respiratory Disease: Yes Hx Diabetes: No Hx Cardiac Disease: No Hx Renal Disease: No Hx Cirrhosis: No Hx Alcoholism: No Hx HIV/AIDS: No Hx Splenectomy or Spleen Trauma: No Other PMH: Cerebral palsy, thrombocytopenia, dysphagia, seizure disorder, interstitial lung disease, on home oxygen, depression, traumatic brain injury - Social History Smoking Status: Former smoker Drug Use: None Additional Social History: lives at [facility] - Physical Exam Exam: General Appearance: Alert, pleasant, nontoxic-appearing Eyes: Pupils equal and round, no conjunctival pallor or injection ENT, Mouth: Mucous membranes moist Neck: Normal inspection Respiratory: Normal respiratory rate, Diffuse expiratory rales Cardiovascular: Regular rate and rhythm Gastrointestinal: Abdomen is soft and nontender Neurological: Alert, left-sided weakness Skin: Warm and dry, no rash Extremities: Left hand contracture, brace on left ankle and foot Psychiatric: Mood and affect normal Constitutional: Initial Vital Signs Temperature (C) 36.5 C 09/06/18 13:20 Heart Rate 72 09/06/18 13:20 Respiratory Rate 20 09/06/18 13:20 Blood Pressure 92/64 L 09/06/18 13:20 O2 Sat (%) 87 L 09/06/18 13:20 O2 Delivery Mode Nasal Cannula O2 (L/minute) 2 Allergies/Adverse Reactions: No Known Allergies Allergy (Verified 09/06/18 13:20) Home Medications: Medication Instructions Recorded Tamsulosin HCl [Flomax 0.4 MG (*)] 0.4 mg PO HS #0 cap 02/12/15 Calcium Citrate W/Vit D [Citracal 2 each PO BID #60 tab 03/06/15 + D] Citalopram Hydrobromide [Celexa] 40 mg PO DAILY #30 tablet 03/06/15 Furosemide [Lasix 20 MG (*)] 10 mg PO DAILY #14 tab 03/06/15 Gabapentin [Neurontin 300 MG (*)] 300 mg PO QID #120 cap 03/06/15 Trolamine Salicylate/Aloe Vera 1 anil TP BID #30 cream.gm. 03/06/15 [Aspercreme 10% Cream] guaiFENesin [Mucinex 600 MG (*)] 600 mg PO BID #60 tab.er 03/06/15 Albuterol [Proventil Neb] 3 ml IH BID 08/08/17 Divalproex ER [Depakote ER 500 MG 1,000 mg PO HS 08/08/17 (*)] Divalproex ER [Depakote ER 500 MG 500 mg PO DAILY 08/08/17 (*)] carBAMazepine [TEGretol (*)] 200 mg PO TID 08/08/17 Herbals/Supplements -Info Only 1 ea PO DAILY 01/19/18 predniSONE 20 mg PO DAILY #2 tab 01/26/18 Aspercreme 07/07/18 Medical Decision Making - Diagnostics Imaging Results: Imaging Impressions Chest X-Ray 09/06/18 13:32 Impression: 1. Patchy bilateral infiltrates diffusely on the right involving the left mid to lower lung on top of chronic interstitial lung disease. 2. Moderate bleb formation at the lung apices left side more than right. ED Course/Re-evaluation: This patient presents with hypoxia. He is not in respiratory distress and denies respiratory symptoms. The patient was placed on oxygen by PR in ED. O2 sat 100% on 2liters. Pt's oxygen canister is not working correctly. He has an extra oxygen canister with him and on the new oxygen canister, his oxygen saturation is 100% on 2 L. chest x-ray performed because right chest wall tenderness. Chest x-ray reveals no acute change. The chest pain is musculoskeletal in etiology, without concerning signs or symptoms. He is safe and stable for discharge home. Departure - Departure Disposition: Home, Routine, Self-Care Clinical Impression: oxygen canister malfunction Condition: Good Instructions: Using Oxygen at Home (ED), Hypoxia (ED), Pulse Oximetry (ED) Additional Instructions: Return for shortness of breath, respiratory symptoms or any concerns. Referrals: Jaylan Gardner MD [[facility] [place] Primary Care Provider] - As per Instructions
--- NOTE | 2018-09-06 14:54 | ASMTCMCOM ---
CM Note CM Note Notes: Madhuri from [facility] called to inquire on DC status of mutual pt. Pt. 02 levels back to normal and no 02 tank working. [facility] to follow up with pt. on discharge. Date Signed: 09/06/2018 02:53 PM Electronically Signed By:Kristofer Amador LCSW
== END 2018-09-06 14:37 | disposition home or self-care (01) ==
DX: J95.850 Mechanical complication of respirator (principal); G80.9 Cerebral palsy, unspecified; G40.909 Epilepsy, unspecified, not intractable, without status epilepticus; D69.6 Thrombocytopenia, unspecified; R13.10 Dysphagia, unspecified; J84.9 Interstitial pulmonary disease, unspecified; Z87.820 Personal history of traumatic brain injury; Z87.891 Personal history of nicotine dependence

== ENCOUNTER 2018-10-03 00:18 | Emergency (ER) | payer OTHER, MEDICAID ==
--- NOTE | 2018-10-03 00:31 | EDPHY ---
H & P Stated Complaint: Low O2 at home, denies SOB Time Seen by Provider: 10/03/18 00:28 HPI/ROS: Chief Complaint: Low oxygen saturations HPI: 53-year-old male with a history of cerebral palsy, left-sided hemiparesis secondary to above, traumatic brain injury in the past. He is on chronic 2 L of oxygen via nasal cannula. Patient was noted to be hypoxemic on pulse ox by staff at the retirement. There he was reportedly satting in the low 80s on his usual 2 L. Patient denies any chest pain, shortness of breath, no cough. No recent illness. He states he feels at his baseline. EMS was called and noticed that his oxygen saturations were greater than 94% on 3 L. he is currently without complaint. ROS: 10 systems were reviewed and were negative except those elements noted in the HPI. Social History: No smoking, no alcohol, no recreational drug use, lives in retirement Family History: non-contributory Physical Exam: Gen: Awake, Alert, No Distress HEENT: Nose: no rhinorrhea Eyes: PERRLA, EOMI Mouth: Moist mucosa Neck: Supple, no JVD Chest: nontender, lungs clear to auscultation, no focal rales or rhonchi Heart: S1, S2 normal, no murmur Abd: Soft, non-tender, no guarding Back: no CVA tenderness, no midline tenderness Ext: no edema, non-tender Skin: no rash Neuro: CN II-XII intact, Sensation grossly intact, Strength 5/5 in bilateral upper and lower extremities - Personal History Current Tetanus Diphtheria and Acellular Pertussis (TDAP): Yes Tetanus Vaccine Date: 2012 - Medical/Surgical History Hx Asthma: No Hx Chronic Respiratory Disease: Yes Hx Diabetes: No Hx Cardiac Disease: No Hx Renal Disease: No Hx Cirrhosis: No Hx Alcoholism: No Hx HIV/AIDS: No Hx Splenectomy or Spleen Trauma: No Other PMH: Cerebral palsy, thrombocytopenia, dysphagia, seizure disorder, interstitial lung disease, on home oxygen, depression, traumatic brain injury - Social History Smoking Status: Former smoker Constitutional: Initial Vital Signs Temperature (C) 36.8 C 10/03/18 00:20 Heart Rate 99 10/03/18 00:20 Respiratory Rate 18 10/03/18 00:20 Blood Pressure 111/73 10/03/18 00:20 O2 Sat (%) 93 10/03/18 00:20 O2 Delivery Mode Nasal Cannula O2 (L/minute) 2 Allergies/Adverse Reactions: No Known Allergies Allergy (Verified 10/03/18 00:22) Home Medications: Medication Instructions Recorded Tamsulosin HCl [Flomax 0.4 MG (*)] 0.4 mg PO HS #0 cap 02/12/15 Calcium Citrate W/Vit D [Citracal 2 each PO BID #60 tab 03/06/15 + D] Citalopram Hydrobromide [Celexa] 40 mg PO DAILY #30 tablet 03/06/15 Furosemide [Lasix 20 MG (*)] 10 mg PO DAILY #14 tab 03/06/15 Gabapentin [Neurontin 300 MG (*)] 300 mg PO QID #120 cap 03/06/15 Trolamine Salicylate/Aloe Vera 1 anil TP BID #30 cream.gm. 03/06/15 [Aspercreme 10% Cream] guaiFENesin [Mucinex 600 MG (*)] 600 mg PO BID #60 tab.er 03/06/15 Albuterol [Proventil Neb] 3 ml IH BID 08/08/17 Divalproex ER [Depakote ER 500 MG 1,000 mg PO HS 08/08/17 (*)] Divalproex ER [Depakote ER 500 MG 500 mg PO DAILY 08/08/17 (*)] carBAMazepine [TEGretol (*)] 200 mg PO TID 08/08/17 Herbals/Supplements -Info Only 1 ea PO DAILY 01/19/18 predniSONE 20 mg PO DAILY #2 tab 01/26/18 Aspercreme 07/07/18 Medical Decision Making ED Course/Re-evaluation: 53-year-old with a history of chronic oxygen demands on 2 L nasal cannula with reported least low oxygen saturations at his residence. Patient has been completely without symptom or complaint. He has a completely normal exam at this time. Here he is satting 94-96% on 2 L nasal cannula. He is at his baseline. I suspect his low oxygen levels were secondary to a poor pulse oximetry reading. He is well-appearing as baseline. Plan will be for discharge back to his residence. Departure - Departure Disposition: Home, Routine, Self-Care Clinical Impression: Chronic lung disease Condition: Good Instructions: Normal Exam (ED) Additional Instructions: Follow up with primary care physician for any concerns. Referrals: NONE *PRIMARY CARE P,. [Primary Care Provider] - As per Instructions
[2018-10-03 01:00] VITALS: BP 115/78
== END 2018-10-03 01:01 | disposition home or self-care (01) ==
LOC: EDUNIT# → EDBD
DX: J98.4 Other disorders of lung (principal); Z99.81 Dependence on supplemental oxygen; G80.9 Cerebral palsy, unspecified; Z87.820 Personal history of traumatic brain injury

== ENCOUNTER 2018-10-26 23:11 | Emergency (ER) | payer OTHER, MEDICAID ==
--- NOTE | 2018-10-26 23:21 | EDPHY ---
H & P Stated Complaint: Dizzy, SOB, "low O2 at home" Time Seen by Provider: 10/26/18 23:20 HPI/ROS: HPI CHIEF COMPLAINT: Low oxygen at home. HISTORY OF PRESENT ILLNESS: 53-year-old male, presents to the emergency room by private vehicle for low oxygen at home. The patient has interstitial lung disease, and is oxygen dependent he wears 2 L nasal cannula. He returned home from [facility], was getting ready for bed and stable his vitals. They report he had an O2 sat at 83%. Patient is complaining of feeling lightheaded. No chest pain. Patient denies any significant cough. Denies fever. Denies chest pain. He arrives to the emergency room stable. He arrives by private vehicle. His initial room air saturation on 2 L is 93%. I asked him if anything bothers him he states "he rather feels fine". Past Medical History: Significant medical history for cerebral palsy, traumatic brain injury, interstitial lung disease on 2 L nasal cannula at home seizure disorder. Past Surgical History: Denies recent surgery Social History: Denies drugs alcohol tobacco. Resides at a [facility]. Family History: Noncontributory ROS REVIEW OF SYSTEMS: Limited due to cognitive decline. Exam Constitutional triage nursing summary reviewed, vital signs reviewed, awake/ alert. Eyes normal conjunctivae and sclera, EOMI, PERRLA. HENT normal inspection, atraumatic, moist mucus membranes, no epistaxis, neck supple/ no meningismus, no raccoon eyes. Respiratory slight crackles left lung base, otherwise clear to auscultation bilaterally, normal breath sounds, no respiratory distress, no wheezing. Cardiovascular rate normal, regular rhythm, no murmur, no edema, distal pulses normal. Gastrointestinal soft, non-tender, no rebound, no guarding, normal bowel sounds, no distension, no pulsatile mass. Genitourinary no CVA tenderness. Musculoskeletal no midline vertebral tenderness, full range of motion, no calf swelling, no tenderness of extremities, no meningismus, good pulses, neurovascularly intact. Skin pink, warm, & dry, no rash, skin atraumatic. Neurologic awake, alert and oriented x 3, AAOx3, moves all 4 extremities equally, motor intact, sensory intact, CN II-XII intact, normal cerebellar, normal vision, normal speech. Psychiatric normal mood/affect. Heme/Lymph/Immune no lymphadenopathy. Differential Diagnosis: Includes but is not limited to in a particular order interstitial lung disease, hypoxia, pneumonia, reactive airway disease, pleural effusion Medical Decision Making: Plan for this patient chest x-ray two view, IV establishment basic blood work, EKG, and re-evaluate. Will place on O2 sat of 2 L and see what his oxygen level does. Re-evaluation: EKG interpretation by me on record in [employer] system. Impression time of EKG 2337, sinus rhythm rate of 72 T-wave abnormality V1 V2 V3 otherwise unremarkable EKG and when compared to the patient's old EKG dated 07/07/2018 the T-wave inversions are very similar in morphology and seen on the previous EKG. Chest x-ray two view: Reviewed by myself. Interstitial lung disease present. No dense pneumonia. Chest x-ray appears stable from previous chest x-ray 2 months ago. Patient here in the emergency room noted to have stable vital signs, afebrile, no hypoxia. 1230AM: Patient's vital signs heart rate 71, pulse ox 94% on 2 L. resting comfortably without complaint. Patient D-dimer is 0.49 at the cut off. Given this chest x-ray has chronic interstitial lung disease it is hard to evaluate for superimposed pneumonia and the patient had a O2 sat at home of 83% is still slightly tachypneic care will plan with CT angiogram of the chest. Rule out PE rule out pneumonia. CT angiogram of the chest: Faxed me by [facility] at 1:59 a.m.: No evidence of pulmonary embolism. Scarring and fibrosis seen at the lung bases. Please see full dictation for differential. Enlargement of the central pulmonary arteries consistent with pulmonary arterial hypertension. 0627AM: I did re-evaluate the patient this time is resting comfortably. He has been sleeping most of the impact night in the emergency room. He has been here observed for over 7 hr. He has had no further respiratory distress or respiratory compromise. He has been sleeping resting comfortably on his baseline oxygen level. His current vitals at this time heart rate 64, pulse ox 98% on 2 L blood pressure is 100/71. The patient has not had a cough here. There has been no profound hypoxia He has been afebrile. He has been satting comfortably on 2 L nasal cannula in no distress He slept for multiple hours. His chest x-ray is similar to his previous chest x-ray CT angiogram of the chest showed no evidence of PE. The patient's labs have been reviewed EKG is stable Troponin negative Patient denies any chest pain I have discussed at length with him if he would like to go home and he would like to go home. Does not have any respiratory distress at this time and is resting comfortably Discussed return precautions with him and his building inspection engineer at bedside they are comfortable this plan they are comfortable being discharged home. Return if worsening symptoms worsening chest pain, shortness of breath, not doing well. Source: Patient - Personal History Current Tetanus Diphtheria and Acellular Pertussis (TDAP): Yes Tetanus Vaccine Date: 2012 - Medical/Surgical History Hx Asthma: No Hx Chronic Respiratory Disease: Yes Hx Diabetes: No Hx Cardiac Disease: No Hx Renal Disease: No Hx Cirrhosis: No Hx Alcoholism: No Hx HIV/AIDS: No Hx Splenectomy or Spleen Trauma: No Other PMH: Cerebral palsy, thrombocytopenia, dysphagia, seizure disorder, interstitial lung disease, on home oxygen, depression, traumatic brain injury - Social History Smoking Status: Former smoker Constitutional: Initial Vital Signs Temperature (C) 36.2 C 10/26/18 23:19 Heart Rate 74 10/26/18 23:19 Respiratory Rate 19 10/26/18 23:19 Blood Pressure 115/82 H 10/26/18 23:19 O2 Sat (%) 93 10/26/18 23:19 O2 Delivery Mode Nasal Cannula O2 (L/minute) 2 Allergies/Adverse Reactions: No Known Allergies Allergy (Verified 10/26/18 23:15) Home Medications: Medication Instructions Recorded Tamsulosin HCl [Flomax 0.4 MG (*)] 0.4 mg PO HS #0 cap 02/12/15 Calcium Citrate W/Vit D [Citracal 2 each PO BID #60 tab 03/06/15 + D] Citalopram Hydrobromide [Celexa] 40 mg PO DAILY #30 tablet 03/06/15 Furosemide [Lasix 20 MG (*)] 10 mg PO DAILY #14 tab 03/06/15 Gabapentin [Neurontin 300 MG (*)] 300 mg PO QID #120 cap 03/06/15 Trolamine Salicylate/Aloe Vera 1 anil TP BID #30 cream.gm. 06/23/15 [Aspercreme 10% Cream] guaiFENesin [Mucinex 600 MG (*)] 600 mg PO BID #60 tab.er 03/06/15 Albuterol [Proventil Neb] 3 ml IH BID 08/08/17 Divalproex ER [Depakote ER 500 MG 1,000 mg PO HS 08/08/17 (*)] Divalproex ER [Depakote ER 500 MG 500 mg PO DAILY 08/08/17 (*)] carBAMazepine [TEGretol (*)] 200 mg PO TID 08/08/17 Herbals/Supplements -Info Only 1 ea PO DAILY 01/19/18 predniSONE 20 mg PO DAILY #2 tab 01/26/18 Aspercreme 07/07/18 Medical Decision Making - Diagnostics Imaging Results: Imaging Impressions Chest/Thorax CTA 10/27/18 01:17 Impression: 1. No evidence of thrombopulmonary embolic disease. 2. Interstitial lung disease and fibrosis stable in appearance. Stable 1 cm pulmonary nodule left lower lobe. 3. Evidence of underlying pulmonary artery hypertension. 4. Other chronic findings as above which are stable. A preliminary report was provided by [facility] to Mikel Leung MD on 10/27/2018 at 0200 hours. The final interpretation is concordant. - Data Points Laboratory Results: Laboratory Results 10/27/18 00:12 10/27/18 00:12 Medications Given: Discontinued Medications Sodium Chloride (Ns) 1,000 mls @ 0 mls/hr IV EDNOW ONE; Wide Open PRN Reason: Protocol Stop: 10/26/18 23:33 Last Admin: 10/26/18 23:43 Dose: 1,000 mls Point of Care Test Results: Chemistry 10/27/18 00:14 POC Troponin I 0.00 ng/mL ng/mL (0.00-0.08) Departure - Departure Disposition: Home, Routine, Self-Care Clinical Impression: Cough Condition: Good Instructions: Acute Cough (ED) Additional Instructions: 1. Return to the emergency room if you have worsening cough, shortness of breath or not doing well Referrals: NONE *PRIMARY CARE P,. [Primary Care Provider] - As per Instructions
[2018-10-26] MEDS ORDERED: NS 1,000 ML IV ONE (23:32)
[2018-10-27 00:31] LABS: PROTIME(PATIENT) 13.4 SEC (12.0-15.0)
[2018-10-27 00:39] LABS: PLATELET COUNT 120 10^3/uL (150-400)
[2018-10-27] MEDS ORDERED: IOHEXOL 350mgI/ML (OMNIPAQUE) 150 ML BTL IV ONE (01:19)
[2018-10-27 06:32] VITALS: BP 100/61
--- NOTE | 2018-10-30 07:34 | CPEKG ---
Test Reason : OPEN Blood Pressure : / mmHG Vent. Rate : 072 BPM Atrial Rate : 072 BPM P-R Int : 141 ms QRS Dur : 084 ms QT Int : 391 ms P-R-T Axes : 051 089 056 degrees QTc Int : 428 ms Sinus rhythm Nonspecific T abnormalities, anterior leads Confirmed by Mikel Leung ([id number]) on 10/30/2018 7:33:28 AM Referred By: Mikel Leung Confirmed By:Mikel Leung
== END 2018-10-27 06:51 | disposition home or self-care (01) ==
DX: R05 Cough (principal); J84.9 Interstitial pulmonary disease, unspecified; E86.9 Volume depletion, unspecified; Z99.81 Dependence on supplemental oxygen
CPT/HCPCS: 71046; 71275; 93005; 96360; 99285; Q9967; 84484-ER

== ENCOUNTER 2018-11-16 22:44 | Emergency (ER) | payer OTHER, MEDICAID ==
--- NOTE | 2018-11-16 23:19 | EDPHY ---
H & P Stated Complaint: increased O2 demand, increased inhaled use. Normally on 2L now on 5L Time Seen by Provider: 11/16/18 23:00 HPI/ROS: Chief Complaint: Low oxygen levels HPI: 53-year-old male with a history of cerebral palsy, seizure disorder in interstitial lung disease. He is on chronic home oxygen at 2 liters/minute. Pr resident staff they noted that his oxygen levels were dropping down to the 80s on 2 L. They had to bump him up to 5 liters/minute to get his oxygen saturations in the 90s. Patient states his breathing P feels a little bit heavier than normal. No cough. No fevers or chills. No nausea or vomiting. Otherwise has been in his usual state of health. He has had multiple ED visits in the past for low oxygen levels are he has been found to be at his baseline. ROS: 10 systems were reviewed and were negative except those elements noted in the HPI. PMH: Interstitial lung disease, CP, seizure disorder, hemiplegia secondary to cerebral palsy Social History: No smoking, no alcohol, no recreational drug use Family History: non-contributory Physical Exam: Gen: Awake, Alert, No Distress HEENT: Nose: no rhinorrhea Eyes: PERRLA, EOMI Mouth: Moist mucosa Neck: Supple, no JVD Chest: nontender, fine crackles left greater than right Heart: S1, S2 normal, no murmur Abd: Soft, non-tender, no guarding Back: no CVA tenderness, no midline tenderness Ext: no edema, non-tender Skin: no rash Neuro: CN II-XII intact, Sensation grossly intact, Strength 5/5 in bilateral upper and lower extremities - Personal History Current Tetanus/Diphtheria Vaccine: Yes Current Tetanus Diphtheria and Acellular Pertussis (TDAP): Yes Tetanus Vaccine Date: 2012 - Medical/Surgical History Hx Asthma: No Hx Chronic Respiratory Disease: Yes Hx Diabetes: No Hx Cardiac Disease: No Hx Renal Disease: No Hx Cirrhosis: No Hx Alcoholism: No Hx HIV/AIDS: No Hx Splenectomy or Spleen Trauma: No Other PMH: Cerebral palsy, thrombocytopenia, dysphagia, seizure disorder, interstitial lung disease, on home oxygen, depression, traumatic brain injury - Social History Smoking Status: Former smoker Constitutional: Initial Vital Signs Temperature (C) 36.7 C 11/16/18 22:54 Heart Rate 80 11/16/18 22:54 Respiratory Rate 20 11/16/18 22:54 Blood Pressure 106/55 L 11/16/18 22:54 O2 Sat (%) 93 11/16/18 22:54 O2 Delivery Mode Nasal Cannula O2 (L/minute) 2 Allergies/Adverse Reactions: No Known Allergies Allergy (Verified 11/16/18 22:53) Home Medications: Medication Instructions Recorded Tamsulosin HCl [Flomax 0.4 MG (*)] 0.4 mg PO HS #0 cap 02/12/15 Calcium Citrate W/Vit D [Citracal 2 each PO BID #60 tab 03/06/15 + D] Citalopram Hydrobromide [Celexa] 40 mg PO DAILY #30 tablet 03/06/15 Furosemide [Lasix 20 MG (*)] 10 mg PO DAILY #14 tab 03/06/15 Gabapentin [Neurontin 300 MG (*)] 300 mg PO QID #120 cap 03/06/15 Trolamine Salicylate/Aloe Vera 1 anil TP BID #30 cream.gm. 03/06/15 [Aspercreme 10% Cream] guaiFENesin [Mucinex 600 MG (*)] 600 mg PO BID #60 tab.er 03/06/15 Albuterol [Proventil Neb] 3 ml IH BID 08/08/17 Divalproex ER [Depakote ER 500 MG 1,000 mg PO HS 08/08/17 (*)] Divalproex ER [Depakote ER 500 MG 500 mg PO DAILY 08/08/17 (*)] carBAMazepine [TEGretol (*)] 200 mg PO TID 08/08/17 Herbals/Supplements -Info Only 1 ea PO DAILY 01/19/18 Aspercreme 07/07/18 Medical Decision Making - Diagnostics Imaging Results: Chest x-ray shows diffuse interstitial lung disease, unchanged from prior per my interpretation. Imaging: I viewed and interpreted images myself ED Course/Re-evaluation: 53-year-old male with interstitial lung disease, CP presenting with hypoxemia. Oxygen saturations here are 95% on 2 L. He has been served in the emergency department. He has not become hypoxic. Chest x-ray is negative. I am wondering if his oxygen saturations either could be secondary to his positioning that he had in his residence or perhaps the pulse oximeter there using.. Certainly not hypoxemic here here. He is otherwise at his baseline. Will discharge with follow-up with primary care physician. Departure - Departure Disposition: Home, Routine, Self-Care Clinical Impression: Shortness of breath Condition: Good Instructions: Dyspnea (ED) Additional Instructions: Follow up with primary care physician in 3-4 days for further evaluation. Return emergency depart for increasing shortness of breath, chest pain, or any other concerns. Referrals: NONE *PRIMARY CARE P,. [Primary Care Provider] - As per Instructions
[2018-11-17 00:12] VITALS: BP 100/72
== END 2018-11-17 01:15 | disposition home or self-care (01) ==
DX: R06.02 Shortness of breath (principal); J84.9 Interstitial pulmonary disease, unspecified; G80.9 Cerebral palsy, unspecified; G40.909 Epilepsy, unspecified, not intractable, without status epilepticus; Z99.81 Dependence on supplemental oxygen; Z87.891 Personal history of nicotine dependence; Z87.820 Personal history of traumatic brain injury

== ENCOUNTER 2018-11-17 15:34 | Emergency (ER) | payer OTHER, MEDICAID ==
--- NOTE | 2018-11-17 16:22 | EDPHY ---
H & P Time Seen by Provider: 11/17/18 16:20 HPI/ROS: Chief complaint. Blood in urine HPI. 53-year-old male presents with complaint of blood in urine that he noticed this morning. No fever. No abdominal or flank pain. No urinary frequency or dysuria. He is not sure if subsequent urination has contain blood or not. No similar symptoms previously. No chest pain or shortness of breath. ROS 10 systems were reviewed and negative with the exception of the elements mentioned in the history of present illness Past Medical/Surgical History: Past medical history significant cerebral palsy, thrombocytopenia, dysphagia, seizure disorder, interstitial lung disease, depression, traumatic brain injury Social History: Single, nonsmoker, no alcohol Smoking Status: Former smoker Physical Exam: General Appearance: Alert well-developed male mild distress vital signs are stable. Eyes: Pupils equal and round no pallor or injection. ENT, Mouth: Mucous membranes are moist. Respiratory: There are no retractions, lungs are clear to auscultation. Cardiovascular: Regular rate and rhythm. Gastrointestinal: Abdomen is soft and nontender, no masses, bowel sounds normal. No flank tenderness Neurological: Awake and alert, sensory and motor exams grossly normal. Skin: Warm and dry, no rashes. Musculoskeletal: Neck is supple nontender. Extremities symmetrical, full range of motion. Psychiatric: Patient is oriented X 3, there is no agitation. Constitutional: Initial Vital Signs Temperature (C) 36.3 C 11/17/18 15:39 Heart Rate 89 11/17/18 15:39 Respiratory Rate 16 11/17/18 15:39 Blood Pressure 127/77 H 11/17/18 15:39 O2 Sat (%) 92 11/17/18 15:39 O2 Delivery Mode Nasal Cannula O2 (L/minute) 2.5 Allergies/Adverse Reactions: No Known Allergies Allergy (Verified 11/16/18 22:53) Home Medications: Medication Instructions Recorded Tamsulosin HCl [Flomax 0.4 MG (*)] 0.4 mg PO HS #0 cap 02/12/15 Calcium Citrate W/Vit D [Citracal 2 each PO BID #60 tab 03/06/15 + D] Citalopram Hydrobromide [Celexa] 40 mg PO DAILY #30 tablet 03/06/15 Furosemide [Lasix 20 MG (*)] 10 mg PO DAILY #14 tab 03/06/15 Gabapentin [Neurontin 300 MG (*)] 300 mg PO QID #120 cap 03/06/15 Trolamine Salicylate/Aloe Vera 1 anil TP BID #30 cream.gm. 03/06/15 [Aspercreme 10% Cream] guaiFENesin [Mucinex 600 MG (*)] 600 mg PO BID #60 tab.er 03/06/15 Albuterol [Proventil Neb] 3 ml IH BID 08/08/17 Divalproex ER [Depakote ER 500 MG 1,000 mg PO HS 08/08/17 (*)] Divalproex ER [Depakote ER 500 MG 500 mg PO DAILY 08/08/17 (*)] carBAMazepine [TEGretol (*)] 200 mg PO TID 08/08/17 Herbals/Supplements -Info Only 1 ea PO DAILY 01/19/18 Aspercreme 07/07/18 Cephalexin [Keflex (*)] 500 mg PO TID #21 cap 11/17/18 Medical Decision Making - Diagnostics Imaging Results: Imaging Impressions Abdomen/Pelvis CT 11/17/18 16:53 Impression: 1. No nephrolithiasis or hydronephrosis. 2. Constipation. 3. Bilateral lower lobe chronic interstitial lung disease. Attention: This CT examination is specifically designed to evaluate patients who are clinically suspected of having acute obstructive uropathy. This examination does not use radiographic contrast, and as such, provides only a limited evaluation of the abdomen, pelvis, and retroperitoneum. If there is further clinical suspicion for pathological conditions other than obstructive uropathy, a complete CT evaluation of the abdomen and pelvis utilizing intravenous, oral, and rectal contrast should be considered. Findings and recommendations discussed with Emergency Department physician, Yusuf Ferreira M.D., at 1739 hours, on November 17, 2018. Final report concurs with initial preliminary interpretation. CT abdomen reviewed by me and discussed with Radiology shows no evidence of kidney stone. ED Course/Re-evaluation: Re-evaluation 6:15 p.m.. Patient and I discussed imaging and lab results. We discussed treatment plan including criteria for return importance of follow-up and further evaluation. He expresses understanding and agreement Differential Diagnosis: I considered uti, kidney stone. - Data Points Laboratory Results: Laboratory Results 11/17/18 16:20 11/17/18 16:20 11/17/18 11/17/1819 16:34 16:20 16:20 WBC 6.78 10^3/uL 10^3/uL (3.80-9.50) RBC 4.66 10^6/uL 10^6/uL (4.40-6.38) Hgb 14.5 g/dL g/dL (13.7-17.5) Hct 46.7 % % (40.0-51.0) MCV 100.2 fL H fL (81.5-99.8) MCH 31.1 pg pg (27.9-34.1) MCHC 31.0 g/dL L g/dL (32.4-36.7) RDW 14.2 % % (11.5-15.2) Plt Count 111 10^3/uL L 10^3/uL (150-400) MPV 12.5 fL H fL (8.7-11.7) Neut % (Auto) 49.0 % % (39.3-74.2) Lymph % (Auto) 32.9 % % (15.0-45.0) [place] % (Auto) 16.4 % H % (4.5-13.0) Eos % (Auto) 0.7 % % (0.6-7.6) Baso % (Auto) 0.6 % % (0.3-1.7) Nucleat RBC Rel Count 0.0 % % (0.0-0.2) Absolute Neuts (auto) 3.32 10^3/uL 10^3/uL (1.70-6.50) Absolute Lymphs (auto) 2.23 10^3/uL 10^3/uL (1.00-3.00) Absolute Monos (auto) 1.11 10^3/uL H 10^3/uL (0.30-0.80) Absolute Eos (auto) 0.05 10^3/uL 10^3/uL (0.03-0.40) Absolute Basos (auto) 0.04 10^3/uL 10^3/uL (0.02-0.10) Absolute Nucleated RBC 0.00 10^3/uL 10^3/uL (0-0.01) Immature Gran % 0.4 % % (0.0-1.1) Immature Gran # 0.03 10^3/uL 10^3/uL (0.00-0.10) Sodium 143 mEq/L mEq/L (135-145) Potassium 4.4 mEq/L mEq/L (3.5-5.2) Chloride 99 mEq/L mEq/L (97-110) Carbon Dioxide 38 mEq/l H mEq/l (22-31) Anion Gap 6 mEq/L mEq/L (6-14) BUN 20 mg/dL mg/dL (7-23) Creatinine 0.7 mg/dL mg/dL (0.7-1.3) Estimated GFR > 60 Glucose 54 mg/dL L mg/dL (70-100) Calcium 9.5 mg/dL mg/dL (8.5-10.4) Urine Color YELLOW Urine Appearance CLEAR Urine pH 6.0 (5.0-7.5) Ur Specific [place] 1.023 (1.002-1.030) Urine Protein NEGATIVE (NEGATIVE) Urine Ketones NEGATIVE (NEGATIVE) Urine Blood 1+ H (NEGATIVE) Urine Nitrate NEGATIVE (NEGATIVE) Urine Bilirubin NEGATIVE (NEGATIVE) Urine Urobilinogen NEGATIVE EU EU (0.2-1.0) Ur Leukocyte Esterase NEGATIVE (NEGATIVE) Urine RBC 50-182 /hpf H /hpf (0-3) Urine WBC 3-5 /hpf H /hpf (0-3) Ur Epithelial Cells TRACE /lpf /lpf (NONE-1+) Urine Mucus TRACE /lpf /lpf (NONE-1+) Urine Glucose NEGATIVE (NEGATIVE) Departure - Departure Disposition: Home, Routine, Self-Care Clinical Impression: Hematuria Qualifiers: Hematuria type: asymptomatic microscopic Qualified Code(s): R31.21 - Asymptomatic microscopic hematuria Condition: Good Instructions: Hematuria (ED) Additional Instructions: drink plenty of fluids and stay hydrated. Cephalexin as antibiotic Return for worsening blood in urine, fever, pain Keep your follow-up appointment tomorrow. Follow-up with Urology for continuing symptoms Referrals: NONE *PRIMARY CARE P,. [Primary Care Provider] - As per Instructions Heath Devlin MD [Medical Doctor] - 5-7 days, call for appt. Prescriptions: Cephalexin [Keflex (*)] 500 mg PO TID #21 cap
[2018-11-17 16:42] LABS: PLATELET COUNT 111 10^3/uL (150-400)
[2018-11-17 18:36] VITALS: BP 127/87
== END 2018-11-17 18:42 | disposition home or self-care (01) ==
DX: R31.21 Asymptomatic microscopic hematuria (principal); J84.9 Interstitial pulmonary disease, unspecified; K59.00 Constipation, unspecified; Z87.891 Personal history of nicotine dependence

== ENCOUNTER 2018-11-20 17:38 | Emergency (ER) | payer OTHER, MEDICAID ==
[2018-11-20] MEDS ORDERED: IPRATROPIUM/ALBUTEROL 3 ML DEYVIAL IH ONE (19:02)
--- NOTE | 2018-11-20 19:04 | EDPHY ---
H & P Stated Complaint: low oxygen noted from facility care staff fatigue Time Seen by Provider: 11/20/18 18:45 HPI/ROS: CHIEF COMPLAINT: Hypoxia HISTORY OF PRESENT ILLNESS: 53-year-old male with cerebral palsy and oxygen- dependent interstitial lung disease presents with hypoxia. He is usually on 2 L of oxygen by nasal cannula. Today, his caregivers noticed an increased oxygen requirement. The patient denies recent illness, cough or fever. He is asymptomatic and denies shortness of breath or chest pain. REVIEW OF SYSTEMS: complete 10 point ROS reviewed and is negative except for the noted elements in the HPI - Personal History Tetanus Vaccine Date: 2012 - Medical/Surgical History Hx Asthma: No Hx Chronic Respiratory Disease: Yes Hx Diabetes: No Hx Cardiac Disease: No Hx Renal Disease: No Hx Cirrhosis: No Hx Alcoholism: No Hx HIV/AIDS: No Hx Splenectomy or Spleen Trauma: No Other PMH: Cerebral palsy, thrombocytopenia, dysphagia, seizure disorder, interstitial lung disease, on home oxygen, depression, traumatic brain injury - Social History Smoking Status: Former smoker Alcohol Use: None Drug Use: None - Physical Exam Exam: General Appearance: Alert, pleasant Eyes: Pupils equal and round, no conjunctival pallor or injection ENT, Mouth: Mucous membranes moist Neck: Normal inspection Respiratory: Scattered expiratory wheezing Cardiovascular: Regular rate and rhythm Gastrointestinal: Abdomen is soft and nontender Neurological: Alert, answers questions appropriately, right sided weakness Skin: Warm and dry Extremities: Normal inspection Psychiatric: Mood and affect normal Constitutional: Initial Vital Signs Temperature (C) 36.5 C 11/20/18 17:49 Heart Rate 95 11/20/18 17:49 Respiratory Rate 22 H 11/20/18 17:49 Blood Pressure 144/109 H 11/20/18 17:49 O2 Sat (%) 93 11/20/18 17:49 O2 Delivery Mode Nasal Cannula O2 (L/minute) 3 Allergies/Adverse Reactions: No Known Allergies Allergy (Verified 11/16/18 22:53) Home Medications: Medication Instructions Recorded Tamsulosin HCl [Flomax 0.4 MG (*)] 0.4 mg PO HS #0 cap 02/12/15 Calcium Citrate W/Vit D [Citracal 2 each PO BID #60 tab 03/06/15 + D] Citalopram Hydrobromide [Celexa] 40 mg PO DAILY #30 tablet 03/06/15 Furosemide [Lasix 20 MG (*)] 10 mg PO DAILY #14 tab 03/06/15 Gabapentin [Neurontin 300 MG (*)] 300 mg PO QID #120 cap 03/06/15 Trolamine Salicylate/Aloe Vera 1 anil TP BID #30 cream.gm. 03/06/15 [Aspercreme 10% Cream] guaiFENesin [Mucinex 600 MG (*)] 600 mg PO BID #60 tab.er 03/06/15 Albuterol [Proventil Neb] 3 ml IH BID 08/08/17 Divalproex ER [Depakote ER 500 MG 1,000 mg PO HS 08/08/17 (*)] Divalproex ER [Depakote ER 500 MG 500 mg PO DAILY 08/08/17 (*)] carBAMazepine [TEGretol (*)] 200 mg PO TID 08/08/17 Herbals/Supplements -Info Only 1 ea PO DAILY 01/19/18 Aspercreme 07/07/18 Cephalexin [Keflex (*)] 500 mg PO TID #21 cap 11/17/18 Medical Decision Making - Diagnostics Imaging Results: Imaging Impressions Chest X-Ray 11/20/18 18:45 Impression: Diffuse interstitial lung disease with no definite superimposed acute abnormality identified and no significant change from the recent prior study. Imaging: I viewed and interpreted images myself ED Course/Re-evaluation: This patient presents with increased oxygen requirement. On physical exam, he has scattered wheezing. A DuoNeb was given. He was placed on oxygen 2 L by nasal cannula and his oxygen saturation is currently 94%. Chest x-ray ordered. He is not ill appearing and I do not suspect pneumonia in this patient. Chest x-ray reveals diffuse interstitial lung disease, similar to old chest x- ray. Lung exam after DuoNeb reveals decreased wheezing and good air exchange. Oxygen saturation is 94% on 3 L of oxygen by nasal cannula. This is the patient 's baseline. There is no evidence of hypoxia. The patient is a mouth breather and certainly may benefit from oxygen delivery to his mouth. Differential Diagnosis: Differential diagnosis includes though it is not limited to pneumonia, pneumothorax, pulmonary embolism, aortic dissection, pericarditis, acute coronary syndrome. - Data Points Medications Given: Discontinued Medications Albuterol/Ipratropium (Duoneb) 3 ml IH EDNOW ONE Stop: 11/20/18 19:03 Last Admin: 11/20/18 19:23 Dose: 3 ml Departure - Departure Disposition: Home, Routine, Self-Care Clinical Impression: Interstitial lung disease Condition: Good Instructions: Chronic Lung Disease and Infection Prevention (ED) Additional Instructions: Return for fever, cough or shortness of breath. Referrals: [facility] WEINER [Other] - As per Instructions
[2018-11-20 20:38] VITALS: BP 103/76
--- NOTE | 2018-11-20 21:38 | CPEKG ---
Test Reason : OPEN Blood Pressure : / mmHG Vent. Rate : 083 BPM Atrial Rate : 082 BPM P-R Int : 133 ms QRS Dur : 081 ms QT Int : 347 ms P-R-T Axes : 017 085 001 degrees QTc Int : 408 ms Sinus rhythm T wave inversions V2-V4, similar to prior EKG Confirmed by Beatriz Serra ([id number]) on 11/20/2018 9:38:07 PM Referred By: BEATRIZ SERRA Confirmed By:Beatriz Serra
== END 2018-11-20 21:13 | disposition home or self-care (01) ==
DX: J84.9 Interstitial pulmonary disease, unspecified (principal); G80.9 Cerebral palsy, unspecified; Z99.81 Dependence on supplemental oxygen

== ENCOUNTER 2018-11-21 16:34 | Inpatient (IN) | payer OTHER, MEDICAID ==
[2018-11-21] MEDS ORDERED: NS 1,000 ML IV ONE ×2 (17:11→17:48)
[2018-11-21] MEDS ORDERED: IPRATROPIUM/ALBUTEROL 3 ML DEYVIAL IH ONE (17:46)
[2018-11-21] MEDS ORDERED: methylPREDNISolone SOD SUCC 125 MG/2 ML VIAL IVP ONE (17:46)
[2018-11-21] MEDS ORDERED: ALBUTEROL 3 ML DEYVIAL IH ONE (17:47)
[2018-11-21] MEDS ORDERED: AMPICILLIN/SULBACTAM 3 GM in NS 100 ML IV ONE (17:48)
[2018-11-21] MEDS ORDERED: ACETAMINOPHEN 325 MG TAB PO ONE (17:49)
--- NOTE | 2018-11-21 17:52 | EDPHY ---
H & P Stated Complaint: tx for urinary inf/now with sob/hypoxia fever and hypotension Time Seen by Provider: 11/21/18 17:03 HPI/ROS: CHIEF COMPLAINT: Fever, shortness of breath Limitations: pt unable to provide much history; HPI through pt's caregiver HISTORY OF PRESENT ILLNESS: 53-year-old male with cerebral palsy and oxygen- dependent interstitial lung disease presents with fever and shortness of breath. Onset of moderate shortness of breath this morning, associated with fever and cough. Cough moist and frequent. Oxygen saturation in mid 80's, on usual 2-3 liters by NC. Has a home nebulizer, not used today. More sleepy than usual today. No oral intake this morning. Seen yesterday in this emergency department by me. Oxygen saturation was normal and chest x-ray was unchanged at that time. REVIEW OF SYSTEMS: unable to reliably determine - Personal History Current Tetanus Diphtheria and Acellular Pertussis (TDAP): Yes Tetanus Vaccine Date: 2012 - Medical/Surgical History Hx Asthma: No Hx Chronic Respiratory Disease: Yes Hx Diabetes: No Hx Cardiac Disease: No Hx Renal Disease: No Hx Cirrhosis: No Hx Alcoholism: No Hx HIV/AIDS: No Hx Splenectomy or Spleen Trauma: No Other PMH: Cerebral palsy, thrombocytopenia, dysphagia, seizure disorder, interstitial lung disease, on home oxygen, depression, traumatic brain injury - Social History Smoking Status: Former smoker Alcohol Use: None Drug Use: None - Physical Exam Exam: General Appearance: drowsy, opens eyes to voice, answers a few questions, ill- appearing Eyes: Pupils equal and round, no conjunctival pallor ENT, Mouth: Mucous membranes moist Neck: Normal inspection Respiratory: Tachypneic, diffuse inspiratory and expiratory wheezing Cardiovascular: Regular rate and rhythm Gastrointestinal: Abdomen is soft Neurological: drowsy, left hemiparesis Skin: Warm and dry Extremities: No swelling Psychiatric: Flat affect Constitutional: Initial Vital Signs Temperature (C) 38.2 C 11/21/18 16:52 Heart Rate 112 H 11/21/18 16:52 Respiratory Rate 26 H 11/21/18 16:52 Blood Pressure 80/70 L 11/21/18 16:52 O2 Sat (%) 87 L 11/21/18 16:52 O2 Delivery Mode Oxymask O2 (L/minute) 7 Allergies/Adverse Reactions: No Known Allergies Allergy (Verified 11/21/18 20:37) Home Medications: Medication Instructions Recorded Tamsulosin HCl [Flomax 0.4 MG (*)] 0.4 mg PO HS #0 cap 02/12/15 Calcium Citrate W/Vit D [Citracal 2 each PO BID #60 tab 03/06/15 + D] Citalopram Hydrobromide [Celexa] 40 mg PO DAILY #30 tablet 03/06/15 Furosemide [Lasix 20 MG (*)] 10 mg PO DAILY #14 tab 03/06/15 Gabapentin [Neurontin 300 MG (*)] 300 mg PO QID #120 cap 03/06/15 Trolamine Salicylate/Aloe Vera 1 anil TP BID #30 cream.gm. 03/06/15 [Aspercreme 10% Cream] guaiFENesin [Mucinex 600 MG (*)] 600 mg PO BID #60 tab.er 03/06/15 Divalproex ER [Depakote ER 500 MG 1,000 mg PO HS 08/08/17 (*)] Divalproex ER [Depakote ER 500 MG 500 mg PO DAILY 08/08/17 (*)] carBAMazepine [TEGretol (*)] 200 mg PO TID 08/08/17 Herbals/Supplements -Info Only 2 ea PO TIDMEAL 01/19/18 Cephalexin [Keflex (*)] 500 mg PO TID #21 cap 11/17/18 Acetaminophen [Tylenol 325mg (*)] 325 mg PO Q6H PRN 11/21/18 Albuterol [Ventolin Hfa Inhaler] 2 puffs IH BID 11/21/18 Budesonide 0.5MG/2Ml Neb (*) 2 ml NEB DAILY 11/21/18 Methylcellulose [Citrucel] 500 mg PO BID 11/21/18 Polyethylene Glycol 3350 [Miralax 17 gm PO DAILY PRN 11/21/18 17 gm (*)] Medical Decision Making - Diagnostics Imaging Results: Chest X-Ray 11/21/18 17:10 Impression: Acute consolidation superimposed upon underlying chronic lung disease. Suspect pneumonia and/or mucous plugging. Imaging: I viewed and interpreted images myself ED Course/Re-evaluation: This patient presents with cough, fever and shortness of breath. On exam he has diffuse bronchospasm. A DuoNeb followed by a continuous albuterol neb given. Solu-Medrol 125 mg IV. Chest x-ray reviewed by me and reveals a rt sided infiltrate. Strong clinical suspicion for aspiration pneumonia. Unasyn IV given after blood cultures drawn. The hospitalist service was consulted for admission. Will admit to PCU. Meets SIRS criteria, lactate normal. IV NS 1 liter given. Review of this patient's past medical record, he had a previous admission for aspiration pneumonia and required BiPAP. Will require close monitoring. ABG drawn to evaluate respiratory status and reveals hypercarbia, weaning oxygen as tolerated. Now on O2 4l NC. Lungs: improved air exchange and decreased wheezing. 2030: Influenza A positive. Tamiflu 75 mg orally given. Differential Diagnosis: Differential diagnosis includes though it is not limited to influenza, pneumonia , pneumothorax, pulmonary embolism. - Data Points Laboratory Results: Laboratory Results 11/21/18 17:50 11/21/18 17:50 Microbiology Results: MICROBIOLOGY 11/21/18 18:18 Nasal, Sinus - Swab Respiratory Panel (PCR) - Final Influenza Virus Type A 2008 H1 Medications Given: Albuterol/Ipratropium (Duoneb) 3 ml IH Q6 [facility] Stop: 05/21/19 00:00 Last Admin: 11/22/18 20:29 Dose: 3 ml Budesonide (Budesonide 0.5mg/2ml Neb) 0.5 mg IH DAILY [facility]LELY Stop: 05/21/19 08:59 Last Admin: 11/22/18 10:10 Dose: 0.5 mg Carbamazepine (Tegretol) 200 mg PO TID [facility] Stop: 05/20/19 21:59 Last Admin: 11/22/18 14:56 Dose: Not Given Citalopram Hydrobromide (Celexa) 40 mg PO DAILY [facility] Stop: 05/21/19 08:59 Last Admin: 11/22/18 13:33 Dose: Not Given Divalproex Sodium (Depakote Er) 500 mg PO DAILY [facility] Stop: 05/21/19 08:59 Last Admin: 11/22/18 13:34 Dose: Not Given Enoxaparin Sodium (Lovenox) 40 mg SC DAILY [facility] Stop: 05/21/19 08:59 Last Admin: 11/22/18 13:25 Dose: 40 mg Furosemide (Lasix) 10 mg PO DAILY [facility] Stop: 05/21/19 08:59 Last Admin: 11/22/18 13:34 Dose: Not Given Gabapentin (Neurontin) 300 mg PO QID [facility] Stop: 05/21/19 05:59 Last Admin: 11/22/18 14:56 Dose: Not Given Guaifenesin (Mucinex) 600 mg PO BID [facility] Stop: 05/21/19 08:59 Last Admin: 11/22/18 13:34 Dose: Not Given Guar Gum (Benefiber/Nutrisource Fiber) 1 each PO BID [facility] Stop: 05/20/19 21:59 Last Admin: 11/22/18 13:34 Dose: Not Given Ampicillin Sodium/Sulbactam (Sodium 3 gm/ Sodium Chloride) 100 mls @ 200 mls/ hr IV Q6HRS [facility]LEY PRN Reason: Protocol Stop: 12/22/18 00:00 Last Admin: 11/22/18 17:53 Dose: 100 mls Sodium Chloride (Ns) 1,000 mls @ 100 mls/hr IV CONT [facility] Stop: 05/20/19 21:44 Last Admin: 11/22/18 17:53 Dose: 1,000 mls Methylprednisolone Sodium Succinate (Solu-Medrol) 60 mg IVP Q6HRS [facility] Stop: 05/21/19 00:00 Last Admin: 11/22/18 17:52 Dose: 60 mg Oseltamivir Phosphate (Tamiflu) 75 mg PO BIDMEAL [facility] Stop: 11/26/18 18:01 Last Admin: 11/22/18 17:48 Dose: Not Given Trolamine Salicylate (Aspercreme) 1 anil TP BID [facility] Stop: 05/21/19 08:59 Last Admin: 11/22/18 13:34 Dose: 1 anil Discontinued Medications Acetaminophen (Tylenol) 650 mg PO EDNOW ONE Stop: 11/21/18 17:50 Last Admin: 11/21/18 17:57 Dose: 650 mg Albuterol (Proventil Neb) 9 ml IH EDNOW ONE Stop: 11/21/18 17:48 Last Admin: 11/21/18 18:24 Dose: 9 ml Albuterol/Ipratropium (Duoneb) 3 ml IH EDNOW ONE Stop: 11/21/18 17:47 Last Admin: 11/21/18 18:25 Dose: 3 ml Furosemide (Lasix Injection) 20 mg IVP ONCE ONE Stop: 11/22/18 16:35 Last Admin: 11/22/18 16:51 Dose: 20 mg Sodium Chloride (Ns) 1,000 mls @ 0 mls/hr IV ONCE ONE; Wide Open PRN Reason: Protocol Stop: 11/21/18 17:12 Last Admin: 11/21/18 18:00 Dose: 1,000 mls Ampicillin Sodium/Sulbactam (Sodium 3 gm/ Sodium Chloride) 100 mls @ 200 mls/ hr IV EDNOW ONE PRN Reason: Protocol Stop: 11/21/18 18:17 Last Admin: 11/21/18 19:46 Dose: 100 mls Sodium Chloride (Ns) 1,000 mls @ 0 mls/hr IV ONCE ONE; Wide Open PRN Reason: Protocol Stop: 11/21/18 17:49 Last Admin: 11/21/18 19:46 Dose: 1,000 mls Methylprednisolone Sodium Succinate (Solu-Medrol) 125 mg IVP EDNOW ONE Stop: 11/21/18 17:47 Last Admin: 11/21/18 17:57 Dose: 125 mg Oseltamivir Phosphate (Tamiflu) 75 mg PO EDNOW ONE Stop: 11/22/18 20:34 Last Admin: 11/21/18 21:35 Dose: 75 mg Departure - Departure Disposition: [facility] Clinical Impression: Influenza A, Chronic obstructive pulmonary disease with acute exacerbation Condition: Serious
[2018-11-21 18:05] LABS: PLATELET COUNT 108 10^3/uL (150-400)
[2018-11-21] MEDS ORDERED: OSELTAMIVIR PHOSPHATE 75 MG CAP ONE (21:34)
[2018-11-21] MEDS ORDERED: POLYETHYLENE GLYCOL 3350 17 GM PKT PO PRN (21:41)
[2018-11-21] MEDS ORDERED: PROMETHAZINE HCL 25 MG/ML INJ IVP PRN (21:44)
[2018-11-21] MEDS ORDERED: ONDANSETRON 4 MG/2 ML VIAL IVP PRN (21:44)
[2018-11-21] MEDS ORDERED: ACETAMINOPHEN 325 MG TAB PO PRN (21:44)
--- NOTE | 2018-11-21 22:32 | GHP ---
[f rep st] HISTORY AND PHYSICAL DATE OF ADMISSION: 11/21/2018 CHIEF COMPLAINT: Shortness of breath. HISTORY: Jason is a 53-year-old male with developmental delay due to cerebral palsy. Lives in [facility] [place]. Sent in today for a fever and increased shortness of breath. He has been coughing. No f urther history is available at this time as the patient is minimally arousable and in significant res piratory distress at the time of my visit. He is not answering any questions. PAST MEDICAL HISTORY: 1. Recurrent aspiration pneumonias. 2. Traumatic cerebral palsy with developmental delay. 3. Traumatic brain injury with left hemiparesis. 4. Seizure disorder. 5. Interstitial lung disease secondary to chronic aspiration. 6. Chronic respiratory failure. Baseline O2 unknown. MEDICATIONS: Please see computerized record for full detailed list. ALLERGIES: No known drug allergies. SOCIAL HISTORY: No smoking. No alcohol. Per the records he lives in [place] [place]. It appears, pe r [facility] [place] documentation, his baseline is quite interactive. REVIEW OF SYSTEMS: The review of systems is unobtainable due to patient's altered mental status. FAMILY HISTORY: Also unobtainable due to patient's altered mental status. PHYSICAL EXAMINATION: VITALS: Temperature is 38.5, pulse 120, blood pressure 80/70, respirations 40 , saturating 92% on 7 L. GENERAL: This is a well-developed, well-nourished male, minimally responsi ve, breathing very heavily. Increased work of breathing. Hard to arouse. EYES: Normal conjunctivae . Pupils react to light. ENT: Normal ears and nose. Hearing intact. Normal teeth. Oropharynx dr y. NECK: Trachea midline. No thyromegaly. CHEST: Increased respiratory effort. Lungs sound terr ible. Rales, rhonchi, and wheezes heard throughout. He is very tight. CARDIOVASCULAR SYSTEM: Tach ycardic. No murmur. No lower extremity edema. ABDOMEN: Soft, nontender. No hepatosplenomegaly. SKIN: Warm, dry, intact. No rash. MUSCULOSKELETAL: No cyanosis or clubbing. Unable to assess str ength due to patient being unresponsive, not moving any extremities. NEUROLOGIC: Cranial nerves unab le to assess. Sensation unable to assess. PSYCHIATRIC ASSESSMENT: He is altered, difficult to arou se, breathing heavily, unable to give any history. LABORATORIES: 10.34, hematocrit 47.3, platelets 108. Sodium 142, potassium 4.6, chloride 94, bicarb 40, BUN 21, creatinine 0.7, glucose 115, lactate is 1.1. ABG shows a pH of 7.35, pCO2 of 65, PO2 of 55, bicarb 37. Chest x-ray shows a significant right mid lung consolidation. This case was discuss ed with Dr. Keysha Rachel in the emergency room regarding ER course. ASSESSMENT AND PLAN: 1. Acute respiratory failure. The patient has increased, severe work of breathing. Oxygen is now u p to 7 L. Plan is to admit to stepdown. Etiology of respiratory failure will be detailed below. 2. Influenza A. The patient will be placed on isolation and given Tamiflu. 3. Reactive airways disease exacerbation. Will prescribe intravenous steroids and nebulizers. 4. Pneumonia, suspect aspiration. Intravenous Unasyn for antibiotic. Will keep him n.p.o. until sp eech therapy for swallow. 5. Hypotension. Blood pressure 80/70 on presentation. This has responded to an intravenous fluid octavio linda. He will be monitored closely. 6. Metabolic encephalopathy. He is minimally arousable. This is not his baseline. I think this is due to excessive metabolic conditions as discussed above. 7. Interstitial lung disease secondary to chronic aspiration with chronic respiratory failure. Base line oxygen requirement is unknown. 8. Cerebral palsy with developmental delay, as well as traumatic brain injury with a left hemiparesi s. He lives in [facility]. Review of chart reveals Palliative Care has seen him in the past. Th ere was some talk of comfort measures. We will reconsult Palliative Care. 9. Seizure disorder. Continue Tegretol and Depakote. CODE STATUS: Full until this can be further clarified. If it becomes an imminent issue this evening , we can try to reach the medical power of document review attorney. ADMISSION STATUS: Will admit to inpatient as he is critically ill on presentation. DEEP VEIN THROMBOSIS PROPHYLAXIS: High risk. Will place him on subcu Lovenox. CRITICAL CARE TIME SPENT: 45 minutes. /[id number]/MODL
[2018-11-21] MEDS: BENEFIBER/NUTRISOURCE FIBER PKT 1 EACH PO SCH (22:54)
[2018-11-21] MEDS: CARBAMAZEPINE 100 MG CHEWABLE TAB PO SCH (23:12)
[2018-11-21] MEDS: methylPREDNISolone SOD SUCC 125 MG/2 ML VIAL IVP SCH (23:14)
[2018-11-22] MEDS: AMPICILLIN/SULBACTAM 3 GM in NS 100 ML IV SCH ×5 (00:17→23:45)
[2018-11-22] MEDS: IPRATROPIUM/ALBUTEROL 3 ML DEYVIAL IH SCH ×5 (00:38→20:29)
[2018-11-22] MEDS: GABAPENTIN 300 MG CAP PO SCH ×4 (05:52→21:38)
[2018-11-22] MEDS: methylPREDNISolone SOD SUCC 125 MG/2 ML VIAL IVP SCH ×4 (05:52→23:45)
[2018-11-22] MEDS: NS 1,000 ML IV SCH ×2 (08:48→17:53)
[2018-11-22] MEDS: BUDESONIDE 0.5 MG/2 ML AMPUL.NEB IH SCH (10:10)
--- NOTE | 2018-11-22 10:57 | PDMN ---
Medical Necessity Medical necessity: [facility] [place] Aspiration Pneumonia, 3 days: 53 yo developmentally disabled pt 2nd cerebral palsy presents w/ fever and SOB. Eval reveals + Influenza A, aspiration PNA in acute resp fx w/ increased, severe WOB, O2 at 7L to maintain sats>90%. Pt minimally arousable which is not his baseline. Pt is hypotensive, tachypneac and tachycardic. IVF, IV antibx and nebs started. Admit IP status, anticipate>2MN for ongoing management/tx of the above. Hx recurrent asp PNA, CP as above, TBI w/ L hemiparesis, seizure d/o, ILD 2nd chronic aspiration, chronic resp fx w/ unknown baseline O2.
--- NOTE | 2018-11-22 13:10 | ASMTCMCOM ---
CM Note CM Note Notes: Patient admitted with ARF and RAD exacerbation, likely related to PNA and Influenza A infections. He has a hx of CP w developmental delay and lives at the [facility] home where is dependent for most cares. Per PT eval, patient is normally able to transfer to and from his power chair with minimum to moderate assist and can reposition himself independently when supine. He is currently quite lethargic and unable to fully participate. PT will continue to see. A palliative care consult has also been ordered. Case Management will follow. Date Signed: 11/22/2018 01:06 PM Electronically Signed By:Yessi Shelton RN
[2018-11-22] MEDS: ENOXAPARIN 40 MG/0.4 ML SYR SC SCH (13:25)
[2018-11-22] MEDS: OSELTAMIVIR PHOSPHATE 75 MG CAP PO SCH ×2 (13:33→17:48)
[2018-11-22] MEDS: CITALOPRAM 20 MG TAB PO SCH (13:33)
[2018-11-22] MEDS: CARBAMAZEPINE 100 MG CHEWABLE TAB PO SCH ×3 (13:33→21:39)
[2018-11-22] MEDS: BENEFIBER/NUTRISOURCE FIBER PKT 1 EACH PO SCH ×2 (13:34→21:38)
[2018-11-22] MEDS: TROLAMINE SALICYLATE 85 GM CRTUBE TP SCH ×2 (13:34→21:39)
[2018-11-22] MEDS: guaiFENesin 600 MG TAB.ER PO SCH ×2 (13:34→21:38)
[2018-11-22] MEDS: DIVALPROEX ER 500 MG TAB PO SCH ×2 (13:34→21:38)
[2018-11-22] MEDS: FUROSEMIDE 20 MG TAB PO SCH (13:34)
--- NOTE | 2018-11-22 15:34 | HOSPPROG ---
Hospitalist Progress Note Assessment/Plan: 1. Acute Respiratory Failure - Increased WOB on admission - Initially on 7L 02, decreased to 2L this AM - 2/2 to Influenza as below - Wean 02 as tolerated 2. Influenza A - Positive on admission, etiology of ARF as above - Started on Tamiflu, continue for total 5 day course when able to tolerate PO 3. Reactive Airways Ds Exacerbation - S/p 125 mg IV Solumedrol in ED - Continue on 60 mg IV Methylpred q6 hours, transition to PO Prednisone when able to tolerate PO - Continue nebs 4. PNA - R sided infiltrate seen on CXR on admission - S/p Unasun in ED, will continue for now - Keep NPO for now, speech and swallow consult placed 5. Hypotension - Initial BP 80/70, improved to 110/70 this AM s/p IVF - In setting of PNA, Flu as above - Continue to monitor, IVF PRN 6. Metabolic Encephalopathy - Minimally arousable on exam, not baseline per family - In setting of infections as above - Continue to monitor 7. ILD - 2/2 to Chronic Aspiration and Chronic RF - Baseline 02 needs unknown - Steroids and nebs as above for exacerbation 8. CP with Developmental Delay - As well as TBI w/ L sided hemiparesis - Lives at [facility] - Palliative care has been consulted in the past, I discussed goals of care with uncle this morning who confirms patient is DNR but would like to continue current management of infections with abx and antivirals 9. Seizure D/o - Continue home medications when able to tolerate PO - if not able to tolerate by tomorrow AM, will place NGT and give medications FEN: IVF, NPO DVT PPx: Lovenox Code: DNR, confirmed with uncle this AM Dispo: Pending clinical course Subjective: Patient minimally responsive this AM Objective: Vital Signs Temp Pulse Resp BP Pulse Ox 36.4 C 72 28 H 106/73 98 11/22/18 15:18 11/22/18 15:18 11/22/18 15:18 11/22/18 15:18 11/22/18 15:18 11/21/18 11/22/18 11/23/18 05:59 05:59 05:59 Intake Total 2150 1055 Output Total 300 Balance 1850 1055 - Physical Exam Constitutional: chronically ill appearing, uncomfortable Eyes: PERRL Ears, Nose, Mouth, Throat: moist mucous membranes Cardiovascular: regular rate and rhythym Respiratory: reduced air movement Gastrointestinal: soft, non-tender abdomen Musculoskeletal: No full muscle strength Neurologic: No AAOx3 Psychiatric: No interacting appropriately ICD10 Worksheet Patient Problems: Problems Problem Status Onset Chronic obstructive pulmonary disease with acute exacerbation Acute Influenza A Acute Aspiration pneumonia Acute Cough Acute Hemorrhoid Acute Hypoxemia Acute Rectal bleeding Acute
[2018-11-22] MEDS ORDERED: LORazepam 2 MG/ML INJ IVP PRN (16:18)
[2018-11-22] MEDS ORDERED: FUROSEMIDE 20 MG/2 ML VIAL IVP ONE (16:34)
[2018-11-22] MEDS ORDERED: OSELTAMIVIR PHOSPHATE 75 MG CAP PO ONE (20:33)
[2018-11-22] MEDS: TAMSULOSIN HCL 0.4 MG CAP PO SCH (21:39)
[2018-11-23 04:25] LABS: PLATELET COUNT 84 10^3/uL (150-400)
[2018-11-23] MEDS: NS 1,000 ML IV SCH (04:58)
[2018-11-23] MEDS: AMPICILLIN/SULBACTAM 3 GM in NS 100 ML IV SCH ×4 (05:30→23:57)
[2018-11-23] MEDS: GABAPENTIN 300 MG CAP PO SCH ×4 (05:30→20:19)
[2018-11-23] MEDS: methylPREDNISolone SOD SUCC 125 MG/2 ML VIAL IVP SCH ×4 (05:30→23:56)
[2018-11-23] MEDS: IPRATROPIUM/ALBUTEROL 3 ML DEYVIAL IH SCH ×4 (05:33→20:14)
[2018-11-23] MEDS: BUDESONIDE 0.5 MG/2 ML AMPUL.NEB IH SCH (08:36)
[2018-11-23] MEDS: ENOXAPARIN 40 MG/0.4 ML SYR SC SCH (09:55)
[2018-11-23] MEDS: DIVALPROEX ER 500 MG TAB PO SCH ×2 (11:30→20:19)
[2018-11-23] MEDS: OSELTAMIVIR PHOSPHATE 75 MG CAP PO SCH ×2 (11:30→17:10)
[2018-11-23] MEDS: FUROSEMIDE 20 MG TAB PO SCH (11:31)
[2018-11-23] MEDS: CITALOPRAM 20 MG TAB PO SCH (11:31)
[2018-11-23] MEDS: guaiFENesin 600 MG TAB.ER PO SCH ×2 (11:31→20:19)
[2018-11-23] MEDS: TROLAMINE SALICYLATE 85 GM CRTUBE TP SCH (11:32)
[2018-11-23] MEDS: CARBAMAZEPINE 100 MG CHEWABLE TAB PO SCH ×3 (11:34→20:19)
[2018-11-23] MEDS: BENEFIBER/NUTRISOURCE FIBER PKT 1 EACH PO SCH ×2 (11:34→21:42)
--- NOTE | 2018-11-23 13:09 | HOSPPROG ---
Hospitalist Progress Note Assessment/Plan: 1. Acute Respiratory Failure - Increased WOB on admission - Initially on 7L 02 - 2/2 to Influenza as below - Wean 02 as tolerated 2. Influenza A - Positive on admission, etiology of ARF as above - Started on Tamiflu, continue for total 5 day course 3. Reactive Airways Ds Exacerbation - S/p 125 mg IV Solumedrol in ED - Continue on 60 mg IV Methylpred q6 hours for now - Continue nebs 4. PNA - R sided infiltrate seen on CXR on admission - S/p Unasyn in ED, will continue for now - Cleared by speech and swallow this AM 5. Hypotension - Initial BP 80/70, improved this AM s/p IVF - In setting of PNA, Flu as above - Continue to monitor, IVF PRN 6. Metabolic Encephalopathy - Improving this AM, not at baseline yet - In setting of infections as above - Continue to monitor 7. ILD - 2/2 to Chronic Aspiration and Chronic RF - Baseline 02 needs unknown - Steroids and nebs as above for exacerbation 8. CP with Developmental Delay - As well as TBI w/ L sided hemiparesis - Lives at [facility] - Palliative care has been consulted in the past, I discussed goals of care with uncle on 11/22 who confirms patient is DNR but would like to continue current management of infections with abx and antivirals 9. Seizure D/o - Continue home medications FEN: IVF, NPO DVT PPx: Lovenox Code: DNR, confirmed with uncle Dispo: Pending clinical course Subjective: Patient reports SOB this AM Objective: Vital Signs Temp Pulse Resp BP Pulse Ox 36.6 C 59 L 18 105/66 99 11/23/18 11:20 11/23/18 11:51 11/23/18 11:51 11/23/18 11:20 11/23/18 11:20 Laboratory Results 11/23/18 03:10 11/23/18 03:10 11/22/18 11/23/18 11/24/18 05:59 05:59 05:59 Intake Total 2150 3203 120 Output Total 300 850 Balance 1850 2353 120 - Physical Exam Constitutional: chronically ill appearing, unkempt Eyes: PERRL Ears, Nose, Mouth, Throat: moist mucous membranes Cardiovascular: regular rate and rhythym Respiratory: reduced air movement, inspiratory crackles Gastrointestinal: soft, non-tender abdomen Skin: warm Neurologic: No AAOx3 Psychiatric: No interacting appropriately ICD10 Worksheet Patient Problems: Problems Problem Status Onset Chronic obstructive pulmonary disease with acute exacerbation Acute Influenza A Acute Aspiration pneumonia Acute Cough Acute Hemorrhoid Acute Hypoxemia Acute Rectal bleeding Acute
--- NOTE | 2018-11-23 14:30 | ASMTCMCOM ---
CM Note CM Note Notes: Per palliative care consult a referral is sent to [facility] for outpatient palliative service. [facility] ([phone]) updated that pt will d/c with outpatient palliative. CM to follow. Date Signed: 11/23/2018 02:30 PM Electronically Signed By:ANATOLIY Rebolledo
--- NOTE | 2018-11-23 17:07 | GCON ---
[f rep st] CONSULTATION PALLIATIVE CARE CONSULTATION DATE OF CONSULTATION: 11/23/2018 REASON FOR CONSULTATION: Followup goals of care discussion. Case discussed with Dr. Alfredo. HISTORY OF PRESENT ILLNESS: The patient is a 53-year-old male with a history of developmental delay due to cerebral palsy, followed later in life by a traumatic brain injury. He is currently admitted to the hospital with influenza A, pneumonia, possible superimposed aspiration, and metabolic encephal opathy superimposed on interstitial lung disease, attributed to chronic aspiration and chronic respir atory failure. Patient is known to me from prior palliative care visits at [facility]. He was seen initially on March 01, 2018, and his second visit, April 15, same year, which included his uncle and [facility]POA, as we ll as staff from [facility]. Our prior conversations were focused on the patient's goals of care. He had been admitted in the [facility] in January for a pneumonia episode, felt to be likely aspiration, and was still feeling some effect s from this hospitalization at our first visit. He has been on chronic aspiration precautions, which is primarily dietary limitations with mechanical soft and honey-thick liquids. At the time of our v isit, he was experiencing no choking or coughing with this diet, but concern still remains for subseq uent events. The patient felt that his quality of life was acceptable with this diet, although his u ncle, voiced his concerns that it may not be an acceptable long-term answer. During both visits, he had no complaints of respiratory distress. Functionally, he was able to walk roughly one block with a gait assistant athletic trainer device; however, he spent most of his time in an electric wheelchair. Of note, he has a left hemiparesis from his prior traumatic brain injury. At that time, he was sleeping in hospital bed with the head elevated roughly 30 degrees and requiring a shower chair and partial assistance fo r bathing. Over the summer, he had no rest dyspnea, but could experience some shortness of breath wi th exertion or while showering and typically experienced some right flank pain while seated on the ower chair, but not in his wheelchair. The staff felt he had been a bit more fatigued since the last hospitalization, but generally was sleeping approximately 10 hours per night. By the time of our se cond visit in April, the patient's functional status had improved a bit further. He was less fatigu ed, more engaged in typical pass times and was able to participate well in our conversation. When we discussed goals of care in detail, the patient was accepting at that time of intubation, even if it could result in tracheostomy placement. He would not want CPR, but would, in fact, accept art ificial nutrition, at least, on a temporary basis. He also was able to vocalize that if there no hop e of meaningful recovery correction support, such as long-term ventilatory support, it would not be ac ceptable. A MOST form was completed to this effect. This MOST form stated: 1. No CPR. 2. Selective hospitalization. 3. Artificial nutrition would be acceptable in a temporary or limited manner. At the time, all in attendance felt that the patient's wishes were being heard and honored and that h e was able to participate in the conversation. I spoke to the patient's uncle today to review our prior conversation and discuss current hospitaliza tion. The patient's uncle has been regularly updated by the hospitalist service and feels that he siddiqui s a pretty good understanding of the patient's status. He was happy to hear that the patient is more awake and interactive today, but still understands the tenuousness of his nephew's situation. The p manuel's uncle and I again reviewed the patient's wishes and our discussion in April, particularly s urrounding issues of intubation and ventilatory support. The patient feels that the patient may not have fully understood the conversation we had and states that, in fact, he himself may not have fully understood it, given the complexity of pulmonary support in the setting of chronic interstitial lung disease. The patient's uncle states that he and the patient have had talks since our visit in , and at this point, given the very high risk that the patient may require chronic ventilatory suppo rt, he feels he would not wish to have the patient intubated at all and would prefer, instead, noninv asive management only. He simply feels that intubation and possible tracheostomy placement would not be good for his nephew and overall would be detrimental to quality of life. He also still feels michael t no CPR is appropriate. The patient did awaken during my visit. When asked if he remembered me, he said, yes, and he seemed to remember our visits over the summer. He denies headache now, but told me had a bad headache previ ously. He also denies any chest discomfort but states that his breathing is "rough." He was unable to give much more detailed information at that point, but again, was able to communicate that he is c urrently comfortable. PAST MEDICAL HISTORY: 1. Recurrent aspiration pneumonias with multiple prior hospitalizations. 2. Interstitial lung disease, felt to be secondary to chronic aspiration. 3. Cerebral palsy with developmental delay. 4. Traumatic brain injury with left hemiparesis. 5. Seizure disorder. 6. PTSD. 7. Major depressive disorder. MEDICATIONS: Currently: 1. Acetaminophen 650 mg p.o. q.4 hours p.r.n. mild pain or fever. 2. DuoNeb q.6 hours scheduled. 3. Unasyn 3 g q.6 hours IV. 4. Budesonide 0.5 inhalation daily. 5. Carbamazepine 200 mg p.o. t.i.d. 6. Citalopram 40 mg p.o. daily. 7. Depakote ER 500 mg p.o. daily and 1000 mg p.o. at h.s. 8. Lovenox 40 mg subcutaneous daily. 9. Lasix 10 mg p.o. daily. 10. Gabapentin 300 mg p.o. q.i.d. 11. Guaifenesin 600 mg p.o. b.i.d. 12. Lorazepam 1 mg IV q.4 hours p.r.n. seizures. 13. Solu-Medrol 60 mg IV q.6 hours. 14. Morphine 1 to 2 mg IV q.1 hour p.r.n. severe pain. 15. Zofran 4 mg IV q.4 hours p.r.n. nausea and vomiting. 16. Tamiflu 75 mg p.o. b.i.d. 17. MiraLAX 17 g p.o. daily p.r.n. constipation. 18. Phenergan 6.25 IV q.6 hours p.r.n. nausea or vomiting. 19. Sodium chloride 100 mL/h. 20. Flomax 0.4 mg p.o. nightly. 21. Aspercreme 1 application b.i.d. ALLERGIES: No known drug allergies. 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 His father is , and he is estranged from his m other. His uncle is [employer] estate attorney and lives in [place]. The patient's uncle is in frequent contact with the patient, as well as the [facility]. Patient is Gnosticist and atte nds bahai on occasion and feels kaitlin is an important support for him. He likes to draw with [employer] as pass time and stays fairly active in activities at the [employer]. REVIEW OF SYSTEMS: Unobtainable given patient's current condition. PHYSICAL EXAMINATION: VITAL SIGNS: Most recently recorded vitals show a blood pressure 119/68, hear t rate 78, respiratory rate of 22, sating 97% on 6 L humidified via mask. Temperature 36.7. GENERAL : On my evaluation, the patient is slow to awaken to verbal, but does awaken and is interactive as d iscussed above. He looks his stated age, and with moderately labored respirations. HEENT: Pupils e qual, round and reactive to light and accommodation. Oropharynx shows notable secretions, but area i s patent. PULMONARY: Patient has rhonchi with occasional wheezes bilaterally in all lung moore. H e has some mild accessory muscle use but no indrawing. CARDIOVASCULAR: Heart tones are distant and masked somewhat by his notable rhonchi; however, heart rate is regular with no murmurs, rubs or garrett ps appreciated. Peripheral pulses are +2 out of 3 with radial arteries and +1 out of 3 at the dorsal is pedis bilaterally. ABDOMEN: Bowel sounds are present and soft, nontender, nondistended without p alpable or pulsatile masses. EXTREMITIES: Shows 2+ pedal edema bilaterally, roughly to the knees. NEUROLOGIC: Left hemiparesis. Cranial nerves 2 through 12 appear grossly intact. There was no post uring or seizure activity during my exam. He was able to move his right side purposefully. DERM: P atient is not fully disrobed, so exam is limited; however, no acute lesions appreciated. ASSESSMENT AND PLAN: This is a 53-year-old male with a history of cerebral palsy, traumatic brain in jury, seizure disorder, chronic aspiration, and resultant interstitial fibrosis, being seen today for Palliative Care followup. 1. Influenza with pneumonia and possible aspiration. Patient is showing some improvement at this po int, and it is hopeful that he will continue to do so. His initial blood gas showed elevated pCO2 wi th normal pH, implying that he is chronically CO2 retaining at this time. I suspect the patient's fu nctional status will show a degree of decline after this event, although he did show good recovery fr om his event in January, the chronicity of his pneumonia will likely take a gradual toll on his functiona l status. His uncle shared with me that there are pulmonary function tests pending. At this point, w e will need to wait until he has shown a good degree of recovery before these will be helpful. 2. Goals of care: As detailed in the History of Present Illness above, patient's uncle and medical durable power of estate attorney now feels that intubation and ventilatory support would not be in his nephe w's interest, and he would like to avoid these interventions. I will discuss this further with Dr. Cheo maciel. The patient is listed as a [id number] and currently these wishes have not been breach ed in any way. The family's focus is still primarily on quality of life. Primary hope is to avoid a persistent vegetative state or an existence which would require long-term ventilatory management. 3. Palliative care followup: The patient's prior acuity was low at the time of our visit; however, following this hospitalization, he will need closer followup. We will arrange this through our offic e and monitor at time of discharge. I suspect he may require a rehabilitation stay, although, this, at this point, presumptive. I have supplied the patient's uncle medical durable power of estate attorney wi th my cell phone number and encouraged him to call with any further questions or needed support. We will attempt to follow while in the hospital as well. Thank you for this consultation and allowing us to participate in the care of this patient. TIME SPENT: 70 minutes with greater than 50% of this time spent in family counseling and coordinatio n of care. /[id number]/MODL
[2018-11-23] MEDS: TAMSULOSIN HCL 0.4 MG CAP PO SCH (20:19)
[2018-11-24] MEDS: TROLAMINE SALICYLATE 85 GM CRTUBE TP SCH ×3 (00:31→23:34)
[2018-11-24] MEDS: NS 1,000 ML IV SCH (02:40)
[2018-11-24] MEDS: IPRATROPIUM/ALBUTEROL 3 ML DEYVIAL IH SCH ×4 (05:28→22:18)
[2018-11-24] MEDS: methylPREDNISolone SOD SUCC 125 MG/2 ML VIAL IVP SCH (06:05)
[2018-11-24] MEDS: AMPICILLIN/SULBACTAM 3 GM in NS 100 ML IV SCH ×4 (06:07→23:39)
[2018-11-24] MEDS: CARBAMAZEPINE 100 MG CHEWABLE TAB PO SCH ×4 (10:00→23:31)
[2018-11-24] MEDS: FUROSEMIDE 20 MG TAB PO SCH (10:24)
[2018-11-24] MEDS: OSELTAMIVIR PHOSPHATE 75 MG CAP PO SCH ×2 (10:24→18:00)
[2018-11-24] MEDS: DIVALPROEX ER 500 MG TAB PO SCH ×2 (10:24→23:31)
[2018-11-24] MEDS: predniSONE 20 MG TAB PO SCH (10:25)
[2018-11-24] MEDS: GABAPENTIN 300 MG CAP PO SCH ×4 (10:30→23:30)
[2018-11-24] MEDS: guaiFENesin 600 MG TAB.ER PO SCH ×2 (10:30→23:31)
[2018-11-24] MEDS: CITALOPRAM 20 MG TAB PO SCH (10:30)
[2018-11-24] MEDS: ENOXAPARIN 40 MG/0.4 ML SYR SC SCH (13:00)
[2018-11-24] MEDS: BENEFIBER/NUTRISOURCE FIBER PKT 1 EACH PO SCH ×2 (20:25→23:33)
[2018-11-24] MEDS: BUDESONIDE 0.5 MG/2 ML AMPUL.NEB IH SCH (21:26)
[2018-11-24] MEDS: TAMSULOSIN HCL 0.4 MG CAP PO SCH (23:34)
[2018-11-25] MEDS: AMPICILLIN/SULBACTAM 3 GM in NS 100 ML IV SCH ×3 (05:30→18:21)
[2018-11-25] MEDS: GABAPENTIN 300 MG CAP PO SCH ×4 (05:30→20:29)
[2018-11-25] MEDS: BUDESONIDE 0.5 MG/2 ML AMPUL.NEB IH SCH (05:41)
[2018-11-25] MEDS: IPRATROPIUM/ALBUTEROL 3 ML DEYVIAL IH SCH ×4 (05:41→22:52)
[2018-11-25] MEDS: CITALOPRAM 20 MG TAB PO SCH (09:45)
[2018-11-25] MEDS: DIVALPROEX ER 500 MG TAB PO SCH ×2 (09:45→20:30)
[2018-11-25] MEDS: FUROSEMIDE 20 MG TAB PO SCH (09:45)
[2018-11-25] MEDS: OSELTAMIVIR PHOSPHATE 75 MG CAP PO SCH ×2 (09:45→17:02)
[2018-11-25] MEDS: ENOXAPARIN 40 MG/0.4 ML SYR SC SCH (09:45)
[2018-11-25] MEDS: guaiFENesin 600 MG TAB.ER PO SCH ×2 (09:46→20:31)
[2018-11-25] MEDS: predniSONE 20 MG TAB PO SCH (09:46)
[2018-11-25] MEDS: BENEFIBER/NUTRISOURCE FIBER PKT 1 EACH PO SCH ×2 (09:46→20:30)
[2018-11-25] MEDS: TROLAMINE SALICYLATE 85 GM CRTUBE TP SCH ×2 (09:47→21:53)
[2018-11-25] MEDS: NS 1,000 ML IV SCH (12:54)
--- NOTE | 2018-11-25 13:28 | ASMTCMCOM ---
CM Note CM Note Notes: 11/25/2018 Case Management Note Discussed case during rounds. Therapies recommending SNF rehab. Discussed with Maria from [facility] who prefers referrals to [facility] and [facility] in [place]. Left VM with [facility]PO[facility] to discuss placement options. Case Management d/c poc: SNF rehab pending acceptance. Case Management to follow. Date Signed: 11/25/2018 01:28 PM Electronically Signed By:Chary Yates RN
[2018-11-25] MEDS: CARBAMAZEPINE 100 MG CHEWABLE TAB PO SCH ×2 (17:02→20:29)
--- NOTE | 2018-11-25 17:41 | HOSPPROG ---
Hospitalist Progress Note Assessment/Plan: * Acute respiratory failure -still high O2 6L with increased WOB and wheeze/rhonchi -slow improvement * Influenza A -Tamiflu * Aspiration PNA -IV Unasyn -will add azithromycin due to slow improvement * Dysphagia -passed swallow with modified diet * Metabolic encephalopathy -still very confused * RAD exacerbation -steroids, nebs * ILD due to chronic aspiration * CP/DD/TBI with left hemiparesis -not at baseline - plan for rehab at discharge * Seizure disorder -home meds Subjective: still with respiratory difficulty Objective: Vital Signs Temp Pulse Resp BP Pulse Ox 36.6 C 60 19 97/58 L 97 11/25/18 16:00 11/25/18 16:25 11/25/18 16:25 11/25/18 16:00 11/25/18 16:25 Laboratory Results 11/24/18 05:05 11/23/18 03:10 11/24/18 11/25/18 11/26/18 05:59 05:59 05:59 Intake Total 3400 1360 180 Output Total 325 200 Balance 3075 1360 -20 d/w DR. Siegel - palliative care MD - they will continue to follow post discharge CXR viewed, my personal interpretation is - severe right infiltrate - Physical Exam Constitutional: chronically ill appearing, uncomfortable, unkempt, other ( increased WOB) Cardiovascular: regular rate and rhythym, no murmur, rub, or gallop Respiratory: expiratory wheeze, inspiratory crackles, respiratory distress, rhonchi Gastrointestinal: normoactive bowel sounds, soft, non-tender abdomen, no palpable masses Skin: no rashes or abrasions, no fluctuance, no induration Neurologic: weakness (left), No AAOx3 Psychiatric: encephalopathic, poor insight, poor judgement, poor memory, other ( somnolent, minimally interactive), No interacting appropriately, No agitated ICD10 Worksheet Patient Problems: Problems Problem Status Onset Hypoxemia Acute Cough Acute Aspiration pneumonia Acute Rectal bleeding Acute Hemorrhoid Acute Influenza A Acute Chronic obstructive pulmonary disease with acute exacerbation Acute
[2018-11-25] MEDS: AZITHROMYCIN IV 500 MG in NS 250 ML IV SCH (19:04)
[2018-11-25] MEDS: TAMSULOSIN HCL 0.4 MG CAP PO SCH (20:31)
[2018-11-26] MEDS: NS 1,000 ML IV SCH (01:02)
[2018-11-26] MEDS: GABAPENTIN 300 MG CAP PO SCH ×4 (05:24→21:24)
[2018-11-26] MEDS: AMPICILLIN/SULBACTAM 3 GM in NS 100 ML IV SCH ×2 (05:24)
[2018-11-26] MEDS: IPRATROPIUM/ALBUTEROL 3 ML DEYVIAL IH SCH (05:35)
[2018-11-26 05:40] LABS: PLATELET COUNT 87 10^3/uL (150-400)
[2018-11-26] MEDS ORDERED: FUROSEMIDE 20 MG/2 ML VIAL IVP ONE (09:11)
[2018-11-26] MEDS ORDERED: IPRATROPIUM/ALBUTEROL 3 ML DEYVIAL IH PRN (09:15)
[2018-11-26] MEDS ORDERED: ALBUTEROL 60 PUFFS/8 GM MDI IH PRN (09:16)
--- NOTE | 2018-11-26 09:22 | PDIAF ---
- Diagnosis Diagnosis: influenza, aspiration pna, RAD exacerbation Code Status: Do Not Resuscitate - Medication Management Sort Supervisor Antibiotics: see below for stop dates on PO steroids and antibiotics Discharge Medications: electronically signed and located in the Home Medication List. - Orders Services needed: Physical Therapy, Occupational Therapy, Speech Language Pathologist Isolation Type: Droplet Isolation Diet Texture: Dysphagia 1 - Pureed, Honey Thick Liquids, Meds Whole in Puree, Meds Crushed in Puree Additional Instructions: STOP prednisone Wednesday 11/29 STOP Tamiflu after 3 more doses STOP Augmentin after 11/29 dose STOP Azithromycin after 318 dose - Follow Up Care Current Providers and Referrals: NONE *PRIMARY CARE P,. [Primary Care Provider] - As per Instructions
--- NOTE | 2018-11-26 09:49 | ASMTLACE ---
NICOLE Length of stay for Answers: 4-6 days current admission Acuity / Level of Answers: Yes Care: Did the patient have an inpatient admission? Comorbidities - select Answers: Other Notes: Cerebral palsy; Lung all that apply disease; Seizure disord er # of Emergency department Answers: 5-8 visits in the last 6 months Social determinants Answers: Mental health diagnosis (anxiety, depression, pers onality disorders, etc.) Score: 15 Date Signed: 11/26/2018 09:49 AM Electronically Signed By:Emelia Lacy RN
[2018-11-26] MEDS: CITALOPRAM 20 MG TAB PO SCH (10:01)
[2018-11-26] MEDS: guaiFENesin 600 MG TAB.ER PO SCH ×2 (10:01→21:24)
[2018-11-26] MEDS: FUROSEMIDE 20 MG TAB PO SCH (10:02)
[2018-11-26] MEDS: OSELTAMIVIR PHOSPHATE 75 MG CAP PO SCH ×2 (10:04→16:57)
[2018-11-26] MEDS: DIVALPROEX ER 500 MG TAB PO SCH ×2 (10:04→21:24)
[2018-11-26] MEDS: predniSONE 20 MG TAB PO SCH (10:05)
[2018-11-26] MEDS: ENOXAPARIN 40 MG/0.4 ML SYR SC SCH (10:05)
--- NOTE | 2018-11-26 10:25 | ASMTCMCOM ---
CM Note CM Note Notes: DC cancelled d/t pt's breathing. Lalitha at [facility], Angella at [facility] and Uncle notified. DC Plan: [facility] Date Signed: 11/26/2018 10:24 AM Electronically Signed By:Emelia Lacy RN
[2018-11-26] MEDS: AMOXICILLIN/CLAVULANATE POT 875/125 MG TAB PO SCH ×2 (10:46→21:23)
[2018-11-26] MEDS: AZITHROMYCIN 250 MG TAB PO SCH (10:47)
[2018-11-26] MEDS: FLUTICASONE/SALMETER 250/50MCG DISKUS IH SCH ×2 (10:51→22:29)
[2018-11-26] MEDS: AZITHROMYCIN IV 500 MG in NS 250 ML IV SCH (10:52)
[2018-11-26] MEDS: TIOTROPIUM INHALER 18 MCG/DOSE 5 DOSE/MDI IH SCH (10:52)
[2018-11-26] MEDS: BUDESONIDE 0.5 MG/2 ML AMPUL.NEB IH SCH (10:52)
[2018-11-26] MEDS: CARBAMAZEPINE 100 MG CHEWABLE TAB PO SCH ×3 (11:14→21:24)
[2018-11-26] MEDS: BENEFIBER/NUTRISOURCE FIBER PKT 1 EACH PO SCH ×2 (11:15→21:23)
[2018-11-26] MEDS: TROLAMINE SALICYLATE 85 GM CRTUBE TP SCH (12:42)
[2018-11-26] MEDS: ACETYLCYSTEINE 10% IH/PO 4 ML VIAL IH SCH ×2 (16:17→22:25)
[2018-11-26] MEDS: ALBUTEROL 3 ML DEYVIAL IH SCH ×2 (16:17→22:26)
--- NOTE | 2018-11-26 18:38 | HOSPPROG ---
Hospitalist Progress Note Assessment/Plan: * Acute respiratory failure -very slow improvement * Influenza A -Tamiflu * Aspiration PNA -Augmentin, azithromycin * Dysphagia -passed swallow with modified diet * Metabolic encephalopathy -still very confused * RAD exacerbation -steroids, nebs * ILD due to chronic aspiration * CP/DD/TBI with left hemiparesis -not at baseline - plan for rehab at discharge * Seizure disorder -home meds Subjective: Patient looked pretty good this am and put in discharge order. Called by RN that resp status worsened again and concern for DC to SNF today with this much respiratory distress, discharge cancelled Objective: Vital Signs Temp Pulse Resp BP Pulse Ox 36.8 C 70 16 136/87 H 96 11/26/18 14:57 11/26/18 16:22 11/26/18 16:22 11/26/18 14:57 11/26/18 16:22 Laboratory Results 11/26/18 05:34 11/26/18 05:34 11/25/18 11/26/18 11/27/18 05:59 05:59 05:59 Intake Total 1360 1820 1000 Output Total 1450 3300 Balance 1360 370 -2300 - Physical Exam Constitutional: uncomfortable, No no apparent distress Cardiovascular: regular rate and rhythym, no murmur, rub, or gallop, edema Respiratory: expiratory wheeze, inspiratory crackles, respiratory distress, rhonchi Gastrointestinal: normoactive bowel sounds, soft, non-tender abdomen, no palpable masses Skin: no rashes or abrasions, no fluctuance, no induration Neurologic: No AAOx3 Psychiatric: encephalopathic, poor insight, poor judgement, poor memory, No interacting appropriately ICD10 Worksheet Patient Problems: Problems Problem Status Onset Hypoxemia Acute Cough Acute Aspiration pneumonia Acute Rectal bleeding Acute Hemorrhoid Acute Influenza A Acute Chronic obstructive pulmonary disease with acute exacerbation Acute
[2018-11-26] MEDS: TAMSULOSIN HCL 0.4 MG CAP PO SCH (21:24)
[2018-11-27] MEDS: TROLAMINE SALICYLATE 85 GM CRTUBE TP SCH ×2 (03:36→10:40)
[2018-11-27] MEDS: ACETYLCYSTEINE 10% IH/PO 4 ML VIAL IH SCH ×4 (04:57→21:59)
[2018-11-27] MEDS: ALBUTEROL 3 ML DEYVIAL IH SCH ×2 (04:57→09:53)
[2018-11-27] MEDS: GABAPENTIN 300 MG CAP PO SCH ×4 (05:09→20:08)
[2018-11-27] MEDS: BUDESONIDE 0.5 MG/2 ML AMPUL.NEB IH SCH ×2 (09:53→21:59)
[2018-11-27] MEDS: FLUTICASONE/SALMETER 250/50MCG DISKUS IH SCH (09:53)
[2018-11-27] MEDS: TIOTROPIUM INHALER 18 MCG/DOSE 5 DOSE/MDI IH SCH (09:53)
[2018-11-27] MEDS ORDERED: FUROSEMIDE 40 MG/4 ML VIAL IVP ONE (10:04)
[2018-11-27] MEDS: ENOXAPARIN 40 MG/0.4 ML SYR SC SCH (10:28)
[2018-11-27] MEDS: AMOXICILLIN/CLAVULANATE POT 875/125 MG TAB PO SCH ×2 (10:37→20:07)
[2018-11-27] MEDS: AZITHROMYCIN 250 MG TAB PO SCH (10:37)
[2018-11-27] MEDS: predniSONE 20 MG TAB PO SCH (10:38)
[2018-11-27] MEDS: DIVALPROEX ER 500 MG TAB PO SCH ×2 (10:38→20:08)
[2018-11-27] MEDS: guaiFENesin 600 MG TAB.ER PO SCH ×2 (10:38→20:08)
[2018-11-27] MEDS: CARBAMAZEPINE 100 MG CHEWABLE TAB PO SCH ×3 (10:38→20:08)
[2018-11-27] MEDS: CITALOPRAM 20 MG TAB PO SCH (10:38)
[2018-11-27] MEDS: BENEFIBER/NUTRISOURCE FIBER PKT 1 EACH PO SCH ×2 (10:39→20:07)
[2018-11-27] MEDS: FUROSEMIDE 20 MG TAB PO SCH (10:39)
--- NOTE | 2018-11-27 14:58 | ASMTCMCOM ---
CM Note CM Note Notes: Pt not ready for dc today, Lalitha at [facility] notified. Pt lives at [facility] homes, please notified when pt discharges, and Uncle (number in chart). DC Plan: [facility] Date Signed: 11/27/2018 02:57 PM Electronically Signed By:Emelia Lacy RN
--- NOTE | 2018-11-27 15:44 | HOSPPROG ---
Hospitalist Progress Note Assessment/Plan: * Acute respiratory failure -very slow improvement -increase resp support for secretion management -CPT, acapella -mucomyst nebs * Influenza A -Tamiflu - complete * Aspiration PNA -Augmentin, azithromycin * Dysphagia -passed swallow with modified diet * Metabolic encephalopathy -still very confused * RAD exacerbation -steroids, nebs -unable to coordinate for inhalers - change to nebs only * ILD due to chronic aspiration * CP/DD/TBI with left hemiparesis -not at baseline - plan for rehab at discharge * Seizure disorder -home meds Subjective: Very edematous, still poor resp status Objective: Vital Signs Temp Pulse Resp BP Pulse Ox 36.7 C 79 20 124/76 H 95 11/27/18 11:52 11/27/18 11:52 11/27/18 11:52 11/27/18 11:52 11/27/18 11:52 Microbiology 11/21/18 18:34 Blood Culture - Final Blood Laboratory Results 11/26/18 05:34 11/26/18 05:34 11/26/18 11/27/18 11/28/18 05:59 05:59 05:59 Intake Total 1820 1000 Output Total 1450 3750 Balance 370 -2750 - Physical Exam Constitutional: no apparent distress, appears nourished, not in pain Cardiovascular: regular rate and rhythym, no murmur, rub, or gallop, edema Respiratory: expiratory wheeze, inspiratory crackles, respiratory distress, rhonchi Gastrointestinal: normoactive bowel sounds, soft, non-tender abdomen, no palpable masses Skin: no rashes or abrasions, no fluctuance, no induration Neurologic: No AAOx3 Psychiatric: encephalopathic, poor insight, poor judgement, poor memory, No interacting appropriately ICD10 Worksheet Patient Problems: Problems Problem Status Onset Hypoxemia Acute Cough Acute Aspiration pneumonia Acute Rectal bleeding Acute Hemorrhoid Acute Influenza A Acute Chronic obstructive pulmonary disease with acute exacerbation Acute
[2018-11-27] MEDS: IPRATROPIUM/ALBUTEROL 3 ML DEYVIAL IH SCH ×2 (16:40→21:59)
[2018-11-27] MEDS: TAMSULOSIN HCL 0.4 MG CAP PO SCH (20:08)
--- NOTE | 2018-11-27 20:39 | HOSPPROG ---
Hospitalist Progress Note Assessment/Plan: advertising account executive hospitalist note Patient early this evening had a very brief seizure, reportedly 10-15 seconds per nursing staff. He has a seizure disorder and is on Depakote and Tegretol for this. No signs of injury or other acute consequences. I have discontinued promethazine as this can alter seizure threshold. I have decreased the dose of azithromycin which can also alter seizure threshold. In addition I have ordered a metabolic panel to check electrolyte levels, this is still pending I have also ordered Tegretol and Depakote levels. Objective: Vital Signs Temp Pulse Resp BP Pulse Ox 36.5 C 67 18 120/77 95 11/27/18 19:31 11/27/18 19:31 11/27/18 19:31 11/27/18 19:31 11/27/18 19:31 Microbiology 11/21/18 18:34 Blood Culture - Final Blood Laboratory Results 11/26/18 05:34 11/26/18 05:34 11/26/18 11/27/18 11/28/18 06:59 06:59 06:59 Intake Total 1820 1000 1306 Output Total 1250 3750 800 Balance 570 -2750 506 ICD10 Worksheet Patient Problems: Problems Problem Status Onset Chronic obstructive pulmonary disease with acute exacerbation Acute Influenza A Acute Aspiration pneumonia Acute Cough Acute Hemorrhoid Acute Hypoxemia Acute Rectal bleeding Acute
[2018-11-28] MEDS: TROLAMINE SALICYLATE 85 GM CRTUBE TP SCH ×2 (03:22→09:39)
[2018-11-28] MEDS: IPRATROPIUM/ALBUTEROL 3 ML DEYVIAL IH SCH ×4 (04:55→22:51)
[2018-11-28] MEDS: ACETYLCYSTEINE 10% IH/PO 4 ML VIAL IH SCH ×4 (04:55→22:50)
[2018-11-28] MEDS: GABAPENTIN 300 MG CAP PO SCH ×4 (05:20→20:57)
[2018-11-28] MEDS: ENOXAPARIN 40 MG/0.4 ML SYR SC SCH (09:34)
[2018-11-28] MEDS: AMOXICILLIN/CLAVULANATE POT 875/125 MG TAB PO SCH ×2 (09:35→20:56)
[2018-11-28] MEDS: FUROSEMIDE 20 MG TAB PO SCH (09:35)
[2018-11-28] MEDS: AZITHROMYCIN 250 MG TAB PO SCH (09:35)
[2018-11-28] MEDS: CITALOPRAM 20 MG TAB PO SCH (09:35)
[2018-11-28] MEDS: DIVALPROEX ER 500 MG TAB PO SCH ×2 (09:35→20:57)
[2018-11-28] MEDS: guaiFENesin 600 MG TAB.ER PO SCH ×2 (09:36→20:57)
[2018-11-28] MEDS: predniSONE 20 MG TAB PO SCH (09:36)
[2018-11-28] MEDS: CARBAMAZEPINE 100 MG CHEWABLE TAB PO SCH ×3 (09:36→21:01)
[2018-11-28] MEDS: BENEFIBER/NUTRISOURCE FIBER PKT 1 EACH PO SCH ×2 (09:36→20:56)
--- NOTE | 2018-11-28 10:28 | PDIAF ---
- Diagnosis Diagnosis: influenza, aspiration pna, RAD exacerbation Code Status: Do Not Resuscitate - Medication Management Wardrobe Consultant Antibiotics: see below for stop dates on PO steroids and antibiotics Discharge Medications: electronically signed and located in the Home Medication List. - Orders Services needed: Physical Therapy, Occupational Therapy, Speech Language Pathologist Isolation Type: Droplet Isolation Oxygen: CPT with percussor if available Diet Texture: Dysphagia 1 - Pureed, Honey Thick Liquids, Meds Whole in Puree, Meds Crushed in Puree Additional Instructions: STOP prednisone Wednesday 11/29 STOP Augmentin after 11/29 dose STOP Azithromycin after 11/29 dose - Follow Up Care Current Providers and Referrals: NONE *PRIMARY CARE P,. [Primary Care Provider] - As per Instructions
[2018-11-28] MEDS: BUDESONIDE 0.5 MG/2 ML AMPUL.NEB IH SCH ×2 (10:36→22:50)
--- NOTE | 2018-11-28 11:28 | ASDISCHSUM ---
Discharge Information Plan Status:Hospice-Inpatient Medically Cleared to Leave:12/01/2018 Discharge Date:12/01/2018 02:20 PM D/C Disposition:Hospice Facility ADT D/C Disposition:Hospice Facility Projected Discharge Date:12/01/2018 11:00 AM Transportation at D/C:ALS/BLS Discharge Delay Reason: Follow-Up Date:12/01/2018 11:00 AM Discharge Slot: Final Diagnosis: Placement Information Referral Type:Palliative Care Referral ID:[id number] Provider Name: Address 1: Phone Number: Address 2: Fax Number: City: Selection Factors: State: Referral Type:*Assisted/SNF Referral ID:[id number] Provider Name: Address 1: Phone Number: Address 2: Fax Number: City: Selection Factors: State: Referral Type:*Hospice Referral ID:[id number] Provider Name:[facility] Address 1:[address] [place] Address 2: City:[place] Selection Factors: State:[place] Patient Contact Information Contact Name:ENZO Relationship: Address: City: [facility] Phone: State/Zip Code: Email: Financial Information Financial Class:Medicare Primary Plan Desc:MEDICARE INPATIENT Primary Plan Number:[id number] Secondary Plan Desc:[place] Secondary Plan Number:[id number] Assessment Information LACE LACE Length of stay for Answers: 4-6 days current admission Acuity / Level of Answers: Yes Care: Did the patient have an inpatient admission? Comorbidities - select Answers: Other Notes: Cerebral palsy; Lung all that apply disease; Seizure disord er # of Emergency department Answers: 5-8 visits in the last 6 months Social determinants Answers: Mental health diagnosis (anxiety, depression, pers onality disorders, etc.) Score: 15 Date Signed: 11/26/2018 09:49 AM Electronically Signed By:Emelia Lacy RN [facility] CM Progress Note CM Note CM Note Notes: Patient admitted with ARF and RAD exacerbation, likely related to PNA and Influenza A infections. He has a hx of CP w developmental delay and lives at the [facility] where is dependent for most cares. Per PT eval, patient is normally able to transfer to and from his power chair with minimum to moderate assist and can reposition himself independently when supine. He is currently quite lethargic and unable to fully participate. PT will continue to see. A palliative care consult has also been ordered. Case Management will follow. Date Signed: 11/22/2018 01:06 PM Electronically Signed By:Yessi Shelton RN [facility] CM Progress Note CM Note CM Note Notes: Per palliative care consult a referral is sent to [facility] for outpatient palliative service. [facility] ([phone]) updated that pt will d/c with outpatient palliative. CM to follow. Date Signed: 11/23/2018 02:30 PM Electronically Signed By:ANATOLIY Rebolledo [facility] CM Progress Note CM Note CM Note Notes: 11/25/2018 Case Management Note Discussed case during rounds. Therapies recommending SNF rehab. Discussed with Maria from [facility] who prefers referrals to [facility] and [facility] in [place]. Left VM with MDPOA to discuss placement options. Case Management d/c poc: SNF rehab pending acceptance. Case Management to follow. Date Signed: 11/25/2018 01:28 PM Electronically Signed By:Chary Yates RN [facility] CM Progress Note CM Note CM Note Notes: DC cancelled d/t pt's breathing. Lalitha at [facility], Angella at [facility] and notified. DC Plan: [facility] Date Signed: 11/26/2018 10:24 AM Electronically Signed By:Emelia Lacy RN [facility] CM Progress Note CM Note CM Note Notes: Pt not ready for dc today, Lalitha at [facility] notified. Pt lives at [facility], please notified when pt discharges, and Uncle (number in chart). DC Plan: [facility] [place] Date Signed: 11/27/2018 02:57 PM Electronically Signed By:Emelia Lacy RN Case Management Discharge Plan Note Case Management Discharge Discharge Order Complete? Answers: Yes Patient to Obtain Answers: Other Notes: [facility] Medications Transportation Arranged Answers: [facility] will Pick (Date 12/01/2018 03:00 PM & Time) Case Management Transport Answers: Yes Form Complete Faxed Final Orders Answers: Yes Agency/Facility Transfer Answers: Yes Report Printed & Faxed to Receiving Agency Family Notified Answers: Yes Discharge Comments Notes: Pt is discharging to the [facility]. Maribeth from [facility] here and dropped of PCS form. RN to call report. Ry mckinnon and pt's uncle notified. Date Signed: 12/01/2018 02:23 PM Electronically Signed By:Emelia Lacy RN [facility] CM Progress Note CM Note CM Note Notes: Pt's discharge for today to [facility] SNF has been cancelled. Notified Lalitha at [facility]. IM was done, copy to pt and in chart. Date Signed: 11/28/2018 12:10 PM Electronically Signed By:ANATOLIY Portillo [facility] CM Progress Note CM Note CM Note Notes: Met with Pt, family (KODI Lopez via phone, Bernadette correa,), [facility] (pt's Home) staff Sandor Landaverde. and [facility] explained what Hospice Care offers and we explained what IP Rehab offered at Pt's request and Dr Edis Allred explained what the Pt's respiratory care needs were and felt they would [facility] be [facility]. Family decided to [facility]. Order for Hospice sent via [facility] to [facility] and Liz will call CM with a tile picker time tomorrow morning. CM available for needs. PLAN: Discharge to [facility] tomorrow Date Signed: 11/30/2018 03:02 PM Electronically Signed By:Yudy Powell Intervention Information Intervention Type:IM-Pt. Not Available Date of Service:11/26/2018 11:15 AM Patient Type:Inpatient Staff Member:Rosangela Flynn Hours: Discipline: Severity: Comment:
--- NOTE | 2018-11-28 12:11 | ASMTCMCOM ---
CM Note CM Note Notes: Pt's discharge for today to [facility] has been cancelled. Notified Lalitha at [facility]. IM was done, copy to pt and in chart. Date Signed: 11/28/2018 12:10 PM Electronically Signed By:ANATOLIY Portillo
--- NOTE | 2018-11-28 17:21 | HOSPPROG ---
Hospitalist Progress Note Assessment/Plan: * Acute respiratory failure -worsening status today - suspect mucus plugging -increase resp support for secretion management -CPT, acapella -mucomyst nebs -d/w Dr. 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 * CP/DD/TBI with left hemiparesis -not at baseline - plan for rehab at discharge * Seizure disorder -home meds CC time - 40 minutes Subjective: I was called by RN urgently to bedside due to increased respiratory distress, new retractions with paradoxical abdominal effort, not able to get up secretions Objective: Vital Signs Temp Pulse Resp BP Pulse Ox 37.3 C 84 24 H 118/84 H 93 11/28/18 15:30 11/28/18 16:05 11/28/18 16:05 11/28/18 15:30 11/28/18 16:05 Laboratory Results 11/26/18 05:34 11/27/18 20:35 11/27/18 11/28/18 11/29/18 05:59 05:59 05:59 Intake Total 1000 1546 Output Total 3750 1300 Balance -2750 246 CXR viewed, my personal interpretation is - chronic Right infiltrate unchanged - Physical Exam Constitutional: uncomfortable Cardiovascular: regular rate and rhythym, No edema Respiratory: expiratory wheeze, respiratory distress, rhonchi, other (increased WOB, retractions, abdominal breathing) Gastrointestinal: normoactive bowel sounds, soft, non-tender abdomen, no palpable masses Skin: no rashes or abrasions, no fluctuance, no induration Neurologic: No AAOx3 Psychiatric: encephalopathic, poor insight, poor judgement, poor memory, No interacting appropriately, No agitated ICD10 Worksheet Patient Problems: Problems Problem Status Onset Hypoxemia Acute Cough Acute Aspiration pneumonia Acute Rectal bleeding Acute Hemorrhoid Acute Influenza A Acute Chronic obstructive pulmonary disease with acute exacerbation Acute
[2018-11-28] MEDS: TAMSULOSIN HCL 0.4 MG CAP PO SCH (20:57)
[2018-11-29] MEDS: TROLAMINE SALICYLATE 85 GM CRTUBE TP SCH ×3 (02:17→21:59)
[2018-11-29] MEDS: ACETYLCYSTEINE 10% IH/PO 4 ML VIAL IH SCH ×4 (05:13→21:13)
[2018-11-29] MEDS: IPRATROPIUM/ALBUTEROL 3 ML DEYVIAL IH SCH ×4 (05:14→21:13)
[2018-11-29 05:48] LABS: PLATELET COUNT 91 10^3/uL (150-400)
[2018-11-29] MEDS: GABAPENTIN 300 MG CAP PO SCH ×4 (05:48→21:59)
[2018-11-29] MEDS ORDERED: LIDOCAINE 2% JELLY 6 ML TOPICAL SYR TP PRN (06:47)
[2018-11-29] MEDS: guaiFENesin 600 MG TAB.ER PO SCH ×2 (08:46→21:59)
[2018-11-29] MEDS: AMOXICILLIN/CLAVULANATE POT 875/125 MG TAB PO SCH ×2 (08:46→21:58)
[2018-11-29] MEDS: ENOXAPARIN 40 MG/0.4 ML SYR SC SCH (08:46)
[2018-11-29] MEDS: CARBAMAZEPINE 100 MG CHEWABLE TAB PO SCH ×3 (08:47→21:59)
[2018-11-29] MEDS: predniSONE 20 MG TAB PO SCH (08:48)
[2018-11-29] MEDS: AZITHROMYCIN 250 MG TAB PO SCH (08:48)
[2018-11-29] MEDS: CITALOPRAM 20 MG TAB PO SCH (08:49)
[2018-11-29] MEDS: FUROSEMIDE 20 MG TAB PO SCH (08:49)
[2018-11-29] MEDS: DIVALPROEX ER 500 MG TAB PO SCH ×2 (09:08→21:58)
[2018-11-29] MEDS: BUDESONIDE 0.5 MG/2 ML AMPUL.NEB IH SCH ×2 (09:52→21:12)
[2018-11-29] MEDS: BENEFIBER/NUTRISOURCE FIBER PKT 1 EACH PO SCH ×2 (10:13→21:59)
--- NOTE | 2018-11-29 13:18 | PDPCPN ---
Palliative Care Progress Note Assessment/Plan: Assessment: 1) Influenza with Aspiration - patient intermittently mucous plugging, in respiratory distress and c/o chest pain during my visit. Patient's uncle/MDPOA does not wish to pursue bronchoscopy given risk of intubation, and would prefer instead to focus on comfort and quality of life. We discussed hospice services as an alternative, and Govind feels this would be most appropriate for his nephew. Discussed in detail with Dr. Moon who is in agreement with this plan and will enter hospice consult. Plan: 1) Hospice admission. 11/29/18 13:14 Subjective: 53 year old male with cerebral palsy and history of TBI, long history of aspiration pneumonias and pulmonary fibrosis. Patient dyspneic on my arrival, able to report that he has pain in his right chest with inspiration and feels short of breath. Per my discussion with Dr. Moon, patient has changed notably since earlier this morning. Spoke with patient's uncle/MDPOA Govind Pollard, who voices his concern regarding bronchoscopy and the possibility of intubation. He feels John would not tolerate aggressive interventions, and would rather focus instead on comfort. We discussed hospice services at length and Govind feels this would be best care for John. Objective: Vital Signs Awakens to verbal, shallow respirations, labored, speaks in 2-3 word fragments, ashen with audible secretions. HEENT - PERRLA, moist oral mucosa, scant visible secretions CHEST - moving little air, using accessory muscles, no indrawing, markedly diminished breath sounds in RLL CVS - RRR, no MRG ABD - bowel sounds scant but present, soft, NT, ND NEURO - no focal findings EXTS - no CCE, ?slight duskiness Temp Pulse Resp BP Pulse Ox 37.3 C 73 16 92/56 L 92 11/29/18 12:00 11/29/18 12:00 11/29/18 12:00 11/29/18 12:00 11/29/18 12:00 Laboratory Results 11/29/18 04:57 11/29/18 04:57 11/28/18 11/29/18 11/30/18 05:59 05:59 05:59 Intake Total 1546 300 Output Total 1300 1250 Balance 246 -950 - Time Spent With Patient Time Spent With Patient: TIME SPENT - 45 minutes, with greater than 50% of this time spent in family counseling and coordination of care. ICD10 Worksheet Patient Problems: Problems Problem Status Onset Hypoxemia Acute Cough Acute Aspiration pneumonia Acute Rectal bleeding Acute Hemorrhoid Acute Influenza A Acute Chronic obstructive pulmonary disease with acute exacerbation Acute
--- NOTE | 2018-11-29 14:18 | HOSPPROG ---
Hospitalist Progress Note Assessment/Plan: 53y male with SOB. First encounter, chart reviewed. D/W Dr Navarro Correa, [facility]. Bedside eval * Acute respiratory failure -worsening status today - suspect mucus plugging -increase resp support for secretion management -CPT, acapella -mucomyst nebs -d/w Dr. 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 Subjective: C/O coughing. Some discomfort. Objective: Vital Signs Temp Pulse Resp BP Pulse Ox 37.3 C 74 16 92/56 L 95 11/29/18 12:00 11/29/18 13:15 11/29/18 13:15 11/29/18 12:00 11/29/18 13:15 Laboratory Results 11/29/18 04:57 11/29/18 04:57 11/28/18 11/29/18 11/30/18 05:59 05:59 05:59 Intake Total 1546 300 Output Total 1300 1250 Balance 246 -950 - Physical Exam Constitutional: appears nourished, chronically ill appearing, uncomfortable Eyes: PERRL, anicteric sclera, EOMI Ears, Nose, Mouth, Throat: moist mucous membranes, hearing normal, ears appear normal Cardiovascular: regular rate and rhythym, tachycardia, No JVD, No edema Respiratory: reduced air movement, expiratory wheeze, rhonchi, No clear to auscultation Gastrointestinal: normoactive bowel sounds, No tenderness, No ascites Skin: warm, No mottled, No induration Musculoskeletal: generalized weakness, No normal joint ROM, No joint effusion Neurologic: No AAOx3 Psychiatric: not encephalopathic, poor insight, poor judgement, poor memory ICD10 Worksheet Patient Problems: Problems Problem Status Onset Hypoxemia Acute Cough Acute Aspiration pneumonia Acute Rectal bleeding Acute Hemorrhoid Acute Influenza A Acute Chronic obstructive pulmonary disease with acute exacerbation Acute
--- NOTE | 2018-11-29 15:45 | PDCONSULT ---
Program Therapist Note: ASSESSMENT 53-year-old male with multiple medical problems including severe CP, admitted with influenza a pneumonia and acute on chronic hypoxemic respiratory failure complicated by possible aspiration pneumonia versus pneumonitis. After reviewing patient's clinical course imaging and overall status I do not feel he warrants an inpatient bronchoscopy. # acute on chronic hypoxemic respiratory failure. Underlying chronic lung disease worsened by influenza pneumonia possible aspiration # influenza a pneumonia received Tamiflu # COPD with reactive component. received high dose steroids until 11/24 now on pred 40 # nodular-fibrotic lung disease. recurrent aspiration and possible DEJA based on imaging # aspiration pneumonitis versus pneumonia. Started Unasyn. # cerebral palsy # history of TBI # reactive airways disease PLAN # s/p tamiflu # savannah with Augmentin to complete 7 day total course of abx # decrease prednisone to 10 mg daily x 3 days then stop (order placed) # aggressive chest physiotherapy # add flutter valve # agree with duonebs # no role for bronchoscopy at this point given clinical status and imaging # continue OP meds per hospital medicine # agree with palliative care consult Thank you for this consult. Please feel free to call or page with questions DATA IMAGING 11/28/2018 CXR chronic fibrotic changes. Possible right perihilar infiltrate consistent with superior segment of right lower lobe however grossly unchanged from prior imaging. 10/27/18 CTA chest no PE, mixed emphysemia and nodulofibrotic lung disease LABS reviewed significant for down trending leukocytosis stable hemoglobin 13.2, platelets 91, influenza positive CONSULT I was asked by Dr Lynn of [facility] to evaluate this patient for respiratory failure and possible bronchoscopy CC Difficulties breathing ZAID Gomez is a very pleasant 53-year-old male with developmental delay due to cerebral palsy complicated by a subsequent traumatic brain injury with recently diagnosed influenza a pneumonia and possible superimposed aspiration as well as acute on chronic shortness of breath and hypoxemic respiratory failure. Patient states he was using short of breath with fevers, chills, malaise and shortness of Breath prior to admission. He denies nausea, vomiting. When admitted he was placed on Unasyn and given higher dose steroids-60 mg IV q.6 of Solu-Medrol. He initially did required 7 liters/minute non-rebreather however oxygen sat is subsequently decreased then increased again. Allergies NKDA MEDS a medication reconciliation was performed and reviewed. Please see EMR for specific medications and doses MED HX Severe cerebral palsy, dysphagia, seizure disorder, chronic lung disease on home oxygen, depression, TBI, interstitial lung disease Social history Former smoker as with assistance [facility] Family history No family history of CP Review of systems Unable to be obtained due to mental status EXAM VITALS temperature 37.3 degrees, heart rate 73, blood pressure 92/56-125/82, respiratory rate 16 95% 4 L nasal cannula GEN: NAD, up in chair, interactive NEURO: A&Ox3, CN 2-12 GI HEENT: PERRL, EOMI, MMM, OP clear NECK: supple, trachea midline CHEST normal shape, no pes excavatum CVS: rrr no m/r/g PULM: CTA B, no wheezes/rales/rhonchi ABD: soft, NT, ND, NABS EXT: no swelling, no cyanosis, full ROM SKIN: warm, dry, intact, no rash PSYCH CAM negative, appropriate affect
[2018-11-29] MEDS: predniSONE 10 MG TAB PO SCH ×2 (16:56→17:37)
--- NOTE | 2018-11-29 17:55 | WOCRNPDOC ---
WOCRN Advanced Assessment Note - Skin Integrity Problem, Advanced Assess Coccyx Pressure Injury Dressing Type: Open to Air Zee Wound Tissue: Blanching, Erythema Site Measurement - Head-to-Toe Length X Width X Depth (cm): 1x1x0 Pressure Injury Stage: Stage 1 Pressure Injury Present on Admit: No Skin Integrity Problem Comment: Zee wound skin intact and lightly erythematic, but all blanching. No dermatitis nor breakdown. Altogether the skin looks very healthy. Che SCHAEFER in room for care. Wound care will sign off.
[2018-11-29] MEDS: TAMSULOSIN HCL 0.4 MG CAP PO SCH (21:59)
[2018-11-30] MEDS: GABAPENTIN 300 MG CAP PO SCH ×4 (05:00→20:31)
[2018-11-30] MEDS: ACETYLCYSTEINE 10% IH/PO 4 ML VIAL IH SCH ×4 (05:21→20:51)
[2018-11-30] MEDS: IPRATROPIUM/ALBUTEROL 3 ML DEYVIAL IH SCH ×4 (05:21→20:52)
[2018-11-30] MEDS: ENOXAPARIN 40 MG/0.4 ML SYR SC SCH (08:21)
[2018-11-30] MEDS: BENEFIBER/NUTRISOURCE FIBER PKT 1 EACH PO SCH ×2 (08:23→20:31)
[2018-11-30] MEDS: DIVALPROEX ER 500 MG TAB PO SCH ×2 (08:24→20:31)
[2018-11-30] MEDS: CITALOPRAM 20 MG TAB PO SCH (08:24)
[2018-11-30] MEDS: CARBAMAZEPINE 100 MG CHEWABLE TAB PO SCH ×3 (08:25→21:58)
[2018-11-30] MEDS: guaiFENesin 600 MG TAB.ER PO SCH ×2 (08:25→20:31)
[2018-11-30] MEDS: FUROSEMIDE 20 MG TAB PO SCH (08:25)
[2018-11-30] MEDS: TROLAMINE SALICYLATE 85 GM CRTUBE TP SCH ×2 (08:26→20:34)
[2018-11-30] MEDS: BUDESONIDE 0.5 MG/2 ML AMPUL.NEB IH SCH ×2 (12:04→20:51)
--- NOTE | 2018-11-30 14:24 | HOSPPROG ---
Hospitalist Progress Note Assessment/Plan: 53y male with SOB and severe CP, admitted with influenza a pneumonia and acute on chronic hypoxemic respiratory failure complicated by possible aspiration pneumonia versus pneumonitis. D/W [facility] and family. # acute on chronic hypoxemic respiratory failure -Underlying chronic lung disease worsened by influenza pneumonia possible aspiration -treated with abx therapy -reoccurring mucus plugging requiring aggressive therapy -CPT, flutter, acapella # COPD with reactive component. 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 -discussed at length with family at bedside Subjective: Feeling ok. Still SOB. Objective: Vital Signs Temp Pulse Resp BP Pulse Ox 37.2 C 76 18 110/69 92 11/30/18 12:45 11/30/18 12:45 11/30/18 12:45 11/30/18 12:45 11/30/18 12:45 Laboratory Results 11/29/18 04:57 11/29/18 04:57 11/29/18 11/30/18 12/01/18 05:59 05:59 05:59 Intake Total 300 360 Output Total 1250 1350 Balance -950 -990 - Physical Exam Constitutional: appears nourished, not in pain, chronically ill appearing Eyes: PERRL, anicteric sclera, EOMI Ears, Nose, Mouth, Throat: moist mucous membranes, hearing normal, ears appear normal Cardiovascular: regular rate and rhythym, No JVD, No edema Respiratory: reduced air movement, expiratory wheeze, rhonchi Gastrointestinal: normoactive bowel sounds, No tenderness, No ascites Skin: warm, normal color, No mottled Musculoskeletal: no joint effusions, generalized weakness, No normal joint ROM Psychiatric: not anxious, not encephalopathic, poor judgement, poor memory ICD10 Worksheet Patient Problems: Problems Problem Status Onset Hypoxemia Acute Cough Acute Aspiration pneumonia Acute Rectal bleeding Acute Hemorrhoid Acute Influenza A Acute Chronic obstructive pulmonary disease with acute exacerbation Acute
--- NOTE | 2018-11-30 15:03 | ASMTCMCOM ---
CM Note CM Note Notes: Met with Pt, family (KODI Lopez via phone, Bernadette aunt,), [facility] staff Angella& Akhil. and [facility] explained what Hospice Care offers and we explained what IP Rehab offered at Pt's request and Dr Edis Allred explained what the Pt's respiratory care needs were and felt they would [facility] be [facility] at [facility]. Family decided to have [facility]. Order for Hospice sent via [employer] to [facility] and Liz will call CM with a bulk picker time tomorrow morning. CM available for needs. PLAN: Discharge to [facility] tomorrow Date Signed: 11/30/2018 03:02 PM Electronically Signed By:Yudy Powell
[2018-11-30] MEDS: TAMSULOSIN HCL 0.4 MG CAP PO SCH (20:31)
[2018-12-01] MEDS: GABAPENTIN 300 MG CAP PO SCH ×2 (05:09→13:21)
[2018-12-01] MEDS: ACETYLCYSTEINE 10% IH/PO 4 ML VIAL IH SCH ×2 (05:49→10:48)
[2018-12-01] MEDS: IPRATROPIUM/ALBUTEROL 3 ML DEYVIAL IH SCH ×2 (05:49→10:48)
--- NOTE | 2018-12-01 08:46 | HOSPPROG ---
Hospitalist Progress Note Assessment/Plan: 53y male with SOB and severe CP, admitted with influenza a pneumonia and acute on chronic hypoxemic respiratory failure complicated by possible aspiration pneumonia versus pneumonitis. First encounter, previous provider spoke w family and [facility]. # acute on chronic hypoxemic respiratory failure -recurrent mucus plugging, underlying RAD, pna # COPD with reactive component. 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 Objective: Vital Signs Temp Pulse Resp BP Pulse Ox 37.1 C 82 18 113/85 H 92 12/01/18 07:12 12/01/18 07:12 12/01/18 07:12 12/01/18 07:12 12/01/18 07:12 Laboratory Results 11/29/18 04:57 11/29/18 04:57 11/30/18 12/01/18 12/02/18 05:59 05:59 05:59 Intake Total 360 200 Output Total 1350 1150 Balance -990 -950 - Physical Exam Constitutional: not in pain, chronically ill appearing Eyes: PERRL Ears, Nose, Mouth, Throat: hearing normal Cardiovascular: regular rate and rhythym Respiratory: No no respiratory distress (breath sounds very diminished, poor cough effort, increase wob w talking) Gastrointestinal: normoactive bowel sounds Genitourinary: hardin in urethra Skin: warm, No normal color (pale) Psychiatric: interacting appropriately ICD10 Worksheet Patient Problems: Problems Problem Status Onset Chronic obstructive pulmonary disease with acute exacerbation Acute Influenza A Acute Aspiration pneumonia Acute Cough Acute Hemorrhoid Acute Hypoxemia Acute Rectal bleeding Acute
[2018-12-01] MEDS: guaiFENesin 600 MG TAB.ER PO SCH (09:53)
[2018-12-01] MEDS: FUROSEMIDE 20 MG TAB PO SCH (09:53)
[2018-12-01] MEDS: BENEFIBER/NUTRISOURCE FIBER PKT 1 EACH PO SCH (09:53)
[2018-12-01] MEDS: CITALOPRAM 20 MG TAB PO SCH (09:53)
[2018-12-01] MEDS: CARBAMAZEPINE 100 MG CHEWABLE TAB PO SCH (09:54)
[2018-12-01] MEDS: DIVALPROEX ER 500 MG TAB PO SCH (09:54)
[2018-12-01] MEDS: ENOXAPARIN 40 MG/0.4 ML SYR SC SCH (09:56)
[2018-12-01] MEDS: TROLAMINE SALICYLATE 85 GM CRTUBE TP SCH (10:06)
[2018-12-01] MEDS: BUDESONIDE 0.5 MG/2 ML AMPUL.NEB IH SCH (10:48)
[2018-12-01 11:41] VITALS: BP 107/66
--- NOTE | 2018-12-01 11:43 | PDIAF ---
- Diagnosis Diagnosis: influenza, aspiration pna, RAD exacerbation Code Status: Do Not Resuscitate - Medication Management Discharge Medications: electronically signed and located in the Home Medication List. - Orders Services needed: Physical Therapy, Occupational Therapy, Speech Language Pathologist Isolation Type: Droplet Isolation Oxygen: CPT with percussor if available Diet Recommendation: no restrictions on diet Diet Texture: Dysphagia 1 - Pureed, Honey Thick Liquids, Meds Whole in Puree, Meds Crushed in Puree Additional Instructions: care per hospice - Follow Up Care Current Providers and Referrals: NONE *PRIMARY CARE P,. [Primary Care Provider] - As per Instructions
--- NOTE | 2018-12-01 12:20 | GDS ---
[f rep st] DISCHARGE SUMMARY DISCHARGE DIAGNOSES: 1. Acute on chronic hypoxemic respiratory failure. 2. Chronic obstructive pulmonary disease. 3. Influenza A. 4. Aspiration pneumonia. 5. Dysphagia. 6. Metabolic encephalopathy. 7. Reactive airway disease. 8. Interstitial lung disease due to chronic aspiration. 9. 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 10. Seizure disorder. CONSULTATION: 1. Dr. Navarro Correa. 2. Dr. Gato Alvarado. HISTORY AND HOSPITAL COURSE: Briefly, this patient is a 53-year-old male who is developmentally cory yed due to cerebral palsy. He lives at [facility]. He had a fever and shortness of breath and siddiqui ving coughing. He was admitted and treated for the influenza as well as aspiration pneumonia. He wa s slow to improve. He was seen and evaluated by Dr. Navarro Correa, palliative care physician. The go als of care were discussed. Because he has chronic mucous plugging, he was seen and evaluated by the grounds foreman who thought this would only temporarily help him. Today, he will be discharged to [facility] care facility. HOSPITAL COURSE PER PROBLEM: 1. Acute on chronic hypoxemic respiratory failure. This is multifactorial including recurrent mucou s plugging, underlying reactive airway disease, as well as pneumonia. He is on 4 L. 2. COPD. He was on high-dose steroids. He is no longer on them. 3. Influenza A. He was treated with Tamiflu. 4. Aspiration pneumonia. He was treated with Augmentin and azithromycin. 5. Dysphagia. He will be on dysphagia diet. 6. Metabolic encephalopathy. Overall stable but I am unsure of his baseline. 7. Reactive airway disease exacerbation, stable. 8. Interstitial lung disease. This is due to chronic aspiration. 9. Cerebral palsy, developmentally delayed with traumatic brain injury. He will be going to hospice care facility. Apparently, he is not at his baseline per the facility. 10. Seizure disorder. Home medications. DISCHARGE CONDITION: Stable. Blood pressure is 107/66, heart rate 79, respiratory rate of 18, O2 sa turation on 5 L are 95%, temperature is 37.2 Celsius. MEDICATIONS AT DISCHARGE: Please see the EMR. DISCHARGE INSTRUCTIONS: Care per hospice. Greater than 30 minutes discharging and coordinating the patient's care. /[id number]/MODL
--- NOTE | 2018-12-01 14:24 | ASMTDCNOTE ---
Case Management Discharge Discharge Order Complete? Answers: Yes Patient to Obtain Answers: Other Notes: [facility] Medications Transportation Arranged Answers: [facility] will Pick (Date 12/01/2018 03:00 PM & Time) Case Management Transport Answers: Yes Form Complete Faxed Final Orders Answers: Yes Agency/Facility Transfer Answers: Yes Report Printed & Faxed to Receiving Agency Family Notified Answers: Yes Discharge Comments Notes: Pt is discharging to the [facility]. Maribeth from [facility] here and dropped of PCS form. RN to call report. [facility] and pt's uncle notified. Date Signed: 12/01/2018 02:23 PM Electronically Signed By:Emelai Lacy RN
== END 2018-12-01 14:20 | disposition hospice, home (50) | DRG 177 ==
LOC: F2W 21:50 → F3E 11-25 22:28
PROVIDERS: ADMIT Internal Medicine; ATTEND Internal Medicine
DX: J69.0 Pneumonitis due to inhalation of food and vomit (principal); J96.21 Acute and chronic respiratory failure with hypoxia; G93.41 Metabolic encephalopathy; G80.8 Other cerebral palsy; J44.0 Chronic obstructive pulmonary disease with (acute) lower respiratory infection; J44.1 Chronic obstructive pulmonary disease with (acute) exacerbation; E86.9 Volume depletion, unspecified; R13.10 Dysphagia, unspecified; J84.89 Other specified interstitial pulmonary diseases; G40.909 Epilepsy, unspecified, not intractable, without status epilepticus; Z99.81 Dependence on supplemental oxygen; Z87.891 Personal history of nicotine dependence; Z87.820 Personal history of traumatic brain injury; F43.10 Post-traumatic stress disorder, unspecified; F32.9 Major depressive disorder, single episode, unspecified; Z66 Do not resuscitate; J10.1 Influenza due to other identified influenza virus with other respiratory manifestations
CPT/HCPCS: 92526-GN; 92610-GN; 96365; 97116-GP; 97163-GP; 97166-GO; 97530-GO; 97530-GP; 97535-GO; J0295; J0456; J1650; J1940; J2060; J2930; J7512; J7613; J7626